=== PATIENT | female | born 1985 | race Caucasian/White ===

== ENCOUNTER 2024-03-09 08:19 | Outpatient (AMB) | payer OTHER, SELFPAY ==
--- NOTE | 2024-03-09 08:29 | A.OFFVIS_ITS ---
Vital Signs 03/09/24 08:42 Height 6 ft 3 in Weight 250 lb BMI 31.2 Handedness Right Intake Visit Reasons: [employer]ATOR-Left lower back pain Intake Note: Radha is a 38 year old female who presents today as a new patient with complaints of left lower back pain. Patient reports that she has had worsening left sided lower back pain for about 2 months now. She reports that they tweaked her back about 10 years ago and ever since then she has had on and off pain for years now. With episodes of pain she was able to ice and rest and have the pain resolve. Recently when moving boxed this pain has returned, increased pain, numbness and tingling radiating down the left leg. Has tried steroids (prednisone), muscle relaxers, and OTC NSIADS with no relief. Allergies Sulfa (Sulfonamide Antibiotics) Allergy (Verified 03/09/24 08:37) Anaphylaxis Medication List - Last Reconciled 03/09/24 by Aziza Goyal MD 5-hydroxytryptophan (5-HTP) 50 mg PO BID albuterol sulfate 2 mg PO Q8H atorvastatin 10 mg PO DAILY bupropion HCl XL 300 mg PO QAM buspirone 15 mg PO BID cetirizine (All Day Allergy (cetirizine)) 10 mg PO DAILY PRN docusate sodium 100 mg PO BID estradiol (Estrace) 2 mg PO DAILY finasteride 1 mg PO DAILY fluticasone propionate 44 mcg/actuation 1 puff inhalation BID lisinopril 20 mg PO DAILY medroxyprogesterone 2.5 mg PO DAILY omeprazole 20 mg PO DAILY HPI Comments Details: Per review of PCP notes, patient has history of long COVID, knee DJD, hypermobility of joints, bipolar, ADHD, chronic hormone treatment, asthma, postural hypotension. Here with partner. Was doing well 2 months ago. Started after mowing and moving boxes. She had tweaked back before on/off, but this time it did not get better with usual rest and NSAIDs. Continued with left sided pain, down to left thigh, with buzzing on left calf. Some tingling/pins/needles on left thigh but not on toes. Sense of weakness, left knee and hip. Left groin. Treatment done so far: Prescribed prednisone by PCP - helped partially done exercises and stretches at home No imaging or PT yet. PFSH Surgical History (Updated 03/09/24 @ 08:42 by Roselia Moran CMA) Hx laparoscopic cholecystectomy Status post left foot surgery Social History (Updated 03/09/24 @ 08:42 by Roselia Moran CMA) Patient Tobacco Use Status: Never used Tobacco Current occupational status: unemployed Review of Systems Const All systems reviewed & are unremarkable except as noted in HPI and below Physical Exam Vital Signs: BMI result Body Mass Index 31.2 Constitutional: Patient appears to be in no acute distress, well nourished and well developed. Patient was appropriately conversant and oriented. Good historian. MSK: No specific abnormalities found on inspection of the spine and all extremities. No pain with palpation over the lumbar area. No tenderness overuj spinous processes or facets are paraspinals. Tender on left SI joint and slightly on gluteus muscles. Nontender and GT. Lumbar ROM was full. Bilateral hip, knee and ankle ROM WNL. No ligamentous laxity or crepitance. No increased effusion. Straight-leg raising test negative. FABERE test positive left back pain. Strength is 5/5 in all muscle groups tested. No increased tone noted. Neurological: Neurologic examination of the upper and lower extremities was nonfocal with intact sensation, muscle stretch reflexes and without focal motor deficits . Francisco?s negative bilaterally. Babinski was down going bilaterally. Clonus was negative. Gait is antalgic without loss of balance. Results Reviewed Results Reviewed: I reviewed records from the following: Notes from [facility] Assessment & Plan Assessment & Plan (1) Sacroiliac joint dysfunction of left side: Code(s): M53.3 - Sacrococcygeal disorders, not elsewhere classified Category: Medical Plan Acute onset left-sided back pain, presenting as left SI joint dysfunction. No signs of lumbar radiculopathy or myelopathy on exam. Discussed what SI joint dysfunction is with patient. Recommend starting physical therapy. Referral placed. Getting lumbar x-rays just for our information today, but lower suspicion this is lumbar related. As patient has already tried medications such as anti-inflammatories and muscle relaxants, she has looking for a more definitive pain relief. We discussed possible left SI joint injection. She understands that I will have to refer to pain management for the injection to be done under fluoroscopy or ultrasound. Patient is eager to proceed. Assessment and plan discussed with patient, and patient was agreeable. All questions were answered thoroughly. Follow-up after injection. Aziza Goyal MD, ELENA Board Certified, [place] [employer] and Rehabilitation (ABPMR) Board Certified, [place] [employer] Electrodiagn[employer] (ABEM) Orders: Orders XR lumbar spine 2-3V Today M53.3 - Sacrococcygeal disorders, not elsewhere classified, M54.9 - Dorsalgia, unspecified PT Evaluation and Treatment Today M53.3 - Sacrococcygeal disorders, not e lsewhere classified Referrals Pain Management Referral M53.3 - Sacrococcygeal disorders, not elsewhere classified Coding Level of Care Code New Pt Level 4 (72846) Diagnoses Sacroiliac joint dysfunction of left side M53.3
[2024-03-09 08:42] VITALS: BMI 31.2
== END 2024-03-09 09:47 | disposition home or self-care (01) ==
PROVIDERS: PCP Family Medicine; Visit Provider Physical Medicine & Rehabilitation
DX: M53.3 Sacrococcygeal disorders, not elsewhere classified (principal)
CPT/HCPCS: 99204

== ENCOUNTER 2024-03-09 08:19 | Outpatient (REF) | payer OTHER, SELFPAY ==
--- NOTE | ~2024-03-09 | XR_ITS ---
EXAMINATION: XR LUMBOSACRAL SPINE CLINICAL INFORMATION: Back pain COMPARISON: None available. TECHNIQUE: Three views of the lumbosacral spine. FINDINGS: Surgical clips in the right upper quadrant. Mild levoscoliosis of the lumbar spine. Straightening of the normal lumbar lordosis. Facet arthritis in the lower lumbar spine. Mild degenerative changes at L5-S1. XR/XR lumbar spine 2-3V IMPRESSION: Mild degenerative changes at L5-S1.
== END 2024-03-09 08:20 | disposition home or self-care (01) ==
LOC: HO.HOSX 08:19
PROVIDERS: PCP Family Medicine; Visit Provider Physical Medicine & Rehabilitation
DX: M53.3 Sacrococcygeal disorders, not elsewhere classified (principal); M54.9 Dorsalgia, unspecified
CPT/HCPCS: 72100

== ENCOUNTER 2024-03-16 08:15 | Outpatient (AMB) | payer OTHER, SELFPAY ==
--- NOTE | 2024-03-16 08:18 | MHC.OFFVIS ---
Vital Signs 03/16/24 08:41 Height 6 ft 3 in Weight 252 lb BMI 31.5 BP 131/74 Blood Pressure Location Lt brachial Position Sitting Respiration 18 Pulse 78 Pulse Source Pulse Oximeter Pulse Oximetry (%) 97 Oxygen Delivery Method Room Air Intake Visit Reasons: Sacrococcygeal disorders, not elsewhere classified Intake Note: Patient comes in for initial visit was referred by Orthopedics. Reports pain 04/30. Allergies Sulfa (Sulfonamide Antibiotics) Allergy (Verified 03/09/24 08:37) Anaphylaxis HPI Comments Details: Radha is very pleasant 38 y.o. Female who is in my office with c/o pain in the left side of the lower back with radiation into posterior surface of the left hip and tingling sensation in the left upper calf. She reports that this pain started to bother her almost 3 months ago. She reports that heavy lifting and moving staff in her house was the cause of her pain. She can not sleep normally because of her pain can not do activities of daily living she can not take care of herself but she can not function normally. She is unemployed and applying for permanent disability for bipolar disorder autism and ADHD. She reports difficulty walking due to the pain. She reports that movements aggravate her pain application of heat and cold make her pain slightly better. In terms of tissue damage he reports her pain as tingling, stinging, dull, hurting, heavy, fearful, fried full, terrifying, spreading, radiating, piercing. She currently takes NSAIDs and muscle relaxants to help her pain. She reports that muscle relaxants help her to sleep at night but NSAIDs help her pain very minimally. She was seen by Dr. Ramos for this problem and was referred to me. She had x-ray of the lumbar spine on 03/09/2024 the x-rays not read yet. I personally evaluated the x-ray the maybe minimal L5 retrolisthesis on S1 otherwise unremarkable x-ray. She was sent for physical therapy however due to staffing shortage at physical therapy office she is scheduled to start physical therapy only in 03/28/2024. She did not have chiropractic manipulations or massage therapy. She never was given sacroiliac joint belt. She never received any injections. Her past medical history significant for headaches, hypertension she is on lisinopril, she is suffering from ADHD, bipolar, and autism. She has history of asthma GERD irritable bowel syndrome gastritis and hiatal hernia. She has bilateral knee arthritis. Past surgical history cholecystectomy 2019, some sort of a procedure for the foot when she was in 4th grade and she had unknown abdominal surgery 37 years ago. She denies smoking cigarettes drinking alcohol she drinks several cups of coffee per day she denies recreational drugs, but admits that she had drinking problems in college. Never was in rehab. [facility] Surgical History (Updated 03/09/24 @ 08:42 by Roselia Moran CMA) Hx laparoscopic cholecystectomy Status post left foot surgery Social History (Updated 03/09/24 @ 08:42 by Roselia Moran CMA) Patient Tobacco Use Status: Never used Tobacco Current occupational status: unemployed Review of Systems Const All systems reviewed & are unremarkable except as noted in HPI and below Reports no additional complaints Card Reports no additional complaints Resp Reports no additional complaints GI Reports no additional complaints Reports no additional complaints Musc Reports as per HPI Neuro Reports no additional complaints Psych Reports as per HPI Physical Exam Vital Signs: Last Vital Signs Pulse 78 03/16/24 08:41 Resp 18 03/16/24 08:41 BP 131/74 03/16/24 08:41 Pulse Ox 97 03/16/24 08:41 Oxygen Delivery Method Room Air 03/16/24 08:41 BMI result Body Mass Index 31.5 Constitutional: Patient appears to be in no acute distress, well nourished and well developed. Patient was appropriately conversant and oriented. Good historian. MSK: No specific abnormalities found on inspection of the spine and all extremities. No pain with palpation over the lumbar area. No tenderness overuj spinous processes or facets are paraspinals. Tender on left SI joint and slightly on gluteus muscles. Nontender and GT. Limited range of motion of lumbar spine unable to flex forward or backwards due to severe pain in the projection of left SI joint. Luis test is negative bilaterally however Gaenslen test is positive on the left and performance of Gaenslen test on the right and Stinchfield test on the right cause pain aggravation on the left. Pelvic compression aggravates the pain but not pelvic distraction. Fourteen finger test is positive for pain increase. Bilateral hip, knee and ankle ROM WNL. No ligamentous laxity or crepitance. No increased effusion. Straight-leg raising test negative. Able to stand on bilateral tiptoes and bilateral heels without difficulty able to lift 1st toe in separation of the rest of the toes without difficulty. That demonstrates normal L4-5 S1 muscular function. Neurological: Neurologic examination of the upper and lower extremities was nonfocal with intact sensation, muscle stretch reflexes and without focal motor deficits . Gait is antalgic without loss of balance. Assessment & Plan Assessment & Plan (1) Sacroiliitis: Code(s): M46.1 - Sacroiliitis, not elsewhere classified Category: Medical (2) Sacroiliac joint dysfunction of left side: Code(s): M53.3 - Sacrococcygeal disorders, not elsewhere classified Category: Medical Plan I offered this patient diagnostic sacroiliac joint injection to diagnose her joint pain. She will start physical therapy in week and a half. I will see the patient after sacroiliac joint injection. She has extensive psych history and this could be on our way with neuromodulation in this patient. Patient Instructions: I here by testify that I spent 45 minutes in conversation with this patient as well as evaluating images in her chart which were not read by radiologist, as well as planning her care and organizing this note. Coding Level of Care Code New Pt Level 4 (29037) Diagnoses Sacroiliitis M46.1 Sacroiliac joint dysfunction of left side M53.3
[2024-03-16 08:41] VITALS: BP 131/74; PULSE 78; RESP 18; O2SAT 97; BMI 31.5
== END 2024-03-16 08:57 | disposition home or self-care (01) ==
PROVIDERS: PCP Family Medicine; Visit Provider Anesthesiology
DX: M46.1 Sacroiliitis, not elsewhere classified (principal); M53.3 Sacrococcygeal disorders, not elsewhere classified
CPT/HCPCS: 99204

== ENCOUNTER → 2024-03-16 08:15 | Outpatient (BNVA) | payer OTHER, SELFPAY | PROVIDERS: PCP Family Medicine; Visit Provider Anesthesiology ==

== ENCOUNTER 2024-04-04 09:20 | Outpatient (AMB) | payer OTHER, SELFPAY ==
--- NOTE | 2024-04-04 09:24 | A.OFFVIS_ITS ---
Vital Signs 04/04/24 10:51 Height 6 ft 2 in Weight 252 lb 4 oz BMI 32.4 BP 132/68 Blood Pressure Location Lt brachial Position Sitting Respiration 18 Pulse 82 Pulse Source Pulse Oximeter Pulse Oximetry (%) 98 Oxygen Delivery Method Room Air Intake Visit Reasons: X-ray showed mild degeneration Intake Note: Patient comes in to discuss Xray results. Reports pain 03/30. Allergies Sulfa (Sulfonamide Antibiotics) Allergy (Verified 04/04/24 10:52) Anaphylaxis HPI Comments Details: Radha is very pleasant 38 y.o. Female who is in my office with c/o pain in the left side of the lower back with radiation into posterior surface of the left hip and tingling sensation in the left upper calf. She was diagnosed with sacroiliitis and we were scheduling her for sacroiliac joint injection. She has waiting for the procedure. She reports severe pain today. She is here to discuss the results of the x-ray of the lumbar spine. Lumbar spine results are dictated as below. There is evidence of arthritis on the lumbar spine x-ray. If SI joint injection will be not helpful for controlling her pain medial branch block L3 L4-5 on the left could be ordered diagnostic to figure out where her pain is coming from. He has PTSD and anxiety history her ability to receive neuromodulation is limited. Prior: She reports that this pain started to bother her almost 3 months ago. She reports that heavy lifting and moving staff in her house was the cause of her pain. She reports difficulty walking due to the pain. She reports that movements aggravate her pain application of heat and cold make her pain slightly better.. She reports that muscle relaxants help her to sleep at night but NSAIDs help her pain very minimally. She was seen by Dr. Ramos for this problem and was referred to me. She had x-ray of the lumbar spine on 03/09/2024 the x-rays not read yet. I personally evaluated the x-ray the maybe minimal L5 retrolisthesis on S1 otherwise unremarkable x-ray. She was sent for physical therapy however due to staffing shortage at physical therapy office she is scheduled to start physical therapy only in 03/28/2024. She did not have chiropractic manipulations or massage therapy. She never was given sacroiliac joint belt. She never received any injections. Her past medical history significant for headaches, hypertension she is on lisinopril, she is suffering from ADHD, bipolar, and autism. She has history of asthma GERD irritable bowel syndrome gastritis and hiatal hernia. She has bilateral knee arthritis. Past surgical history cholecystectomy 2020, some sort of a procedure for the foot when she was in 4th grade and she had unknown abdominal surgery 37 years ago. [facility] Surgical History (Updated 03/09/24 @ 08:42 by Roselia Moran CMA) Hx laparoscopic cholecystectomy Status post left foot surgery Social History (Updated 03/09/24 @ 08:42 by Roselia Moran CMA) Patient Tobacco Use Status: Never used Tobacco Current occupational status: unemployed Review of Systems Const All systems reviewed & are unremarkable except as noted in HPI and below Physical Exam Vital Signs: Last Vital Signs Pulse 82 04/04/24 10:51 Resp 18 04/04/24 10:51 BP 132/68 04/04/24 10:51 Pulse Ox 98 04/04/24 10:51 Oxygen Delivery Method Room Air 04/04/24 10:51 BMI result Body Mass Index 32.4 Constitutional: Patient appears to be in no acute distress, well nourished and well developed. Patient was appropriately conversant and oriented. Good historian. MSK: No specific abnormalities found on inspection of the spine and all extremities. No pain with palpation over the lumbar area. No tenderness overuj spinous processes or facets are paraspinals. Tender on left SI joint and slightly on gluteus muscles. Nontender and GT. Limited range of motion of lumbar spine unable to flex forward or backwards due to severe pain in the projection of left SI joint. Luis test is negative bilaterally however Gaenslen test is positive on the left and performance of Gaenslen test on the right and Stinchfield test on the right cause pain aggravation on the left. Pelvic compression aggravates the pain but not pelvic distraction. Fourteen finger test is positive for pain increase. Bilateral hip, knee and ankle ROM WNL. No ligamentous laxity or crepitance. No increased effusion. Straight-leg raising test negative. Able to stand on bilateral tiptoes and bilateral heels without difficulty able to lift 1st toe in separation of the rest of the toes without difficulty. That demonstrates normal L4-5 S1 muscular function. Neurological: Neurologic examination of the upper and lower extremities was nonfocal with intact sensation, muscle stretch reflexes and without focal motor deficits . Gait is antalgic without loss of balance. Results Reviewed Results Reviewed: X-ray lumbar spine: 03/09/24 Findings: Surgical clips in the right upper quadrant. Mild levoscoliosis in the lumbar spine. Straightening of the normal lumbar lordosis. Facet arthritis in the lower lumbar spine. Mild degenerative changes L5-S1. Assessment & Plan Assessment & Plan (1) Sacroiliitis: Code(s): M46.1 - Sacroiliitis, not elsewhere classified Category: Medical (2) Sacroiliac joint dysfunction of left side: Code(s): M53.3 - Sacrococcygeal disorders, not elsewhere classified Category: Medical Plan I offered this patient diagnostic sacroiliac joint injection to diagnose her joint pain. The procedure is scheduled on 04/12/2024. She started physical therapy. X-ray discussion as above. She has arthritis in the lower lumbar spine. If diagnostic SI joint injection will not be working medial branch block L3-L4 dorsal ramus L5 on the left can be tried to diagnose her pain. Coding Level of Care Code Est Pt Level 3 (28889) Diagnoses Sacroiliitis M46.1 Sacroiliac joint dysfunction of left side M53.3
[2024-04-04 10:51] VITALS: BP 132/68; PULSE 82; RESP 18; O2SAT 98; BMI 32.4
== END 2024-04-04 09:38 | disposition home or self-care (01) ==
PROVIDERS: PCP Family Medicine; Visit Provider Anesthesiology
DX: M46.1 Sacroiliitis, not elsewhere classified (principal); M53.3 Sacrococcygeal disorders, not elsewhere classified
CPT/HCPCS: 99214

== ENCOUNTER → 2024-04-04 09:20 | Outpatient (BNVA) | payer OTHER, SELFPAY | PROVIDERS: PCP Family Medicine; Visit Provider Anesthesiology ==

== ENCOUNTER 2024-04-05 07:20 | Outpatient (REF) | payer OTHER, SELFPAY ==
--- NOTE | ~2024-04-05 | FL_ITS ---
EXAMINATION: XR FLUOROSCOPY WITH IMAGES CLINICAL INFORMATION: Sacrococcygeal disorder. COMPARISON: None available. TECHNIQUE: Fluoroscopy Supervised By: Dr. Dl Moran. Fluoroscopy Time: 0.1 minutes. Cumulative Dose: 3.76 mGy. DAP: 0.0653 Gy-cm2. Images: 5. FINDINGS: Intraoperative fluoroscopy and spot films were performed during a procedure in the OR. The needle is seen overlying the left SI joint with contrast seen around the needle tip. Please correlate with Dr. Dl Moran's report for complete details. FL/FL guidance in treatment room IMPRESSION: Intraoperative fluoroscopy and spot films were obtained. Please see Dr. Dl Moran's report for complete details.
== END 2024-04-05 07:21 | disposition home or self-care (01) ==
LOC: CF 07:20
PROVIDERS: Visit Provider Anesthesiology
DX: M53.3 Sacrococcygeal disorders, not elsewhere classified (principal)
CPT/HCPCS: 27096; J2795; Q9967

== ENCOUNTER 2024-04-05 07:29 | Outpatient (AMB) | payer OTHER, SELFPAY ==
[2024-04-05 07:38] VITALS: BP 118/62; PULSE 89; RESP 14; O2SAT 98; BMI 31.2
--- NOTE | 2024-04-05 07:38 | MHC.OFFVIS ---
Vital Signs 04/05/24 07:38 04/05/24 08:11 Height 6 ft 3 in Weight 250 lb BMI 31.2 BMI Reason not done Palliative Care Patient BP 118/62 130/70 Blood Pressure Location Lt brachial Lt brachial Position Sitting Sitting Respiration 14 14 Pulse 89 84 Pulse Source Pulse Oximeter Pulse Oximeter Pulse Oximetry (%) 98 98 Oxygen Delivery Method Room Air Room Air Comment Pre-Op Post-Op Intake Visit Reasons: Left Diagnostic SIJ INJ Security Support Analyst Required: No Accompanied by: Family/Other Allergies Sulfa (Sulfonamide Antibiotics) Allergy (Verified 04/04/24 10:52) Anaphylaxis PFSH Surgical History (Updated 03/09/24 @ 08:42 by Roselia Moran CMA) Hx laparoscopic cholecystectomy Status post left foot surgery Social History (Updated 03/09/24 @ 08:42 by Roselia Moran CMA) Patient Tobacco Use Status: Never used Tobacco Current occupational status: unemployed Physical Exam Vital Signs: Last Vital Signs Pulse 84 04/05/24 08:11 Resp 14 04/05/24 08:11 BP 130/70 04/05/24 08:11 Pulse Ox 98 04/05/24 08:11 Oxygen Delivery Method Room Air 04/05/24 08:11 BMI result Body Mass Index 31.2 Assessment & Plan Assessment & Plan (1) Sacroiliitis: Code(s): M46.1 - Sacroiliitis, not elsewhere classified Category: Medical (2) Sacroiliac joint dysfunction of left side: Code(s): M53.3 - Sacrococcygeal disorders, not elsewhere classified Category: Medical Plan Left diagnostic sacroiliac joint injection Informed consent was explained thoroughly to the patient. All questions about benefits and risks for the procedure were answered. Patient came to the operating room and was positioned prone on the operating table with the pillow under the pelvis. Time out was performed delineating name and of the patient, allergies and the nature of the procedure. The lower back and buttocks of the patient were prepped with ChloraPrep prepped and draped with sterile utility towels. C-arm was brought over the operating field and sq picture of patient's pelvis was demonstrated on the screen. For the left joint tilting C-arm contralateral to the site of the joint the most posterior portion of the joints was superimposed with anterior silhouette of the joint. Skin was injected in the projection of the joint slightly medial to the location of the joint with 25 gauge 1/2 inch needle using local lidocaine 2% .After that 22 gauge 3 and 1/2 inch needle was driven to the right joint in tunnel vision fashion. When needle entered the joint capsule injection of the contrast was performed demonstrating intra-articular and minimally periarticular spread of the contrast. After that 4 cc. of ropivacaine 0.5% was injected into the joint. Upon completion of the injections the needle was removed Sterile dressing was applied. Upon completion of the injection patient was taken outside of the operating room to the recovery room where recovered uneventfully. Orders: Orders FL guidance in treatment room Today M53.3 - Sacrococcygeal disorders, not elsewhere classified Coding Level of Care Code Procedure Only Diagnoses Sacroiliitis M46.1 Sacroiliac joint dysfunction of left side M53.3
[2024-04-05 08:11] VITALS: BP 130/70; PULSE 84; RESP 14; O2SAT 98
== END 2024-04-05 08:12 | disposition home or self-care (01) ==
PROVIDERS: PCP Family Medicine; Visit Provider Anesthesiology
DX: M46.1 Sacroiliitis, not elsewhere classified (principal); M53.3 Sacrococcygeal disorders, not elsewhere classified
CPT/HCPCS: 27096

== ENCOUNTER 2024-04-08 11:19 | Outpatient (AMB) | payer OTHER, SELFPAY ==
--- NOTE | 2024-04-08 11:22 | MHC.OFFVIS ---
Intake Visit Reasons: left dx sij injection Intake Note: Pain today 3/10 Epitaxial Reactor Technician Required: No Accompanied by: Self / Same As Patient Allergies Sulfa (Sulfonamide Antibiotics) Allergy (Verified 04/08/24 11:29) Anaphylaxis HPI Comments Details: Radha is back in my office with the reports of the results of diagnostic left sacroiliac joint injection. She reported that she had pain 7/10 before the procedure. Immediately after the procedure she had pain 6/10. 1 hour after procedure she had pain 4/10. 2 hours after the procedure she had pain 6/10. 3 hours after the procedure she had pain 6/10. 4 hours after the procedure she had pain 4/10 as well as 6 and 5 hours after the procedure. However in her description of daily activities after the procedure it was very clear that her ability to perform activities of daily living and mobility greatly improved after the injection. I still am willing to consider at least some of her pain related to sacroiliitis. She reports that today 3 days after the procedure her pain is 3/10. She reports better mobility better activities of daily living better social interaction. I decided to perform therapeutic sacroiliac joint injection on the left for the patient. She continues to report pain in the projection of the sacral bone. For the investigation with bony CT of the pelvis might be required. Prior: c/o pain in the left side of the lower back with radiation into posterior surface of the left hip and tingling sensation in the left upper calf. She was diagnosed with sacroiliitis and we were scheduling her for sacroiliac joint injection. She has waiting for the procedure. She reports severe pain today. She is here to discuss the results of the x-ray of the lumbar spine. Lumbar spine results are dictated as below. There is evidence of arthritis on the lumbar spine x-ray. If SI joint injection will be not helpful for controlling her pain medial branch block L3 L4-5 on the left could be ordered diagnostic to figure out where her pain is coming from. He has PTSD and anxiety history her ability to receive neuromodulation is limited. Prior: She reports that this pain started to bother her almost 3 months ago. She reports that heavy lifting and moving staff in her house was the cause of her pain. She reports difficulty walking due to the pain. She reports that movements aggravate her pain application of heat and cold make her pain slightly better.. She reports that muscle relaxants help her to sleep at night but NSAIDs help her pain very minimally. She was seen by Dr. Ramos for this problem and was referred to me. She had x-ray of the lumbar spine on 03/09/2024 the x-rays not read yet. I personally evaluated the x-ray the maybe minimal L5 retrolisthesis on S1 otherwise unremarkable x-ray. She was sent for physical therapy however due to staffing shortage at physical therapy office she is scheduled to start physical therapy only in 03/28/2024. She did not have chiropractic manipulations or massage therapy. She never was given sacroiliac joint belt. She never received any injections. Her past medical history significant for headaches, hypertension she is on lisinopril, she is suffering from ADHD, bipolar, and autism. She has history of asthma GERD irritable bowel syndrome gastritis and hiatal hernia. She has bilateral knee arthritis. Past surgical history cholecystectomy 2019, some sort of a procedure for the foot when she was in 4th grade and she had unknown abdominal surgery 37 years ago. [facility] Surgical History (Updated 03/09/24 @ 08:42 by Roselia Moran CMA) Hx laparoscopic cholecystectomy Status post left foot surgery Social History (Updated 03/09/24 @ 08:42 by Roselia Moran CMA) Patient Tobacco Use Status: Never used Tobacco Current occupational status: unemployed Review of Systems Const All systems reviewed & are unremarkable except as noted in HPI and below Physical Exam Constitutional: Patient appears to be in no acute distress, well nourished and well developed. Patient was appropriately conversant and oriented. Good historian. MSK: No specific abnormalities found on inspection of the spine and all extremities. No pain with palpation over the lumbar area. No tenderness overuj spinous processes or facets are paraspinals. Tender on left SI joint and slightly on gluteus muscles. Nontender and GT. Limited range of motion of lumbar spine unable to flex forward or backwards due to severe pain in the projection of left SI joint. Luis test is negative bilaterally however Gaenslen test is positive on the left and performance of Gaenslen test on the right and Stinchfield test on the right cause pain aggravation on the left. Pelvic compression aggravates the pain but not pelvic distraction. Fourteen finger test is positive for pain increase. Bilateral hip, knee and ankle ROM WNL. No ligamentous laxity or crepitance. No increased effusion. Straight-leg raising test negative. Able to stand on bilateral tiptoes and bilateral heels without difficulty able to lift 1st toe in separation of the rest of the toes without difficulty. That demonstrates normal L4-5 S1 muscular function. Neurological: Neurologic examination of the upper and lower extremities was nonfocal with intact sensation, muscle stretch reflexes and without focal motor deficits . Gait is antalgic without loss of balance. Assessment & Plan Assessment & Plan (1) Sacroiliitis: Code(s): M46.1 - Sacroiliitis, not elsewhere classified Category: Medical (2) Sacroiliac joint dysfunction of left side: Code(s): M53.3 - Sacrococcygeal disorders, not elsewhere classified Category: Medical Plan Diagnostic sacroiliac joint injection seem to be covering at least 1 of the patient's pain generators. The pain got decreased for 3 days from 7/10 to 3/10. Better mobility and better social interactions better activities of daily living are demonstrated. I will schedule patient for left therapeutic sacroiliac joint injection. I also will consider investigation of other pain generators including medial branches and or spinal stenosis in the future if I will receive only partial pain relief after the therapeutic SI joint injection. Coding Level of Care Code Est Pt Level 3 (95124) Diagnoses Sacroiliitis M46.1 Sacroiliac joint dysfunction of left side M53.3
== END 2024-04-08 11:44 | disposition home or self-care (01) ==
PROVIDERS: PCP Family Medicine; Visit Provider Anesthesiology
DX: M46.1 Sacroiliitis, not elsewhere classified (principal); M53.3 Sacrococcygeal disorders, not elsewhere classified
CPT/HCPCS: 99213

== ENCOUNTER → 2024-04-08 11:19 | Outpatient (BNVA) | payer OTHER, SELFPAY | PROVIDERS: PCP Family Medicine; Visit Provider Anesthesiology ==

== ENCOUNTER 2024-05-17 15:00 | Outpatient (RCR) | payer OTHER, SELFPAY ==
--- NOTE | 2024-03-29 09:51 | MHC.PT.EP ---
[facility] [place] [facility] [place] [facility] [place] [facility] [address] Gerald Rodriguez [address] [phone] F: [phone] F: [phone] F: [phone] F: [phone] Physical Therapy Plan of Care Date of Evaluation: 03/28/24 Date of Surgery: N/A Diagnosis: left SI (RL) Assessment: pt is a 39 y/o female presenting to physical therapy w/ referring diagnosis of left SI. Impairments include pain, decreased range of motion, decreased strength, impaired functional mobility, impaired postural awareness, and altered ambulation mechanics. pt is a good candidate for skilled PT due to age, potential remediation of impairments, typical disease/condition progression and prognosis, comorbidities, and motivation. pt would benefit from skilled PT intervention to provide a tailored strengthening and stretching exercise program, functional training, gait training, postural re-training, neuromuscular re-education, modalities as needed for pain, equipment safety demonstration. Frequency and Duration: The patient will be seen 2x/wk for 4 wks Short Term Goals: pt will be I w/ HEP to promote self-management of condition. pt will improve lumbar flexion by at least 25% to promote ease in lower body dressing. pt will demo proper sitting posture w/ lumbar roll to promote neutral spine w/ seated ADLs. [facility] Goals: pt will report a statistically significant improvement in self-reported outcome measure, Ines, to promote return to PLOF. pt will demo proper lifting mechanics w/o verbal cueing to promote neutral spine w/ automotive artist. Treatment Plan: Modalities to reduce pain, spasms and effusion. Manual therapy to restore motion and function. Therapeutic exercise to improve strength and flexibility. Neuromuscular re-education for posture and balance. Therapeutic activities to return to functional activities of daily living. Electronically signed by: Cookie Jeffers PT, DPT Please sign and return to therapist. Thank you for your referral.
--- NOTE | 2024-05-17 16:16 | MHC.PT.DC ---
[facility] [place] Office [place] Office [place] Office [address] Gerald Rodriguez [address] [phone] F: [phone] F: [phone] F: [phone] F: [phone] Physical Therapy Discharge Report Diagnosis: left SI (RL) Date of Surgery: N/A Date of Evaluation: 03/28/24 Date of Discharge: 05/17/24 Treatments to Date: 9 Cancellations to Date: 2 No Shows to Date: 0 Discharge Status: Achieved Goals Improved Function Independent with HEP Discharge Summary: Pt reported no radicular sx throughout today's session. She has made significant improvement toward functional goals, remediation of some strength deficits, core stability, and self-management of symptoms. HEP reviewed. Pt is discharged from this physical therapy plan of care with recommendations to continue HEP. Electronically signed by: Cookie Jeffers PT, DPT Please sign and return to therapist. Thank you for your referral.
--- NOTE | 2024-05-17 16:16 | MHC.PT.DC ---
[facility] [address] [place] Office [place] Office [address] Gerald Rodriguez [address] [phone] F: [phone] F: [phone] F: [phone] F: [phone] Physical Therapy Discharge Report Diagnosis: left SI (RL) Date of Surgery: N/A Date of Evaluation: 03/28/24 Date of Discharge: 05/17/24 Treatments to Date: 9 Cancellations to Date: 2 No Shows to Date: 0 Discharge Status: Achieved Goals Improved Function Independent with HEP Discharge Summary: Pt reported no radicular sx throughout today's session. She has made significant improvement toward functional goals, remediation of some strength deficits, core stability, and self-management of symptoms. HEP reviewed. Pt is discharged from this physical therapy plan of care with recommendations to continue HEP. Electronically signed by: Cookie Jeffers PT, DPT Please sign and return to therapist. Thank you for your referral.
--- NOTE | 2024-05-17 16:18 | MHC.PT.DC ---
[facility] [place] Office [place] Office [place] Office [address] Gerald Rodriguez [address] [phone] F: [phone] F: [phone] F: [phone] F: [phone] Physical Therapy Discharge Report Diagnosis: left SI (RL) Date of Surgery: N/A Date of Evaluation: 03/28/24 Date of Discharge: 05/17/24 Treatments to Date: 9 Cancellations to Date: 2 No Shows to Date: 0 Discharge Status: Achieved Goals Improved Function Independent with HEP Discharge Summary: Pt reported no radicular sx throughout today's session. She has made significant improvement toward functional goals, remediation of some strength deficits, core stability, and self-management of symptoms. HEP reviewed. Pt is discharged from this physical therapy plan of care with recommendations to continue HEP. Electronically signed by: Cookie Jeffers PT, DPT Please sign and return to therapist. Thank you for your referral.
--- NOTE | 2024-05-17 16:19 | MHC.PT.DC ---
[facility] [place] Office [place] Office [place] Office [address] Gerald Rodriguez [address] [phone] F: [phone] F: [phone] F: [phone] F: [phone] Physical Therapy Discharge Report Diagnosis: left SI (RL) Date of Surgery: N/A Date of Evaluation: 03/28/24 Date of Discharge: 05/17/24 Treatments to Date: 9 Cancellations to Date: 2 No Shows to Date: 0 Discharge Status: Achieved Goals Improved Function Independent with HEP Discharge Summary: Pt reported no radicular sx throughout today's session. She has made significant improvement toward functional goals, remediation of some strength deficits, core stability, and self-management of symptoms. HEP reviewed. Pt is discharged from this physical therapy plan of care with recommendations to continue HEP. Electronically signed by: Cookie Jeffers PT, DPT Please sign and return to therapist. Thank you for your referral.
== END 2024-05-17 16:19 | disposition home or self-care (01) ==
LOC: HO.PT 15:00
PROVIDERS: PCP Family Medicine; Visit Provider Physical Medicine & Rehabilitation
DX: M53.3 Sacrococcygeal disorders, not elsewhere classified (principal)
CPT/HCPCS: 97110; 97112; 97140; 97162; 97164

== ENCOUNTER 2024-07-21 11:06 | Emergency (ER) | payer OTHER, SELFPAY | END 2024-07-21 15:35 | disposition left against medical advice (07) | PROVIDERS: Emergency Provider Emergency Medicine; PCP Family Medicine | DX: Z53.21 Procedure and treatment not carried out due to patient leaving prior to being seen by health care provider (principal) ==

== ENCOUNTER 2024-11-02 08:30 | Outpatient (AMB) | payer OTHER, SELFPAY ==
[2024-11-02 08:38] VITALS: BP 142/78; PULSE 90; O2SAT 99; BMI 31.2
--- NOTE | 2024-11-02 08:38 | MHC.OFFVIS ---
Vital Signs 11/02/24 08:38 Height 6 ft 3 in Weight 250 lb BMI 31.2 BP 142/78 H Blood Pressure Location Rt brachial Position Sitting Pulse 90 Pulse Source Pulse Oximeter Pulse Oximetry (%) 99 Oxygen Delivery Method Room Air Intake Visit Reasons: IBS-D. Initial per [facility]. Intake Note: NEW PATIENT for IBS Consult initial Prior hx of colo/egd? Within the last 3 years via [place] Chief Complaint; Pt recently moved to the area. Previously est scot [facility]; Reflux with mixed results to PPI treatment, hx of hiatal hernia + gastritis. S/P cholecystectomy. Director Of Guidance Required: No Accompanied by: Self / Same As Patient Allergies Sulfa (Sulfonamide Antibiotics) Allergy (Verified 04/08/24 11:29) Anaphylaxis HPI HPI IBS-D. Initial per [facility].: Details: 39-year-old female with past medical history of PTSD, GERD, hypertension, hiatal hernia, IBS, asthma, chronic post COVID syndrome, bipolar, osteoarthritis of knee, autism spectrum is here today for initial consultation. Patient reports that about 3 years ago or so [facility] patient had GI workup that included upper endoscopies. Patient was diagnosed with hiatal hernia. Patient reports that she has been on omeprazole for sometimes, however she feels like it is not working. Patient continues to have epigastric pain postprandially and acid reflux. Patient also reports severe abdominal bloating. Her bowels go anywhere between soft, hard or loose. Diagnosed with IBS in the past. Patient denies any nausea or vomiting. Patient denies any melena, hematochezia, unintentional weight loss or ribbon like stools. [facility] Medical History (Updated 11/02/24 @ 09:08 by POLO Dewey) GERD (gastroesophageal reflux disease) Gastritis Hiatal hernia IBS (irritable bowel syndrome) Surgical History (Updated 11/02/24 @ 09:08 by POLO Dewey) Hx of colonoscopy Hx laparoscopic cholecystectomy Status post left foot surgery Social History Patient Tobacco Use Status: Never used Tobacco Current occupational status: unemployed Review of Systems Const Denies weight gain and Denies weight loss ENT Reports no additional complaints, Denies dysphagia and Denies odynophagia Card Reports no additional complaints Resp Reports no additional complaints GI Denies abdominal pain, Denies belching, Denies melena, Denies bloating, Denies change in bowel habits, Denies dysphagia, Denies excessive flatus, Denies dyspepsia, Denies heartburn, Denies diarrhea, Denies loose stools, Denies nausea, Denies odynophagia and Denies vomiting Musc Reports no additional complaints Neuro Reports no additional complaints Psych Reports no additional complaints Endo Reports no additional complaints Physical Exam Vital Signs: Last Vital Signs Pulse 90 11/02/24 08:38 BP 142/78 H 11/02/24 08:38 Pulse Ox 99 11/02/24 08:38 Oxygen Delivery Method Room Air 11/02/24 08:38 BMI result Body Mass Index 31.2 Const General: healthy appearing and no acute distress Nutritional Appearance: obese Orientation/consciousness: patient oriented x3 Resp Effort & Inspection: normal respiratory effort, able to speak in complete sentences, no tracheal deviation and symmetric chest movement Auscultation: clear to auscultation bilaterally Cardio Rate: regular rate GI Inspection: Yes normal to inspection, No distended and Yes obesity Palpation (GI): Soft to palpation, not firm, nontender and No hepatosplenomegaly present Auscultation: normal bowel sounds General: Yes no CVA tenderness Back/Spine/Pelvis Back: no CVA tenderness Skin General skin exam: elasticity normal, turgor normal and dry skin Neuro General: patient oriented x3 Psych Appearance: grossly normal Mental Status: mental status grossly normal Assessment & Plan Assessment & Plan (1) Postprandial epigastric pain: Code(s): R10.13 - Epigastric pain (2) GERD (gastroesophageal reflux disease): Code(s): K21.9 - Gastro-esophageal reflux disease without esophagitis Qualifiers: Esophagitis presence: esophagitis presence not specified Qualified Code(s): K21.9 - Gastro-esophageal reflux disease without esophagitis (3) IBS (irritable bowel syndrome): Code(s): K58.9 - Irritable bowel syndrome, unspecified Qualifiers: Irritable bowel syndrome type: with both diarrhea and constipation Qualified Code(s): K58.2 - Mixed irritable bowel syndrome (4) Abdominal pain: Code(s): R10.9 - Unspecified abdominal pain Qualifiers: Abdominal location: upper abdomen, unspecified Qualified Code(s): R10.10 - Upper abdominal pain, unspecified (5) Postprandial abdominal bloating: Code(s): R14.0 - Abdominal distension (gaseous) Plan We will rule out H pylori, celiac disease, chronic pancreatitis. Will check liver panel, vitamin B12, folate and vitamin-D level. Patient will be sent for upper GI series to check for reflux. Will send her for abdominal ultrasound. Patient was encouraged to take simethicone 1 hr before going for ultrasound to decrease the bloating as often gas can obscure pancreas. Will start her on famotidine at bedtime and change PPI to Nexium. We have discussed low FODMAP diet with patient. List of food recommended as well as list of food to avoid given to her. Patient will follow-up in 2-3 months. Patient will call our office if she will have worsening GI symptoms. She is agreeable to this plan and verbalizes understanding of instructions. She was given the opportunity to ask questions and all questions answered. Thank you for allowing me to participate in her care Orders: Orders H Pylori Breath Test Today K21.9 - Gastro-esophageal reflux disease without esophagitis Vitamin D 25-OH (D2 and D3) Today E55.9 - Vitamin D deficiency, unspecified Transglutaminase IgA Today R10.9 - Unspecified abdominal pain TSH reflex Free T4 Today K59.00 - Constipation, unspecified Lipase Today R10.9 - Unspecified abdominal pain Liver Panel Today R74.01 - Elevation of levels of liver transaminase levels Vitamin B12 and Folate Today R19.7 - Diarrhea, unspecified [place] upper GI w Ba Swallow Today K21.9 - Gastro-esophageal reflux disease without esophagitis US abdomen complete Today R10.9 - Unspecified abdominal pain Medications: New famotidine (Pepcid) 20 mg PO BID 60 tabs 1RF K29.70 - Gastritis, unspecified, without bleeding simethicone 125 mg PO BID-QID PRN 30 caps 1RF abdominal distention esomeprazole magnesium (Nexium) 40 mg PO DAILY 30 caps 5RF K21.9 - Gastro-esophageal reflux disease without esophagitis Coding Level of Care Code New Pt Level 4 (56669) Diagnoses Postprandial epigastric pain R10.13 Gastroesophageal reflux disease, unspecified whether esophagitis present K21.9 Esophagitis presence: esophagitis presence not specified Irritable bowel syndrome with both constipation and diarrhea K58.2 Irritable bowel syndrome type: with both diarrhea and constipation Pain of upper abdomen R10.10 Abdominal location: upper abdomen, unspecified Postprandial abdominal bloating R14.0 Time Spent (min) 45 Comment 30 minutes spent with patient and additional 15 minutes spent reviewing her records
--- OUTSIDE RECORDS SUMMARY | 2024-11-02 09:10 | XMS_ITS | Clinical Summary ---
Author Organization [facility] Address [address] [place] [address] Care Team Providers Care Sack Cleaning Hand Name Role Phone Kenia Wiggins Primary Care Provider + [phone] Allergies Active Allergy Reactions Criticality Noted Date Comments Sulfa (Sulfonamide Antibiotics) Other (see comments) 02/19/2022 my family has a reaction to it Medications famotidine (PEPCID) 20 mg tablet Take 1 tablet (20 mg total) by mouth 2 times a day. 60 tablet 02/20/2022 Active omeprazole (PriLOSEC) 20 mg capsule Take 1 capsule (20 mg total) by mouth 2 (two) times a day. 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 Social History Tobacco Use Types Packs/Day Years Used Date Smoking Tobacco: Never Assessed Comments No Sex and Gender Information Value Date Recorded Sex Assigned at Male 02/20/2022 8:17 AM EDT Legal Sex Female 1:33 PM EST Gender Identity Transgender Female 02/20/2022 8: 17 AM EDT Sexual Orientation Bisexual 02/20/2022 8: 17 AM EDT Sexual Orientation Lesbian or [place] 02/20/2022 8: 17 AM EDT Last Filed Vital Signs Vital Sign Reading Time Taken Comments Blood Pressure 172/119 02/19/2022 9:22 PM EDT Pulse 113 02/19/2022 9:22 PM EDT Temperature 36.4 ??C (97.5 ??F) 02/19/2022 9:22 PM ED T Respiratory Rate 18 02/19/2022 9:22 PM EDT Oxygen Saturation 98% 02/19/2022 9:22 PM EDT Inhaled Oxygen Concentration - - Weight 115.7 kg (255 lb) 02/19/2022 9:24 PM EDT Height - - Body Mass Index - - Plan of Treatment Health Maintenance Due Date Last Done Comments Cervical Cancer Screening 1986 HIV Screening 1986 HPV and Pap Smear 1986 Hepatitis C Screening 1986 Pap Smear 1986 Pneumococcal Vaccine: Pediat chepe (0-5 Years) and At-Risk Patients (6-64 Years) (1 of 2 - PCV) 1992 Varicella Vaccines (1 of 2 - 13+ 2-dose series) 1998 Hepatitis B Vaccines (1 of 3 - 19+ 3-dose series) 01/2005 DTaP,Tdap,and Td Vaccines (1 - Tdap) 2008 COVID-19 Vaccine (1 - 2023- season) 2024 Influenza Vaccine (#1) 2024 Alcohol/Substance Use Screening 09/21/2024 Depression Screening and Follow-Up 09/21/2024 Social Drivers of Health Annual Screening 09/21/2024 RSV Vaccine (60+ years old a nd patients) (1 - 1-dose 75+ series) 2061 Insurance BCBS OUT OF STATE PPO Care Teams Sack Cleaning Hand Relationship Specialty Start Date End Date Kenia Wiggins [address] [place] [phone] (work) PCP - General Sports Medicine 10/18/19
--- OUTSIDE RECORDS SUMMARY | 2024-11-02 09:10 | XMS_ITS | Clinical Summary ---
Author Organization [facility] Address [address] [place] [address] Care Team Providers Care Nutritional Yeast Supervisor Name Role Phone Unavailable Primary Care Provider Unavailabl e Allergies Active Allergy Reactions Criticality Noted Date Comments Sulfa Antibiotics 02/11/2019 Family hx of allergy, has never taken Medications busPIRone HCl 10 MG Tab 1 TABLET 3 TIMES DAILY Active buPROPion HCl 75 MG Tab 1 TABLET 3 TIMES DAILY Active Spironolactone 25 MG Tab 1 TABLET EVERY MORNING Active Estradiol 1 MG Tab 1 TABLET DAILY FOR 23 DAYS. OFF 5 DAYS Active Active Problems No known active problems Social History Tobacco Use Types Packs/Day Years Used Date Smoking Tobacco: Never Assessed Comments Unknown Sex and Gender Information Value Date Recorded Sex Assigned at Not on file Legal Sex Female 12:54 PM EDT Gender Identity Not on file Sexual Orientation Not on file Last Filed Vital Signs Vital Sign Reading Time Taken Comments Blood Pressure 136/78 06/20/2019 7:23 PM EDT Pulse 97 06/20/2019 7:23 PM EDT Temperature 38.9 ??C (102.1 ??F) 06/20/2019 7:23 PM E DT Respiratory Rate 16 06/20/2019 7:23 PM EDT Oxygen Saturation 98% 06/20/2019 7:23 PM EDT Inhaled Oxygen Concentration - - Weight - - Height - - Body Mass Index - - Plan of Treatment Health Maintenance Due Date Last Done Comments Hepatitis C Screening 1986 Pap Smear 2002 DTaP/Tdap/Td (1 - Tdap) 2004 Hep B (1 of 3 - 19+ 3-dose series) 2005 COVID-19 Vaccine ( - 2023-2 5 season) 2024 Influenza (#1) 2024 Zoster (Shingrix) (1 of 2) 2036 HPV Vaccine Aged Out No longer eligi ble based on patient's age to complete this topic Hep A Aged Out No longer eligi ble based on patient's age to complete this topic Hib Aged Out No longer eligi ble based on patient's age to complete this topic Meningococcal ACWY Aged Out No longer eligible based on patient's age to complete this topic Pneumococcal Aged Out No longer eligi ble based on patient's age to complete this topic Insurance [employer] FEE FOR SERVICE PPO
--- OUTSIDE RECORDS SUMMARY | 2024-11-02 09:10 | XMS_ITS | Referral Summary ---
Author Organization [facility] Address [address] [place] [address] Care Team Providers Care Continuous Process Tanner Rotary Drum Name Role Phone Kenia Wiggins Primary Care Provider + [phone] Allergies Active Allergy Reactions Criticality Noted Date [...] Mass Index - - Plan of Treatment Not on file Insurance BCBS OUT OF STATE PPO Care Teams Continuous Process Tanner Rotary Drum Relationship Specialty Start Date End Date Kenia Wiggins [address] [place] [phone] PCP - General Sports Medicine 10/18/19
--- OUTSIDE RECORDS SUMMARY | 2024-11-02 09:10 | XMS_ITS | Data Portability ---
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 She was seen as a new patient to me. Thank you so much for having me involved in her cardiology care. Radha is a 39-year-old woman. She was seen for evaluation of autonomic dysfunction. She has had COVID twice, first in 11/2019 and then again in 11/2023. She has had no chest pain. She told me that with COVID she developed respiratory symptoms but since then has noticed an increase pulse while walking up stairs. She has a pulse oximetry and she has not desaturated. She has had no chest pain suggestive of angina. She has had no syncope or presyncope. She does occasionally get lightheaded. She does dose lisinopril in the morning. She has had no sensory, motor or other neurologic symptoms. Her energy level overall has been quite good. A complete review of systems is otherwise unremarkable. Her past medical history is remarkable for asthma and COVID twice as outlined above. CURRENT MEDICAL REGIMEN: Includes: 1. Atorvastatin. 2. Bupropion. 3. Buspirone. 4. Cetirizine. 5. Docusate. 6. Estradiol. 7. Flovent. 8. Hydroxyzine. 9. Lisinopril. 10. Medroxyprogesterone . 11. Omeprazole. 12. Ventolin. SOCIAL HISTORY: Remarkable for the fact that she is single and has no kids. She is unemployed. 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 She drinks occasional alcohol and occasional caffeine. PHYSICAL EXAMINATION: Her physical exam shows her to be 6 feet 3 inches tall and weighs 252 pounds. Her BMI is 31.5. Her blood pressure is 136/80 in the left arm and 134/78 in the right arm. Her pulse is 72 and regular. Her respiratory rate is 12 and nonlabored. Her lung chong were clear to auscultation throughout. Her cardiovascular examination reveals a regular rate and rhythm. There is a normal S1 and a split S2. There are no third or fourth heart sounds identified. There is a grade 2/6 ejection quality murmur at the left parasternal border. There are no diastolic murmurs. Her neck veins are flat with unimpressive venous pulsations and there is no peripheral edema. Her abdominal examination shows no organomegaly, masses or tenderness to palpation. Her skin exam shows no rashes. Her musculoskeletal examination shows no gross changes consistent with arthritis. HEENT exam shows moist mucous membranes. Eye exam shows no xanthelasma and they are nonicteric. Her resting electrocardiogram is within normal limits. IMPRESSION: Radha is a 39-year-old woman with a history of long-standing hypertension on lisinopril. She doses it in the morning and notices that she is somewhat lightheaded and tachycardic when she walks up stairs particularly later in the day. I suspect it may be related to the lisinopril and I have asked her to dose this at night. I did tell her we could switch her at some point to diltiazem and she wanted to hold off until after the evaluation was done. I have asked her to have an echocardiogram, three-day monitor, and stress test to further complete the workup. I have also asked her to have screening blood work including lipid profile, TSH, and CBC. As always, it is a pleasure seeing patients along with you. [email or web address] Not available 05/04/2024 12:25:41 07/07/2024 07/07/2024 Radha is presenti for a follow up appointment Radha continues to have symptomatology compatible with POTS despite her medication changes. She has been experiencing significant fatigue, palpitation with positional changes and exertion, and dyspnea on exertion particuarly when walking uphill. She describes her palpitations as a feeling of her heart racing and pounding. She also notes light headedness with positional changes such as bending at the waist or moving from sitting to standing. She denies syncope, chest pain, or edema. There is no evidence of decompensated heart failure, chest pain suggestive of recurrent angina, or arrhythmia. I have asked her to trial increasing her diltiazem to 120mg twice daily. We also discussed life style changes to aid in the improvement of POTS related symptoms including increasing her salt and fluid intake, valsalva, and carotid massage. She agreed to closely monitor her blood pressure and symptoms at home and to contact the office with any new or worsening symptoms. We reviewed her echocardiogram which was overall stable. Her LVEF was 60%, there was mild mitral regurgitation, mild tricuspid regurgitation, no pericardial effusion and her visualized aortic dimensions were within normal limits. We discussed her exercise stress test which was overall considered low risk. There were no ischemic EKG changes at peak exercise, she had an appropriate heart rate and blood pressure response to exercise, there was no anginal symptoms, and she did have rare PVCs. We reviewed her 3-day monitor which was predominantly sinus rhythm with an average heart rate of 77 bpm, less than 1% ectopy overall. No atrial fibrillation, significant pauses, or malignant arrhythmias recorded. We will see her back in office in 2 months As always, it is a pleasure seeing patients along with you. Not available 07/07/2024 11:17:42 10/04/2024 10/04/2024 Radha is presenti for a follow up appointment Radha is doing well from a cardiology perspective. There is no evidence of decompensated heart failure, chest pain suggestive of recurrent angina, or arrhythmia. Her symptoms have been significantly improved with the diltiazem and she is feeling encouraged by this. She continues to have some degree of light headedness, dizziness, and palpitations however states these are much less intense and less frequent than they were in the past. She does still sometimes experience shortness of breath and chest pain when over exerting but this is not common. She denies syncope or near syncope. I have asked her to continue her current medical regiment and have an updated set of labs prior to her next appointment. She was encouraged to contact the office with any new or worsening symptoms or concerns and she agreed. We will see her back in office in 6 months with labs. As always, it is a pleasure seeing patients along with you. This was a telemed audio-only visit between myself at [facility] and the patient whom was at home. The patient requested and consented to the visit as he/she was unable to come to the office due to the viral illness. 50% of the visit was spent counseling and education the patient on his/her condition. Total time spent with the patient was 5 mins START 1002 [email or web address] Not available 10/04/2024 10:14:17 Plan of Treatment Reminders Order Date Submit Date Provider Last Modified By Organization Details Last Modified Time Details Appointments None recorded. Lab lipid panel, serum [address] [place] [address], [id number], 4 14:04:14 CK (creatine kinase), total, serum [address] [place] [address], [address], 4 14:04:14 ALT (alanine aminotrans ferase), serum or plasma [address], [address], 4 14:04:14 AST/SGOT (aspartate aminotrans ferase), serum or plasma [address], [address], 4 14:04:14 BMP, serum or plasma [address], [address], 4 14:04:14 magnesium, serum or plasma 2023 024 [facility], [address] [place] [address], [address], 4 14:04:14 TSH, serum or plasma 2023 024 [facility], [address] [place] [address], [address], 4 14:04:14 lipid panel, serum 2024 025 [facility], [address] [place] [address], [address], 5 15:32:27 AST/SGOT (aspartate aminotrans ferase), serum or plasma 2024 025 [facility], [address] [place] [address], [address], 5 10:06:21 ALT (alanine aminotrans ferase), serum or plasma 2024 025 [facility], [address] [place] [address], [address], 5 10:06:21 CK (creatine kinase), total, serum 2024 025 [facility], [address] [place] [address], [address], 5 10:06:21 BMP, serum or plasma 2024 025 [facility], [address] [place] [address], [address], 5 10:06:21 Referral None recorded. Procedures None recorded. Surgeries None recorded. Imaging electrocar diogram 2023 024 [facility] In-Office Order, Internal Use Only DO Not Attach Compendium DO Not Attach Compendium, Do Not Delete/merge, [id number] 14:04:14 compliance monitor 2023 [facility] [employer], [address] [place] [address], [place] [address], [place], [address], 4 10:45:12 US, echocardio gram, transthora cic, complete, w/ color flow - 2D Color-flow and Doppler with contrast if clinically indicated according to protocol. 2023 [facility] Not available 15:02:48 exercise stress test 2023 [facility] (Central Scheduling For [facility]), [address] [place] [address], [id number], 12:11:15 electrocar diogram 2023 [facility] In-Office Order, Internal Use Only DO Not Attach Compendium DO Not Attach Compendium, Do Not Delete/merge, [id number] 11:21:19 Medication Orders diltiazem ER 120 mg capsule,24 hr,extende d release 2023 [id number], [address] [place], [address], 11:13:15 Patient TargetsNo targets recorded. Patient Instructions Encounter Date Encounter Id Patient Instructions Last Modified By Organization Details Last Modified Time 05/04/2024 [id number] palpitations: care instructions [email or web address] Not available 05/04/2024 14:04:14 high blood pressure: care instructions [email or web address] Not available 05/04/2024 14:04:14 learning about high blood pressure [email or web address] Not available 05/04/2024 14:04:14 shortness of breath: care instructions [email or web address] Not available 05/04/2024 14:04:14 06/02/2024 [id number] palpitations: care instructions [email or web address] Not available 06/02/2024 17:14:23 PLACED A 3 DAY ZIO XT MONITOR FOR PALPITATIONS. ALL QUESTIONS ANSWERED. [email or web address] Not available 06/02/2024 14:04:40 10/04/2024 [id number] high blood pressure: care instructions Not available 10/04/2024 10:05:59 learning about high blood pressure Not available 10/04/2024 10:05:59 Reason for Referral None Reported. Results Created Date Observation Date Name Description Value Unit Range Abnormal Flag Note LastModifiedBy Organization Detail LastModifiedTime 05/04/20 elect rocar diogr am No observ ation record ed. In-Office Order Internal Use Only DO Not Attach Compendium DO Not Attach Compendium, Do Not Delete/merge, [id number] 05/04/2024 09:02:55 05/04/2005/04/2024 elect rocar diogr am No observ ation record ed. BARCODE Not Available 2023 12:33:22 06/09/20 24 06/09/2024 cardi ac monit or No observ ation record ed. [facility] [employer] [address] [place] [address], [id number], 07/01/2024 15:45:51 06/20/20 24 06/13/2024 exerc polly molina s test No observ ation record ed. [facility] (Central Scheduling For Imaging [facility]) [address] [place] [address], [id number], 06/20/2024 14:49:24 06/29/2006/22/2024 US, echoc ardio gram, trans thora cic, compl ete, w/ color flow No observ ation record ed. [email or web address] Not Available 2023 15:02:58 07/07/20 elect rocar diogr am No observ ation record ed. [email or web address] In-Office Order Internal Use Only DO Not Attach Compendium DO Not Attach Compendium, Do Not Delete/merge, [id number] 07/07/2024 09:53:38 07/07/20 24 07/07/2024 elect rocar diogr am No observ ation record ed. [facility] Not Available 2023 16:51:27 07/11/2006/22/2024 US, echoc ardio gram, trans thora cic, compl ete, w/ color flow No observ ation record ed. [email or web address] Not Available 2023 12:02:41 08/14/20 24 06/13/2024 exerc ise stres s test No observ ation record ed. [facility] (Central Scheduling For Imaging And Labs) [address] [place] [address], [id number], 08/14/2024 09:24:21 Result Notes None recorded. Problems Name Problem SNOMED Code Status Onset Date Resolution Date Notes Provider Name and Address Organization Details Recorded Time Mixed hyperlipidem ia 411310309 Active 2023 Jacque gregory [facility] 11:43:56 Benign essential hypertension 2194094 Active 2023 Jacque gregory [facility] 4 11:43:57 Irritable bowel syndrome 17692518 Active 2023 Yelitza gregory [facility] 15:01:12 Chronic keyb-VVXII-7 9 syndrome 3449883933 Active 2023 Yelitza gregory [facility] 4 15:01:12 Bipolar disorder 14639771 Active 2023 Yelitza gregory [facility] 15:01:12 Asthma 941244237 Active 2023 Yelitza gregory [facility] 4 15:01:12 Generalized anxiety disorder 66108679 Active 2023 Yelitza Estr[facility] 15:01:12 Osteoarthrit is of knee 638413585 Active 2023 Yelitza gregory [facility] 4 15:01:12 Low back pain 835889779 [facility] 4 15:01:13 Attention deficit hyperactivit y disorder, predominantl y inattentive type 07544098 [facility] 4 15:01:13 Autism spectrum disorder 41362041 [facility] 4 15:01:13 Postural orthostatic tachycardia syndrome 591837547 [facility] 4 15:01:13 Migraine 46795973 [facility] 4 15:01:13 Posttraumati c stress disorder 80082286 [facility] 4 15:01:13 Essential hypertension 10386293 [facility] 4 15:01:13 Dyslexia 37164721 [facility] 4 15:01:13 Hypermobilit y of joint 543146286 Active [address] [facility] 4 15:01:13 Hiatal hernia 40911679 [facility] 4 15:01:13 Gender dysphoria 09345511 Active [address] [facility] 15:01:13 Problem Notes None recorded. Procedures Surgical History Date Name Laterality Status Provider Name and Address Organization Details Recorded Time Gallbladder Surgery completed [facility] 05/04/2024 09:02:35 Other Surgeries completed [facility] 05/04/2024 09:02:35 Pyloric Stenosis Repair completed Irena Wilkerson [facility] 05/04/2024 09:18:48 Imaging Results Imaging Date Name Status LastModified by Organization Details LastModified Time 05/04/2024 electrocardiogram completed In-Offi ce Order Internal Use Only DO Not Attach Compendium DO Not Attach Compendium, Do Not Delete/merge, [id number] 05/04/2024 09:02:55 05/04/2024 electrocardiogram completed [facility] Informa tion not available 05/04/2024 12:33:22 06/09/2024 compliance monitor completed [email or web address] [employer] [address] [place] [address], [address], 07/01/2024 15:45:51 06/13/2024 exercise stress test completed [facility] (Central Scheduling For [facility]) [address] [place] [address], [id number], 06/20/2024 14:49:24 06/22/2024 US, echocardiogram, transthoracic, complete, w/ color flow completed Information not available 06/29/2024 15:02:58 07/07/2024 electrocardiogram completed [email or web address] In-Offi ce Order Internal Use Only DO Not Attach Compendium DO Not Attach Compendium, Do Not Delete/merge, [id number] 07/07/2024 09:53:38 07/07/2024 electrocardiogram completed [facility] Informa tion not available 07/07/2024 16:51:27 06/22/2024 US, echocardiogram, transthoracic, complete, w/ color flow completed [email or web address] Information not available 07/11/2024 12:02:41 06/13/2024 exercise stress test completed gharding [facility] (Central Scheduling For Imaging [facility] Labs) [address] [place] [address], [id number], 08/14/2024 09:24:21 Procedure Notes None recorded. Medical Equipment None Reported. Allergies Allergen ID Allergen Name Allergen Category Reaction Reaction Severity Criticality Documentation Date Start Date Code Code System Note Provider Name and Address Organization Details Recorded Time 573640 Substance with sulfonami de structure and antibacte rial mechanism of action (substanc e) medicatio n other Not available Not available 05/04/2024 74289 8003 SNOMED Irena gregory STELLA [facility] 4 09:01:10 539389 house dust allergeni c extract environme nt,medica tion respirato ry distress Not available Not available 05/04/2024 89280 9 RxNorm Irena gregory STELLA [facility] 4 09:01:10 Medications Name Sig Start Date Stop Date Status Note LastModified by Organization Details LastModified Time d3 super strength 50 mcg (1999 ut) caps active Not Available Not Available Not Available methocarb tonya 500 mg tablet TAKE 2 TABLETS BY MOUTH AT BEDTIME NEEDED FOR MUSCLE SPASM FOR UP TO 10 DAYS 05/04 completed Not Available Not Available Not Available cetirizin e 10 mg tablet TAKE 1 TABLET BY MOUTH EVERY DAY active Not Available Not Available No t Available atorvasta tin 10 mg tablet TAKE 1 TABLET BY MOUTH EVERYDAY AT BEDTIME active Not Available Not Available No t Available medroxypr ogesteron e 2.5 mg tablet TAKE 1 TABLET BY MOUTH EVERY DAY active Not Available Not Available No t Available lisinopri l 20 mg tablet TAKE 1 TABLET BY MOUTH EVERY DAY @ NIGHT 05/30 completed Not Available Not Available Not Available prednison e 20 mg tablet TAKE 2 TABLETS EVERY DAY BY ORAL ROUTE IN THE MORNING FOR 5 DAYS, FOR LOW BACK PAIN/MUS KASSANDRA SPASM. 05/04 completed Not Available Not Available Not Available hydroxyzi ne HCl 50 mg tablet TAKE 1 TABLET BY MOUTH EVERY DAY PRN active Not Available Not Available No t Available diltiazem ER 120 mg capsule,2 4 hr,extend ed release Take 1 capsule twice a day by oral route. 2023 active 08/17/24 : only started increase dose bid Not Available Not Available Not Available Flovent 110 mcg/actua tion aerosol inhaler Inhale 1 puff twice a day by inhalati on route. 07/07 completed Not Available Not Available Not Available docusate sodium 100 mg capsule TAKE 1 CAPSULE BY MOUTH EVERY DAY IN THE MORNING AND IN THE EVENING active Not Available Not Available No t Available omeprazol e 20 mg capsule,d elayed release TAKE 1 CAPSULE BY MOUTH EVERY DAY active Not Available Not Available No t Available estradiol 2 mg tablet TAKE 3 TABLETS BY MOUTH EVERY DAY active Not Available Not Available No t Available spironola ctone 50 mg tablet Take 1 tablet every day by oral route. active Not Available Not Available No t Available diazepam 5 mg tablet TAKE 1 TABLET EVERY 6 (SIX) HOURS NEEDED (MUSCLE SPASM/RE LAXATION ) 05/04 completed Not Available Not Available Not Available finasteri de 1 mg tablet TAKE 1 TABLET BY MOUTH EVERY DAY 05/04 completed Not Available Not Available Not Available Ventolin HFA 90 mcg/actua tion aerosol inhaler INHALE 2 PUFFS EVERY 4 HOURS BY INHALATI ON ROUTE. 09/09 completed Not Available Not Available Not Available buspirone 15 mg tablet TAKE 1 TABLET BY MOUTH TWICE A DAY active Not Available Not Available No t Available bupropion HCl XL 300 mg 24 hr tablet, extended release TAKE 1 TABLET BY MOUTH EVERY DAY active Not Available Not Available No t Available escitalop efrain 5 mg tablet TAKE 1 TABLET BY MOUTH EVERY DAY 05/04 completed Not Available Not Available Not Available Symbicort unsure active Not Available Not Laura ilable Not Available Vitamin D3 50 mcg (2,000 unit) capsule TAKE 1 CAPSULE BY MOUTH EVERY DAY 05/04 completed Not Available Not Available Not Available bupropion HCl XL 450 mg 24 hr tablet, extended release TAKE 1 TABLET BY MOUTH EVERY DAY 05/04 completed Not Available Not Available Not Available Fish Oil 1,000 mg (120 mg-180 mg) capsule Take by oral route. active Not Available Not Available No t Available Lagevrio 200 mg capsule (EUA) TAKE 4 CAPSULES EVERY 12 HRS HRS X 5 DAYS, WITH OR WITHOUT FOOD 05/04 completed Not Available Not Available Not Available Vitals Date Recorded Body weight Body mass index (BMI) Body height Oxygen saturation Oxygen saturation in Arterial blood by Pulse oximetry Heart rate Systolic blood pressure Diastolic blood pressure Systolic blood pressure Diastolic blood pressure Provider Name and Address Organization Details Last Updated DateTime 4 859784. 28 g 31.5 kg/m2 190.5 cm 98 % 98 % 72 /min 136 mm[Hg] 80 mm[Hg] 134 mm[Hg] 78 mm[Hg] Irena Wilkerson [facility]. 09:23:37 Date Recorded Body height Body mass index (BMI) Body weight Heart rate Systolic blood pressure Diastolic blood pressure Provider Name and Address Organization Details Last Updated DateTime 4 190.5 cm 32.7 kg/m2 442041. 2 g 68 /min 110 mm[Hg] 60 mm[Hg] Dora Amanda [facility]. 4 10:03:50 Date Recorded Body height Provider Name an d Address Organization Details Last Updated DateTime 10/04/2024 190.5 cm Shira Kumar [facility] 10/04/2024 09:26:23 Social History Question Answer Notes LastModified by Organizat ion Details LastModified Time Tobacco Smoking Status Never Smoker Irena gregory [facility]. 05/04/2024 09:02:32 Do You Have An Advance Directive? No Information not available 05/04/2024 What Is Your Level Of Alcohol Consumption? Occasional Information not available 05/04/2024 Are You Blind Or Do You Have Difficulty Seeing? No Information not available 05/04/2024 Is Blood Transfusion Acceptable In An Emergency? Yes Information not available 05/04/2024 What Is Your Level Of Caffeine Consumption? Heavy Information not available 05/04/2024 Are You Currently Employed? No Not Currently Information not available 05/04/2024 Are You Deaf Or Do You Have Serious Difficulty Hearing? No Information not available 05/04/2024 What Type Of Diet Are You Following? REGULAR Information not available 05/04/2024 Which Of Your Hands Is Dominant? Right Information not available 05/04/2024 What Was The Date Of Your Most Recent Tobacco Screening? 10/04/2024 [email or web address] Information not available 10/04/2024 Have You Ever Been Counseled For Unhealthy Alcohol Use? No Information not available 05/04/2024 Do You Have Any Pets? Yes Information not available 05/04/2024 What Is Your Relationship Status? Single Information not available 09/15/2024 Do You Feel Stressed (tense, Restless, Nervous, Or Anxious, Or Unable To Sleep At Night)? [id number] Information not available 05/04/2024 Do You Use Any Illicit Or Recreational Drugs? No Information not available 05/04/2024 Has Tobacco Cessation Counseling Been Provided? No Information not available 05/04/2024 Do You Or Have You Ever Used Any Other Forms Of Tobacco Or Nicotine? No Information not available 05/04/2024 How Many Days In The Past Year Have You Consumed 4 Or More Drinks? 2 Information not available 05/04/2024 Sex: Unknown Functional Status Question Answer Note LastModified by Organizat ion Details LastModified Time Are you able to care for yourself? No Information not available 05/04/2024 What is your exercise level? Occasional Information not available 05/04/2024 Mental Status None recorded. Family History Relationship Description Onset Age of this Age Resolved Age Notes LastModified by Organization Details LastModified Time Mother Depressive disorder Not available 05/04 09:01:14 Mother Hypertensive disorder Not available 05/04 09:01:14 Mother Hyperlipidem ia Not available 05/04 09:01:14 Mother Kidney disease Not available 05/04 09:01:15 Maternal Grandmother Depressive disorder Not available 05/04 09:01:15 Brother Depressive disorder Not available 05/04 09:01:15 Brother Hypertensive disorder Not available 05/04 09:01:15 Brother Kidney disease Not available 05/04 09:01:15 Maternal Grandfather Family history of malignant neoplasm Not available 05/04 09:01:15 Medical History Condition Response Seizure Disorder N Eye Problems (Glaucoma, Retinopathy, Mac ular Degeneration) N High Blood Pressure (Hypertension) Y AFib (Atrial Fibrillation) N Depression Y Kidney Disease/Stones N High Cholesterol (Hyperlipidemia) Y Sickle Cell Anemia N CHF (Congestive Heart Failure) N Memory Loss (Dementia) N Mental Illness (Bi-Polar Disorder, Schiz ophrenia) Y Hearing Loss N Heart Attack (Myocardial Infarction) N Cancer N Liver Disease/Hepatitis N Carotid Disease N Implantable Pacemaker/Defibrillator/AICD N Stroke/TIA N Aortic Aneurysm N Arthritis Rheumatoid Y Bleeding Problems N Syncope or Passing Out Y HIV N Diabetes (Insulin Dependent) N Gallbladder Disease/Stones Y Anxiety Y Edema (Swelling) N Anesthetic Complication N Substance Abuse (Alcohol, Drug) N Gastrointestinal Disease (IBS, Gastritis , Ulcer, Acid Reflux) Y Anemia N Blood Clot (Deep Vein Thrombosis) N Neuropathy (Numbness, Pain, Tingling) Y Chronic Venous Insufficiency N Pulmonary Embolism (Blood Clot in the La[place] ng) N Diabetes (Non-Insulin Dependent) N Rheumatic Fever N Claustrophobic N Tuberculosis N AIDS N Asthma Y Developmental Disorder N COPD (Chronic Obstructive Pulmonary Dise ase) N Sleep Apnea N Other Disease(s): Y MRSA (Antimicrobial Resistance) N CAD (Coronary Artery Disease) N Thyroid Disease/Disorder N Gynecological HistoryNo gynecological history recorded. Obstetrics History GPAL:G 0 P 0 0 0 0 Past Encounters Encounter ID Performer Location Encounter Start Date Encounter Closed Date Diagnosis/Indication Diagnosis SNOMED-CT Code Diagnosis ICD10 Code Diagnosis Note [id number] Davi Bangura MD [facility] [address] [address] 05/04/2024 08:58:40 05/04/2024 10:24:40 Palpitations 46437967 R00.2 Dyspnea 838940129 R06.02 Benign ess ential hypertension 8393519 I10 Mixed hyperlipidemia 267 293188 E78.2 [id number] Davi Bangura MD [facility] [address], [address] [place] [address] 06/02/2024 13:41:22 06/02/2024 14:39:14 Palpitations 65393708 R00.2 [id number] Lauren Diaz PA-C [facility] [address] [address] 07/07/2024 09:49:53 07/07/2024 10:59:34 Benign essential hypertension 2378039 I10 INCREASE diltiazem to 120mg twice daily Chronic po st-COVID-19 syndrome 3789018663 U09.9 Mixed hyperlipidemia 267 606961 E78.2 Postural o rthostatic tachycardia syndrome 423090455 G90.A Recommend daily fluid intake to 3L of fluids dailyRecom mend daily salt intake to 3.2-4.8g dailyRecom mend wearing compressio n tights daily as tolerated Palpitations 44003174 R0 0.2 INCREASE diltiazem to 120mg twice daily Postural dizziness 60776 7008 R42 Fatigue 56750974 R53.83 [id number] Lauren Diaz PA-C [facility] [address] [facility] [address] [place] [address] 10/04/2024 09:16:58 10/04/2024 11:52:02 Postural orthostatic tachycardia syndrome 267471302 G90.A Mixed hyperlipidemia 267 724304 E78.2 Benign ess ential hypertension 1111392 I[address]-COVID-19 syndrome 3585860765 U09.9 Palpitations 21267735 R0 0.2 Lightheadedness 41316687 8 R42 Dyspnea on exertion 6084 5006 R06.09 Chest pain 99739183 R07. 9 Health Concerns Section Related Observation LastModified by Organization Detai ls LastModified Time None Recorded Concern Status LastModified by Organization Details LastModified Time None Recorded Advance Directives Directive N: Payers Encounter Date Sequence Insurance Name Policy Number Policy Park Covered Member ID Park Member ID Guarantor Name 05/04/2024 1 [facility] Radhamaria teresa Kirby [id number] Radhamaria teresa Kirby 06/02/2024 1 [facility] Radha Kirby [id number] Radhamaria teresa Kirby 07/07/2024 1 [facility] Radhamaria teresa Kirby [id number] Radhamaria teresa Kirby 10/04/2024 1 [facility] Radhamaria teresa Kirby [id number] Radhamaria teresa Kirby Notes Date Note Type Note Provider Name and Address Organization Details Recorded Time 07/07/2024 text/html Radha Kirby is presenting to the office for a follow up appointment. She has a past medical history of POTS, Hypertension, asthma. Her last appointment in our office was on 05/04/[address] Bangura as a new patient. At this visit they discussed that she was somewhat light headed and tachycardic particularly when walking up the stairs later in the day. She was asked to have an exercise stress test a monitor and some lab work. It was discussed that her light headedness may be related to lisinopril and she was asked to instead dose it at night and that at some point they could switch her to diltiazem however my preferred to hold off on medication changes until her evaluation was done. On 05/30/2024 mild was switched to diltiazem [address] of her lisinopril. On 06/17/2024 the patient reached out to the office stating that after switching her medications she continued to have racing heart with positional changes and light headedness. She felt that this may be contributing to her overall severe fatigue and long COVID specialist suggested that better heart rate control may help with her symptoms. She was scheduled to follow-up with us in office today Today, Radha feels overall well. She continues to have significant fatigue. Her palpitations have not improved with the switch to diltiazem and she still has light headedness. She notes this with postional changes as well. She also has intermittentdyspnea on exertion particuarly on hills. Denies chest pain, headache, dizziness, light headedness, syncope, near syncope, changes in vision, jaw pain, arm pain on exertion, numbness, weakness, orthopnea or sleeping with more pillows at night, lower extremity edema. ----US, echocardiogram, transthoracic, complete, w/ color flow [id number] stress test [id number] xt/zio monitor group home continuous ambulatory compliance monitor [id number] 03/01/24 LIBERTAD Santana-Tamara [address] [place] [address], [phone], [facility] - [facility] Services [facility]. 07/07/2024 11:18:19 10/04/2024 text/html Radha Kirby is presenting to the office for a telemedicine follow up appointment. She has a past medical history of HTN, HLD, chronic covid syndrome, POTS. Her last appointment in our office was on 07/07/24 with il. At this visit we discussed that Radha continued to have symptomatology compatible with POTS despite her medication changes. She had been experiencing significant fatigue, palpitation with positional changes and exertion, and dyspnea on exertion particuarly when walking uphill. She described her palpitations as a feeling of her heart racing and pounding. She also noted light headedness with positional changes such as bending at the waist or moving from sitting to standing. I asked her to trial increasing her diltiazem to 120mg twice daily. We also discussed life style changes to aid in the improvement of POTS related symptoms including increasing her salt and fluid intake, valsalva, and carotid massage. Today, Radha feels new meds have been helping her. She is less dizzy, her heart is not racing as often, and it is easer for her to go up and down stairs and bending over. She does still have these symptoms to some degree but this is significantly reduced. Occasional CP and SOL if over exerting but not often. Denies headache, syncope, near syncope, changes in vision, jaw pain, arm pain on exertion, numbness, weakness, orthopnea or sleeping with more pillows at night, lower extremity edema. ----Lipid (03/01/24)Stress (06/13/24)Echo (06/22/24)Monitor (06/09/24) LIBERTAD Santana-Tamara [address] [place] [address], [phone], [facility] - [facility]. 10/04/2024 10:16:52 OBGyn Episode No OBEpisode recorded.
--- OUTSIDE RECORDS SUMMARY | 2024-11-02 09:10 | XMS_ITS | Continuity of Care Document ---
Author Organization [facility], [facility] Address [address] [facility] [address] [place] [address] Care Team Providers Care Mill Controller Name Role Phone NEELIMA VÁZQUEZ Primary Care Provider CHERRI ISBELL Vmware Administrator Assessment Encounter Date Assessment Date Assessment LastModified by Organization Details LastModified Time 10/04/2024 10/04/2024 Radha is presenting for a follow up appointment Radha is [...] the patient was 5 mins START 1002 [id number] Not available 10/04/2024 10:14:17 Plan of Treatment Reminders Order Date Submit Date Provider Last Modified By Organization Details Last Modified Time Details Appointments None recorded . Lab lipid panel, serum 025 [facility], [address] [place] [address], [address], 5 15:32:27 AST/SGOT (asparta te aminotra nsferase ), serum or plasma 025 [facility], [address] [place] [address], [address], 5 10:06:21 ALT (alanine aminotra nsferase ), serum or plasma 025 025 [facility], [address] [place] [address], [address], 5 10:06:21 CK (creatin e kinase), total, serum 025 [facility], [address] [place] [address], [address], 5 10:06:21 BMP, serum or plasma 025 [facility], [address] [place] [address], [address], 5 10:06:21 Referral None recorded . Procedures None recorded . Surgeries None recorded . Imaging None recorded . Medication Orders None recorded . Patient TargetsNo targets recorded. Patient Instructions Encounter Date Encounter Id Patient Instructions Last Modified By Organization Details Last Modified Time 10/04/2024 [id number] high blood pressure: care instructions Not available 10/04/2024 10:05:59 learning about high blood pressure Not available 10/04/2024 10:05:59 Reason for Referral None Reported. Problems Name Problem SNOMED Code Status Onset Date Resolution Date Notes Provider Name and Address Organization Details Recorded Time Mixed hyperlipidem ia 268656854 Active 2023 Jacque David bri [facility] 4 11:43:56 Benign essential hypertension 1889660 Active 2023 Jacque David bri [facility] 4 11:43:57 Irritable bowel syndrome 90213902 Active 2023 Yelitza Natalie gregory [facility] 4 15:01:12 Chronic ciud-ACKDY-0 9 syndrome 2084855227 Active 2023 Yelitza Estrada bri [facility] 4 15:01:12 Bipolar disorder 88533305 Active 2023 Yelitza Estrada bri [facility] 4 15:01:12 Asthma 422109812 Active 2023 Yelitza Estrada bri [facility] 4 15:01:12 Generalized anxiety disorder 66033389 [facility] 15:01:12 Osteoarthrit is of knee 471759338 Active 2023 Yelitzatiffanie gregory [facility] 4 15:01:12 Low back pain 535156816 Active 2023 Yelitza Natalie gregory [facility] 4 15:01:13 Attention deficit hyperactivit y disorder, predominantl y inattentive type 00683306 Active 2023 Yelitza Natalie gregory [facility] 4 15:01:13 Autism spectrum disorder 69508844 Active 2023 Yelitza Natalie gregory [facility] 4 15:01:13 Postural orthostatic tachycardia syndrome 887070720 Active 2023 Yelitza Estrada bri [facility] 15:01:13 Migraine 16900431 Active 2023 Yelitza gregory [facility] 15:01:13 Posttraumati c stress disorder 88719467 Active 2023 Yelitza gregory [facility] 15:01:13 Essential hypertension 46694634 Active 2023 Yelitza gregory [facility] [email or web address]] 15:01:13 Dyslexia 34351792 [facility]23 [facility] Hypermobilit y of joint 723679203 [facility] Hiatal hernia 73474540 Active 2023 Yelitza Estrada [facility] 15:01:13 Gender dysphoria 66585323 Active 2023 Yelitza Estrada [facility] 15:01:13 Problem Notes None recorded. Procedures Surgical History Date Name Laterality Status Provider Name and Address Organization Details Recorded Time Gallbladder Surgery completed [facility] 05/04/2024 09:02:35 Other Surgeries completed [facility] 05/04/2024 09:02:35 Pyloric Stenosis Repair completed [facility] 05/04/2024 09:18:48 Imaging Results None recorded. Procedure Notes None recorded. Medical Equipment None Reported. Allergies Allergen ID Allergen Name Allergen Category Reaction Reaction Severity Criticality Documentation Date Start Date Code Code System Note Provider Name and Address Organization Details Recorded Time 432140 Substance with sulfonami de structure and antibacte rial mechanism of action (substanc e) medicatio n other Not available Not available 05/04/2024 93778 8003 SNOMED [facility] 09:01:10 480472 house dust allergeni c extract environme nt,medica tion respirato ry distress Not available Not available 05/04/2024 45069 9 RxNorm Irena [facility] [place] [facility] Physician [facility]. 4 09:01:10 Medications Name Sig Start Date [...] Available Not Available Vitals Date Recorded Body height Provider Name an d Address Organization Details Last Updated DateTime 10/04/2024 190.5 cm Shira Kumar [facility] 10/04/2024 09:26:23 Social History Question Answer Notes LastModified by Organizat ion Details LastModified Time Tobacco Smoking Status Never Smoker Irena gregory [facility] [[email or web address] 05/04/2024 09:02:32 Do You Have An Advance [...] 05/04/2024 What Is Your Relationship Status? Single gharding Information not available 09/15/2024 Do You Feel Stressed (tense, Restless, Nervous, Or Anxious, Or Unable To Sleep At Night)? [id number] Information not available 05/04/2024 Do You Use [...] Not available 05/04 09:01:14 Mother Kidney disease [email or web address] Not available 05/04 09:01:15 Maternal Grandmother Depressive disorder Not available 05/04 09:01:15 Brother Depressive disorder ood Not available 05/04 09:01:15 Brother Hypertensive disorder [email or web address] Not available 05/04 09:01:15 Brother Kidney disease ood Not available 05/04 09:01:15 Maternal Grandfather Family history of malignant neoplasm ood Not available 05/04 09:01:15 Medical History Condition [...] SNOMED-CT Code Diagnosis ICD10 Code Diagnosis Note [id number] Lauren Diaz PA-C [facility] [address] [facility] [address] [place] [address] 10/04/2024 09:16:58 10/04/2024 11:52:02 Postural orthostatic tachycardia syndrome 617109967 G90.A Mixed hyperlipidemia 267 104353 E78.2 Benign ess ential hypertension 7371991 I10 [address]-COVID-19 syndrome 2035392003 U09.9 Palpitations 58372105 R0 0.2 Lightheadedness 93294111 8 R42 Dyspnea on exertion 6084 5006 R06.09 Chest pain 42914587 R07. 9 Health Concerns Section Related Observation LastModified by Organization Detai ls LastModified Time None Recorded Concern Status LastModified by Organization Details LastModified Time None Recorded Payers Encounter Date Sequence Insurance Name Policy Number Policy Park Covered Member ID Park Member ID Guarantor Name 10/04/2024 1 [facility] Radha Kirby [id number] Radha Kirby Notes Date Note Type Note Provider Name and Address Organization Details Recorded Time 10/04/2024 text/html Radha Kirby is presenting to the office for a telemedicine follow up appointment. She has a past medical history of HTN, HLD, chronic covid syndrome, POTS. Her last appointment in our office was on 07/07/24 with me. At this visit we discussed that Radha [...] extremity edema. ----Lipid (03/01/24)Stress (06/13/24)Echo (06/22/24)Monitor (06/09/24) Lauren Diaz PA-C [address] [place] [address], [phone], [facility] - [facility]. 10/04/2024 10:16:52 OBGyn Episode No OBEpisode recorded.
== END 2024-11-02 09:28 | disposition home or self-care (01) ==
PROVIDERS: PCP Family Medicine; Visit Provider Nurse Practitioner Family
DX: R10.13 Epigastric pain (principal); K21.9 Gastro-esophageal reflux disease without esophagitis; K58.2 Mixed irritable bowel syndrome; R10.10 Upper abdominal pain, unspecified; R14.0 Abdominal distension (gaseous)
CPT/HCPCS: 99204

== ENCOUNTER 2024-11-02 08:30 | Outpatient (REF) | payer OTHER, SELFPAY ==
--- OUTSIDE RECORDS SUMMARY | 2024-11-02 10:55 | XMS_ITS | Clinical Summary ---
Author Organization [facility] Address [address] [place] [address] Care Team Providers Care Short Story Writer Name Role Phone Kenia Wiggins Primary Care Provider + [phone] Allergies Active Allergy Reactions Criticality Noted Date [...] [employer]BS OUT OF STATE PPO Care Teams Short Story Writer Relationship Specialty Start Date End Date Kenia Wiggins [address] [place] [phone] (work) PCP - General Sports Medicine 10/18/19
--- OUTSIDE RECORDS SUMMARY | 2024-11-02 10:55 | XMS_ITS | Referral Summary ---
Author Organization [facility] Address [address] [place] [address] Care Team Providers Care Clerical And Administrative Workers Name Role Phone Kenia Wiggins Primary Care Provider + [phone] Allergies Active Allergy Reactions Criticality Noted Date [...] [employer] OUT OF STATE PPO Care Teams Clerical And Administrative Workers Relationship Specialty Start Date End Date Kenia Wiggins [address] [place] [phone] PCP - General Sports Medicine 10/18/19
--- OUTSIDE RECORDS SUMMARY | 2024-11-02 10:55 | XMS_ITS | Clinical Summary ---
Author Organization [facility] Address [address] [place] [address] Care Team Providers Care Engineer Specialist Name Role Phone Unavailable Primary Care Provider [...]
[2024-11-02 11:15] LABS: Alanine Aminotransferase 22 U/L (0-31); Albumin Level 4.3 g/dL (3.5-5.0); Alkaline Phosphatase 82 U/L (39-117); Aspartate Amino Transferase 16 U/L (5-31); Bilirubin Direct 0.1 mg/dL (0.0-0.5); Bilirubin Total 0.3 mg/dL (0.0-1.0); Lipase 22 U/L (8-78); Total Protein 7.3 g/dL (6.5-8.0)
[2024-11-02 11:39] LABS: TSH reflex Free T4 2.51 uIU/mL (0.32-4.0)
[2024-11-02 11:42] LABS: Vitamin B12 193 pg/mL (200-900)
[2024-11-03 21:28] LABS: Transglutaminase IgA <1.0 U/mL
[2024-11-05 18:58] LABS: Vitamin D 25-OH, D2 <4 ng/mL; Vitamin D 25-OH, D3 42 ng/mL; Vitamin D 25-OH, Total 42 ng/mL (30-100)
== END 2024-11-02 08:31 | disposition home or self-care (01) ==
LOC: HO.LAB 08:30
PROVIDERS: PCP Family Medicine; Visit Provider Nurse Practitioner Family
DX: E55.9 Vitamin D deficiency, unspecified (principal); R10.9 Unspecified abdominal pain; K59.00 Constipation, unspecified; R74.01 Elevation of levels of liver transaminase levels; R19.7 Diarrhea, unspecified
CPT/HCPCS: 36415; 80076; 82306; 82607; 82746; 83690; 84443; 86364

== ENCOUNTER 2024-11-25 08:32 | Outpatient (REF) | payer OTHER, SELFPAY ==
--- NOTE | ~2024-11-25 | US_ITS ---
EXAMINATION: US ABDOMEN COMPLETE CLINICAL INFORMATION: Abdominal pain. COMPARISON: None available. TECHNIQUE: Real-time imaging of the abdominal viscera. FINDINGS: PANCREAS: Visualized portions are unremarkable. ABDOMINAL AORTA: The proximal, mid, and distal segments are normal in caliber. INFERIOR VENA CAVA: Visualized portions are normal. LIVER: The liver is normal in size. The liver contour is normal. Parenchymal echogenicity is normal there is anechoic cyst left hepatic lobe measuring 0.7 x 0.8 x 0.7 cm. . There is no intrahepatic biliary duct dilatation seen. GALLBLADDER: The gallbladder has been surgically removed. COMMON BILE DUCT: Normal in caliber measuring 0.49 cm in diameter. RIGHT KIDNEY: No hydronephrosis. No renal calculi or focal parenchymal lesions. The kidney measures 11.1 cm in maximum dimension. LEFT KIDNEY: No hydronephrosis. No renal calculi or focal parenchymal lesions. The kidney measures 10.6 cm in maximum dimension. SPLEEN: The spleen measures 11.6 cm in maximum dimension. FREE FLUID: None. US/US abdomen complete IMPRESSION: Left hepatic lobe simple cyst. Rest of the abdominal ultrasound is unremarkable. Electronically signed by: Natanael Peña MD 11/25/2024 09:31 AM [facility]
--- OUTSIDE RECORDS SUMMARY | 2024-11-25 09:01 | XMS_ITS | Clinical Summary ---
Author Organization [facility] Address [address] [place] [address] Care Team Providers Care Photographic Artist Name Role Phone Kenia Wiggins Primary Care Provider + [phone] Allergies Active Allergy Reactions Criticality Noted Date [...] Hepatitis C Screening 1986 Pap Smear 1986 Varicella Vaccines (1 of 2 - 13+ 2-dose series) 1998 Hepatitis B Vaccines (1 of 3 - 19+ 3-dose series) 01/2005 Pneumococcal Vaccine: Pediat chepe (0-5 Years) and At-Risk Patients (6-50 Years) (1 of 2 - PCV) 2005 DTaP,Tdap,and Td Vaccines (1 - Tdap) 2008 COVID-19 Vaccine (1 - 2023- season) 2024 Influenza Vaccine (#1) 2024 Alcohol/Substance Use Screening 09/21/2024 Depression Screening and Follow-Up 09/21/2024 Social Drivers of Health Annual Screening 09/21/2024 RSV Vaccine (60+ years old a nd patients) (1 - 1-dose 75+ series) 2061 Insurance BCBS OUT OF STATE PPO Care Teams Photographic Artist Relationship Specialty Start Date End Date Kenia Wiggins [address] [place] [phone] (work) PCP - General Sports Medicine 10/18/19
--- OUTSIDE RECORDS SUMMARY | 2024-11-25 09:01 | XMS_ITS | Data Portability ---
Author Organization [facility] [employer] svmg_admin Address [address] [place] [id number] Care Team Providers Care Fire Alarm Mechanic Name Role Phone NEELIMA VÁZQUEZ Primary Care Provider DAVI BANGURA Rag Inspector Assessment Encounter Date Assessment Date Assessment LastModified [...] the patient was 5 mins START 1002 [id number] Not available 10/04/2024 10:14:17 Plan of Treatment Reminders Order Date Submit Date Provider Last Modified By Organization Details Last Modified Time Details Appointments None recorded. Lab lipid panel, serum 2024 025 [facility], [address] [place] [address], [address], 5 15:32:27 AST/SGOT (aspartate aminotrans ferase), serum or plasma 2024 025 [facility], [address] [place] [address], [address], 5 10:06:21 ALT (alanine aminotrans ferase), serum or plasma 2024 025 [facility], [address] [place] [address], [address], 5 10:06:21 CK (creatine kinase), total, serum 2024 025 [facility], [address] [place] [address], [address], 5 10:06:21 BMP, serum or plasma 2024 025 [facility], [address] [place] [address], [address], 5 10:06:21 lipid panel, serum [address], [address], 4 14:04:14 CK (creatine kinase), total, serum [address], [address], 4 14:04:14 ALT (alanine aminotrans ferase), serum or plasma [address], [address], 4 14:04:14 AST/SGOT (aspartate aminotrans ferase), serum or plasma [address], [address], 4 14:04:14 BMP, serum or plasma [address], [address], 4 14:04:14 magnesium, serum or plasma [address], [address], 4 14:04:14 TSH, serum or plasma [address], [address], 4 14:04:14 Referral None recorded. Procedures None recorded. Surgeries None recorded. Imaging electrocar diogram 2023 024 LORETTA In-Office Order, Internal Use Only DO Not Attach Compendium DO Not Attach Compendium, Do Not Delete/merge, [id number] 11:21:19 electrocar diogram 2023 [email or web address] In-Office Order, Internal Use Only DO Not Attach Compendium DO Not Attach Compendium, Do Not Delete/merge, [id number] 14:04:14 engine monitor 2023 DREWSEY [employer], [address] [facility], [place], [address], 10:45:12 US, echocardio gram, transthora cic, complete, w/ color flow - 2D Color-flow and Doppler with contrast if clinically indicated according to protocol. 2023 LORETTA Not available 15:02:48 exercise stress test 2023 [facility] ([facility]), [address] [place] [address], [address], 12:11:15 Medication Orders diltiazem ER 120 mg capsule,24 hr,extende d release 2023 [facility]RE[id number], [address] [place], [address], 11:13:15 Patient TargetsNo targets recorded. Patient Instructions Encounter Date Encounter Id Patient Instructions Last Modified By Organization Details Last Modified Time 05/04/2024 [id number] palpitations: care instructions [email or web address] Not available 05/04/2024 14:04:14 high blood pressure: care instructions rwholey Not available 05/04/2024 14:04:14 learning about high blood pressure rwholey Not available 05/04/2024 14:04:14 shortness of breath: care instructions rwholey Not available 05/04/2024 14:04:14 06/02/2024 [id number] palpitations: care instructions rwholey Not available 06/02/2024 17:14:23 PLACED A 3 DAY ZIO XT MONITOR FOR PALPITATIONS. ALL QUESTIONS ANSWERED. [email or web address] Not available 06/02/2024 14:04:40 10/04/2024 [id number] high blood pressure: care instructions Not available [...] DO Not Attach Compendium, Do Not Delete/merge, [id number] 05/04/2024 09:02:55 05/04/2005/04/2024 elect rocar diogr am No observ ation record ed. BARCODE Not Available 2023 12:33:22 06/09/20 24 06/09/2024 cardi ac monit or No observ ation record ed. gharding [employer] [address] [place] [address], [address], 07/01/2024 15:45:51 06/20/20 24 06/13/2024 exerc polly molina s test No observ ation record ed. [facility] ([facility]) [address] [place] [address], [address], 06/20/2024 14:49:24 06/29/2006/22/2024 US, echoc ardio gram, trans thora cic, compl ete, w/ color flow No observ ation record ed. gharding Not Available 2023 15:02:58 07/07/20 elect rocar diogr am No observ ation record ed. [email or web address] In-Office Order Internal Use Only DO Not Attach Compendium DO Not Attach Compendium, Do Not Delete/merge, [id number] 07/07/2024 09:53:38 07/07/20 24 07/07/2024 elect rocar diogr am No observ ation record ed. BARCODE Not Available 2023 16:51:27 07/11/2006/22/2024 US, echoc ardio gram, trans thora cic, compl ete, w/ color flow No observ ation record ed. [email or web address] Not Available 2023 12:02:41 08/14/20 24 06/13/2024 exerc ise stres s test No observ ation record ed. [facility] ([facility]) [address] [place] [address], [address], 08/14/2024 09:24:21 Result Notes None recorded. Problems Name Problem SNOMED Code Status Onset Date Resolution Date Notes Provider Name and Address Organization Details Recorded Time Mixed hyperlipidem ia 320887041 Active 2023 Jacque gregory [facility] 11:43:56 Benign essential hypertension 4789774 Active 2023 Jacque gregory [facility] 4 11:43:57 Irritable bowel syndrome 24205897 Active 2023 Yelitza gregory [facility] 15:01:12 Chronic niup-MYOEN-1 9 syndrome 9890279186 Active 2023 Yelitza gregory [facility] 4 15:01:12 Bipolar disorder 54663991 Active 2023 Yelitza gregory [facility] 15:01:12 Asthma 402840559 Active 2023 Yelitza gregory [facility] 4 15:01:12 Generalized anxiety disorder 71576850 Active 2023 Yelitza Estrada [facility] 15:01:12 Osteoarthrit is of knee 598370058 Active 2023 Yelitza gregory [facility] 4 15:01:12 Low back pain 001456258 [facility] 15:01:13 Attention deficit hyperactivit y disorder, predominantl y inattentive type 76376207 [facility] 15:01:13 Autism spectrum disorder 74529330 Active 2023 [facility] 15:01:13 Postural orthostatic tachycardia syndrome 990328875 [facility] 20[facility] 15:01:13 Migraine 35422672 Active 20[facility] 15:01:13 Posttraumati c stress disorder 55397110 Active 2023 [facility] 15:01:13 Essential hypertension 40693006 Active 2023 [facility] 15:01:13 Dyslexia 29946092 Active 2023 [facility] 4 15:01:13 Hypermobilit y of joint 090815900 Active 2023 Yelitza Estrada [facility] 4 15:01:13 Hiatal hernia 74067148 [facility] 2023 [facility] 15:01:13 Gender dysphoria 02150808 Active 2023 Yelitza Estrada [facility] 15:01:13 Problem Notes None recorded. Procedures Surgical History Date Name Laterality Status Provider Name and Address Organization Details Recorded Time Gallbladder Surgery completed [facility] 05/04/2024 09:02:35 Other Surgeries completed [facility] 05/04/2024 09:02:35 Pyloric Stenosis Repair completed Irena Wilkerson [facility] 05/04/2024 09:18:48 Imaging Results Imaging Date Name Status LastModified by Organization Details LastModified Time 05/04/2024 electrocardiogram completed In-Offi ce Order Internal Use Only DO Not Attach Compendium DO Not Attach Compendium, Do Not Delete/merge, [id number] 05/04/2024 09:02:55 05/04/2024 electrocardiogram completed [facility] Informa tion not available 05/04/2024 12:33:22 06/09/2024 engine monitor completed gharding [employer] [address] [place] [address], [address], 07/01/2024 15:45:51 06/13/2024 exercise stress test completed [facility] ([facility]) [address] [place] [address], [address], 06/20/2024 14:49:24 06/22/2024 US, echocardiogram, transthoracic, complete, w/ color flow completed Information not available 06/29/2024 15:02:58 07/07/2024 electrocardiogram completed [email or web address] In-Offi ce Order Internal Use Only DO Not Attach Compendium DO Not Attach Compendium, Do Not Delete/merge, [id number] 07/07/2024 09:53:38 07/07/2024 electrocardiogram completed [facility] Informa tion not available 07/07/2024 16:51:27 06/22/2024 US, echocardiogram, transthoracic, complete, w/ color flow completed [email or web address] Information not available 07/11/2024 12:02:41 06/13/2024 exercise stress test completed gharding [facility] ([facility]) [address] [place] [address], [address], 08/14/2024 09:24:21 Procedure Notes None recorded. Medical Equipment None Reported. Allergies Allergen ID Allergen Name Allergen Category Reaction Reaction Severity Criticality Documentation Date Start Date Code Code System Note Provider Name and Address Organization Details Recorded Time 262465 Substance with sulfonami de structure and antibacte rial mechanism of action (substanc e) medicatio n other Not available Not available 05/04/2024 47515 8003 SNOMED Irena gregory STELL[facility] 4 09:01:10 787071 house dust allergeni c extract environme nt,medica tion respirato ry distress Not available Not available 05/04/2024 65804 9 RxNorm Irena gregory [facility]LL[facility] 4 09:01:10 Medications Name Sig Start [...] Address Organization Details Last Updated DateTime 4 549620. 28 g 31.5 kg/m2 190.5 cm 98 % 98 % 72 /min 136 mm[Hg] 80 mm[Hg] 134 mm[Hg] 78 mm[Hg] Irena Wilkerson [facility]. 09:23:37 Date Recorded Body height Body mass index (BMI) Body weight Heart rate Systolic blood pressure Diastolic blood pressure Provider Name and Address Organization Details Last Updated DateTime 4 190.5 cm 32.7 kg/m2 326753. 2 g 68 /min 110 mm[Hg] 60 mm[Hg] Dora Amanda [facility]. 4 10:03:50 Date Recorded Body height Provider Name an d Address Organization Details Last Updated DateTime 10/04/2024 190.5 cm Shira Kumar [facility] 10/04/2024 09:26:23 Social History Question Answer Notes LastModified by Organizat ion Details LastModified Time Tobacco Smoking Status Never Smoker Irnea gregory [facility]. 05/04/2024 09:02:32 Do You Have An [...] Anxious, Or Unable To Sleep At Night)? [id number] Information not available 05/04/2024 Do You Use [...] SNOMED-CT Code Diagnosis ICD10 Code Diagnosis Note [id number] Davi Bangura MD [facility] [address] [address] 05/04/2024 08:58:40 05/04/2024 10:24:40 Palpitations 38331659 R00.2 Dyspnea 412592402 R06.02 Benign ess ential hypertension 0951702 I10 Mixed hyperlipidemia 267 326566 E78.2 [id number] Davi Bangura MD [facility] [address], [address] [place] [address] 06/02/2024 13:41:22 06/02/2024 14:39:14 Palpitations 73888772 R00.2 [id number] Lauren Diaz PA-C [facility] [address] [address] 07/07/2024 09:49:53 07/07/2024 10:59:34 Benign essential hypertension 1155503 I10 INCREASE diltiazem to 120mg twice daily Chronic po st-COVID-19 syndrome 6953880802 U09.9 Mixed hyperlipidemia 267 276104 E78.2 Postural o rthostatic tachycardia syndrome 792550007 G90.A Recommend daily fluid intake to 3L of fluids dailyRecom mend daily salt intake to 3.2-4.8g dailyRecom mend wearing compressio n tights daily as tolerated Palpitations 40372576 R0 0.2 INCREASE diltiazem to 120mg twice daily Postural dizziness 46446 7008 R42 Fatigue 16476048 R53.83 [id number] Lauren Diaz PA-C [facility] [address] [facility] [address] [place] [address] 10/04/2024 09:16:58 10/04/2024 11:52:02 Postural orthostatic tachycardia syndrome 664801008 G90.A Mixed hyperlipidemia 267 774754 E78.2 Benign ess ential hypertension 2806531 I10 [address] po [address]-COVID-19 syndrome 7612032112 U09.9 Palpitations 82816385 R0 0.2 Lightheadedness 69598866 8 R42 Dyspnea on exertion 6084 5006 R06.09 Chest pain 97089238 R07. 9 Health Concerns Section Related Observation LastModified by Organization Detai ls LastModified Time None Recorded Concern Status LastModified by Organization Details LastModified Time None Recorded Advance Directives Directive N: Payers Encounter Date Sequence Insurance Name Policy Number Policy Park Covered Member ID Park Member ID Guarantor Name 05/04/2024 1 FORMERLY [facility] Radhamaria teresa Kirby [id number] Radhamaria teresa Kirby 06/02/2024 1 FORMERLY [facility] [place] Radha Kirby [id number] Radhamaria teresa Kirby 07/07/2024 1 FORMERLY [facility] [place] Rdahamaria teresa Kirby [id number] Radhamaria teresa Kirby 10/04/2024 1 [facility]LY [facility] [place] Radhamaria teresa Kirby [id number] Radhamaria teresa Kirby Notes Date Note Type [...] ----US, echocardiogram, transthoracic, complete, w/ color flow [id number] stress test [id number] xt/zio monitor terminal manager continuous ambulatory engine monitor [id number] 03/01/24 LIBERTAD Santana-Tamara [address] [place] [address], [phone], [facility]. 07/07/2024 11:18:19 10/04/2024 text/html Radha Kirby is presenting to the office for a telemedicine follow up appointment. She has a past medical history of HTN, HLD, chronic covid syndrome, POTS. Her last appointment in our office was on 07/07/24 with tx. At this visit we discussed that Radha [...] ----Lipid (03/01/24)Stress (06/13/24)Echo (06/22/24)Monitor (06/09/24) LIBERTAD Santana-Tamara [address] [place] [address], [phone], [facility]. 10/04/2024 10:16:52 OBGyn Episode No OBEpisode recorded.
--- OUTSIDE RECORDS SUMMARY | 2024-11-25 09:01 | XMS_ITS | Data Portability ---
Author Organization [place] [facility], Main Office Address [address] [place] [address] Assessment No assessment recorded. Plan of Treatment Reminders Order Date Submit Date Provider Last Modified By Organization Details Last Modified Time Details Appointments None recorded. Lab VIKY (antinuclea r antibodies) screen, ifa, serum 2022 023 [facility], [address] [place] [address], [phone], 3 04:48:46 erythrocyte sedimentati on rate by westergren method 2022 023 [facility], [address] [place], [address], 3 04:48:45 C-reactive protein, quantitativ e, serum or plasma 2022 023 [facility], [address] [place] [address], [address], 3 04:48:47 rf (rheumatoid factor), serum 2022 023 [facility], [address] [place], [address], 3 04:48:46 urinalysis, dipstick 2022 023 [facility] Main Office, [address] [place], [address], 3 16:08:08 CBC w/ auto diff 2022 023 [facility], [address] [place], [address], 3 04:48:45 CMP, serum or plasma 2022 023 [facility], [address] [place], [address], 3 04:48:44 lipid panel, serum 2022 023 [facility], [address] [place], [address], 3 04:48:43 TSH, serum or plasma 2022 023 [facility], [address] [place], [address], 3 04:48:48 Referral None recorded. Procedures None recorded. Surgeries None recorded. Imaging None recorded. Medication Orders bupropion HCl XL 300 mg 24 hr tablet, extended release 2023 024 [id number], [address] [facility], [place], [address], 4 13:27:53 Patient TargetsNo targets recorded. Patient InstructionsNo instructions recorded. Reason for Referral None Reported. Results Created Date Observation Date Name Description Value Unit Range Abnormal Flag Note LastModifiedBy Organization Detail LastModifiedTime 03/30/2003/30/2023 urina lysis , dipst ick Leukocytes negati ve Not Available Main Office [address] [place], [address], 03/30/2023 14:39:52 03/30/2003/30/2023 urina lysis , dipst ick Nitrite negati ve Not Available Main Office [address] [place], [address], 03/30/2023 14:39:52 03/30/20 23 03/30/2023 urina lysis , dipst ick Protein negati ve Not Available Main Office [address] [place], [address], 03/30/2023 14:39:52 03/30/20 23 03/30/2023 urina lysis , dipst ick Blood negati ve Not Available Main Office [address] [place], [address], 03/30/2023 14:39:52 03/30/20 23 03/30/2023 urina lysis , dipst ick Ketone negati ve Not Available Main Office [address] [place], [address], 03/30/2023 14:39:52 03/30/2003/30/2023 urina lysis , dipst ick Glucose negati ve Not Available Main Office [address] [place], [address], 03/30/2023 14:39:52 04/01/20 23 04/02/2023 LIPID PANEL , STAND LAZARO cholesterol, total 263 mg/dL <200 high Not Available [facility] [address], [address], 04/02/2023 06:54:19 04/01/20 23 04/02/2023 LIPID PANEL , STAND LAZARO HDL cholesterol 78 mg/dL > or = 50 normal Not Available [facility] [address], [place], [address], 04/02/2023 06:54:19 04/01/20 23 04/02/2023 LIPID PANEL , STAND LAZARO triglyceride s 110 mg/dL <150 normal Not Available [facility] [address], [address], 04/02/2023 06:54:19 04/01/20 23 04/02/2023 LIPID PANEL , STAND LAZARO LDL-choleste rol 162 mg/dL _(lamine c) high Refer ence range : <100 Roxana able range <100 mg/dL for prima ry preve ntion ; <70 mg/dL for patie nts with CHD or diabe tic patie nts with > or = 2 CHD risk facto rs. LDL-C is now calcu lated using the Isi n-Hop kins calcu bridget hawkins, which is a valid ated novel metho d provi ding angela r accur acy than the Fried james equat ion in the estim ation of LDL-C . Isi hawkins SS et al. KELSEY. 2013; 310(1 9): 2061- 206 (http ://ed ucati on.Hermes IQ. [employer]/f aq/FA Q164) Not Available [facility] [place] [facility] [address], [place], [address], 04/02/2023 06:54:19 04/01/20 23 04/02/2023 LIPID PANEL , STAND LAZARO chol/HDLC ratio 3.4 (calc ) <5.0 normal Not Available [facility] [place] [facility] [address], [place], [address], 04/02/2023 06:54:19 04/01/20 23 04/02/2023 LIPID PANEL , STAND LAZARO non HDL cholesterol 185 mg/dL _(lamine c) <130 high For patie nts with diabe sandip plus 1 major ASCVD risk facto r, treat ing to a non-H DL-C goal of <100 mg/dL (LDL- C of <70 mg/dL ) is consi dered a thera pemercy c optio n. Not Available [facility] [place] [facility] [address], [place], [address], 04/02/2023 06:54:19 04/01/2004/02/2023 COMPR EHENS IVONNE METAB OLIC PANEL glucose 85 mg/dL 65-99 normal Fasti ng refer ence inter jeanne Not Available [facility] [place] [facility] [address], [place], [address], 04/02/2023 06:54:21 04/01/20 23 04/02/2023 COMPR EHENS IVONNE METAB OLIC PANEL urea nitrogen (BUN) 13 mg/dL 7-25 normal Not Available [facility] [address] [place], [place], [address], 04/02/2023 06:54:21 04/01/20 23 04/02/2023 COMPR EHENS IVONNE METAB OLIC PANEL creatinine 0.82 mg/dL 0.50-0 .97 normal Not Available [facility] [address] [place], [place], [address], 04/02/2023 06:54:21 04/01/20 23 04/02/2023 COMPR EHENS IVONNE METAB OLIC PANEL eGFR 94 mL/mi n/1.7 3m2 > or = 60 normal The eGFR is based on the CKD-E PI 2020 equat ion. To calcu late the new eGFR from a previ ous Creat inine or Cysta tin C resul t, go to https ://mars clark.matti hopson/elisha barros s/ kdoqi /gfr% 5Fcal culat or Not Available [facility] [address], [place], [address], 04/02/2023 06:54:21 04/01/20 23 04/02/2023 COMPR EHENS IVONNE METAB OLIC PANEL BUN/creatini ne ratio NOT APPLIC ABLE (calc ) 6-22 Not Available [facility] [address] [place], [place], [address], 04/02/2023 06:54:21 04/01/20 23 04/02/2023 COMPR EHENS IVONNE METAB OLIC PANEL sodium 139 mmol/ L 135-14 6 normal Not Available [facility] [address] [place], [place], [address], 04/02/2023 06:54:21 04/01/20 23 04/02/2023 COMPR EHENS IVONNE METAB OLIC PANEL potassium 4.5 mmol/ L 3.5-5. 3 normal Not Available [facility] [address], [place], [address], 04/02/2023 06:54:21 04/01/2004/02/2023 COMPR EHENS IVONNE METAB OLIC PANEL chloride 104 mmol/ L 98-110 normal Not Available [facility] [address], [place], [address], 04/02/2023 06:54:21 04/01/2004/02/2023 COMPR EHENS IVONNE METAB OLIC PANEL carbon dioxide 29 mmol/ L 20-32 normal Not Available [facility] [address], [place], [address], 04/02/2023 06:54:21 04/01/2004/02/2023 COMPR EHENS IVONNE METAB OLIC PANEL calcium 9.6 mg/dL 8.6-10 .2 normal Not Available [facility] [address], [place], [address], 04/02/2023 06:54:21 04/01/2004/02/2023 COMPR EHENS IVONNE METAB OLIC PANEL protein, total 6.6 g/dL 6.1-8. 1 normal Not Available [facility] [address], [place], [address], 04/02/2023 06:54:21 04/01/2004/02/2023 COMPR EHENS IVONNE METAB OLIC PANEL albumin 4.3 g/dL 3.6-5. 1 normal Not Available [facility] [address], [place], [address], 04/02/2023 06:54:21 04/01/20 23 04/02/2023 COMPR EHENS IVONNE METAB OLIC PANEL globulin 2.3 g/dL_ (calc ) 1.9-3. 7 normal Not Available [facility] [address], [place], [address], 04/02/2023 06:54:21 04/01/20 23 04/02/2023 COMPR EHENS IVONNE METAB OLIC PANEL albumin/glob ulin ratio 1.9 (calc ) 1.0-2. 5 normal Not Available [facility] [address], [place], [address], 04/02/2023 06:54:21 04/01/20 23 04/02/2023 COMPR EHENS IVONNE METAB OLIC PANEL bilirubin, total 0.3 mg/dL 0.2-1. 2 normal Not Available [facility] [address], [place], [address], 04/02/2023 06:54:21 04/01/20 23 04/02/2023 COMPR EHENS IVONNE METAB OLIC PANEL alkaline phosphatase 56 U/L 31-125 normal Not Available [facility] [address], [place], [address], 04/02/2023 06:54:21 04/01/20 23 04/02/2023 COMPR EHENS IVONNE METAB OLIC PANEL AST 13 U/L 10-30 normal Not Available [facility] [address], [place], [address], 04/02/2023 06:54:21 04/01/20 23 04/02/2023 COMPR EHENS IVONNE METAB OLIC PANEL ALT 26 U/L 6-29 normal Not Available [facility] [address], [place], [address], 04/02/2023 06:54:21 04/01/2004/02/2023 SED RATE BY MODIF IED WESTE RGREN sed rate by modified westergren 2 mm/h < or = 20 normal Not Available [facility] [place] [facility] [address], [place], [address], 04/02/2023 04:48:45 04/01/20 23 04/02/2023 CBC (INCL UDES DIFF/ PLT) white blood cell count 5.9 thous and/u L 3.8-10 .8 normal Not Available [facility] [place] [facility] [address], [place], [address], 04/02/2023 04:48:45 04/01/20 23 04/02/2023 CBC (INCL UDES DIFF/ PLT) red blood cell count 4.88 zia on/uL 3.80-5 .10 normal Not Available [facility] [address], [place], [address], 04/02/2023 04:48:45 04/01/20 23 04/02/2023 CBC (INCL UDES DIFF/ PLT) hemoglobin 14.2 g/dL 11.7-1 5.5 normal Not Available [facility] [place] [facility] [address], [place], [address], 04/02/2023 04:48:45 04/01/2004/02/2023 CBC (INCL UDES DIFF/ PLT) hematocrit 42.3 % 35.0-4 5.0 normal Not Available [facility] [address], [place], [address], 04/02/2023 04:48:45 04/01/20 23 04/02/2023 CBC (INCL UDES DIFF/ PLT) MCV 86.7 fL 80.0-1 00.0 normal Not Available [facility] [place] [facility] [address], [place], [address], 04/02/2023 04:48:45 04/01/20 23 04/02/2023 CBC (INCL UDES DIFF/ PLT) MCH 29.1 pg 27.0-3 3.0 normal Not Available [facility] [place] [facility] [address], [place], [address], 04/02/2023 04:48:45 04/01/2004/02/2023 CBC (INCL UDES DIFF/ PLT) MCHC 33.6 g/dL 32.0-3 6.0 normal Not Available [facility] [place] [facility] [address], [place], [address], 04/02/2023 04:48:45 04/01/20 23 04/02/2023 CBC (INCL UDES DIFF/ PLT) RDW 12.8 % 11.0-1 5.0 normal Not Available [facility] [place] [facility] [address], [place], [address], 04/02/2023 04:48:45 04/01/20 23 04/02/2023 CBC (INCL UDES DIFF/ PLT) platelet count 268 thous and/u L 140-40 0 normal Not Available [facility] [place] [facility] [address], [place], [address], 04/02/2023 04:48:45 04/01/2004/02/2023 CBC (INCL UDES DIFF/ PLT) MPV 9.7 fL 7.5-12 .5 normal Not Available [facility] [place] [facility] [address], [place], [address], 04/02/2023 04:48:45 04/01/20 23 04/02/2023 CBC (INCL UDES DIFF/ PLT) absolute neutrophils 3688 cells /uL 1500-7 800 normal Not Available [facility] [place] [facility] [address], [place], [address], 04/02/2023 04:48:45 04/01/20 23 04/02/2023 CBC (INCL UDES DIFF/ PLT) absolute lymphocytes 1587 cells /uL 850-39 00 normal Not Available [facility] [place] [facility] [address], [place], [address], 04/02/2023 04:48:45 04/01/20 23 04/02/2023 CBC (INCL UDES DIFF/ PLT) absolute monocytes 413 cells /uL 200-95 0 normal Not Available [facility] [place] [facility] [address], [place], [address], 04/02/2023 04:48:45 04/01/20 23 04/02/2023 CBC (INCL UDES DIFF/ PLT) absolute eosinophils 171 cells /uL 15-500 normal Not Available [facility] [place] [facility] [address], [place], [address], 04/02/2023 04:48:45 04/01/20 23 04/02/2023 CBC (INCL UDES DIFF/ PLT) absolute basophils 41 cells /uL 0-200 normal Not Available [facility] [place] [facility] [address], [place], [address], 04/02/2023 04:48:45 04/01/20 23 04/02/2023 CBC (INCL UDES DIFF/ PLT) neutrophils 62.5 % normal Not Available [facility] [place] [facility] [address], [place], [address], 04/02/2023 04:48:45 04/01/20 23 04/02/2023 CBC (INCL UDES DIFF/ PLT) lymphocytes 26.9 % normal Not Available [facility] [place] [facility] [address], [place], [address], 04/02/2023 04:48:45 04/01/20 23 04/02/2023 CBC (INCL UDES DIFF/ PLT) monocytes 7.0 % normal Not Available [facility] [place] [facility] [address] [place], [place], [address], 04/02/2023 04:48:45 04/01/20 23 04/02/2023 CBC (INCL UDES DIFF/ PLT) eosinophils 2.9 % normal Not Available [facility] [place] [facility] [address] [place], [place], [address], 04/02/2023 04:48:45 04/01/20 23 04/02/2023 CBC (INCL UDES DIFF/ PLT) basophils 0.7 % normal Not Available [facility] [place] [facility] [address] [place], [place], [address], 04/02/2023 04:48:45 04/01/20 23 04/05/2023 VIKY SCREE N, IFA, W/REF L TITER AND PATTE RN VIKY screen, ifa NEGATI VE negati ve normal VIKY IFA is a first line scree n for detec ting the prese nce of up to appro ximat hamlet 150 autoa ntibo dies in vario us autoi mmune disea ses. A negat ivonne VIKY IFA resul t sugge sts an VIKY-a ssoci ated autoi mmune disea se is not prese nt at this time, but is not defin itive . If there is high clini lamine suspi cion for Sjogr en's syndr ome, testi ng for anti- SS-A/ Ro antib clifton shoul d be consi dered . Anti- Breana-1 antib clifton shoul d be consi dered for clini [place] suspe cted infla mmato ry myopa gene . AC-0: Negat ivonne Inter natio nal Conse nsus on VIKY Patte rns (http s://d oi.or g/10. 1515/ cclm- 2017- 0052) For addit ional infor maria e newell refer to http: //elliott Perezia gnost ics.c om/fa q/FAQ 177 (This link is being provi ded for infor edgar arnett/ kamron bull purpo ses only. ) Not Available [facility] [place] [facility] [address], [address], 04/05/2023 14:35:53 04/01/20 23 04/02/2023 RHEUM ATOID FACTO R rheumatoid factor <14 IU/mL <14 normal Not Available [facility] [place] [facility] [address], [place], [address], 04/02/2023 13:30:15 04/01/20 23 04/02/2023 C-NIRU CTIVE PROTE IN C-reactive protein 1.6 mg/L <8.0 normal Not Available [facility] [place] [facility] [address], [place], [address], 04/02/2023 13:30:16 04/01/20 23 04/02/2023 TSH TSH 2.85 mIU/L normal Refer ence Range > or = 20 Years 0.40- 4.50 Pregn kelly Range s First trime ster 0.26- 2.66 Secon d trime ster 0.55- 2.73 Third trime ster 0.43- 2.91 Not Available [facility] [address], [place], [address], 04/02/2023 06:54:28 Result Notes None recorded. Problems Name Problem SNOMED Code Status Onset Date Resolution Date Notes Provider Name and Address Organization Details Recorded Time Gender dysphoria 18368775 Active 2022 Not Available [facility] 3 12:28:14 Bipolar I disorder 316703496 Active 2022 Not Available [facility] 3 12:28:14 Major depressive disorder 236008264 Active 2022 Not Available [facility] 3 12:28:14 Generalize d anxiety disorder 88978243 Active 2022 Not Available [facility] 3 12:28:14 Chronic post-traum atic stress disorder 012088157 Active 2022 Not Available [facility] 3 12:28:14 Attention deficit hyperactiv ity disorder 911188541 Active 2022 Not Available [facility] 3 12:28:14 Autism spectrum disorder 04037857 Active 2022 Not Available [facility] 3 12:28:14 Dyslexia 82036356 Active 2022 Not Available [facility] 3 12:28:14 Insomnia 824763591 Active 2022 Not Available [facility] 3 12:28:14 Eating disorder in remission 397802305 Active 2022 Not Available [facility] 3 12:28:14 Vitamin D deficiency 61749675 Active 2022 Not Available [facility] 3 12:28:14 Irritable bowel syndrome 13930257 Active 2022 Not Available [facility] 3 12:28:14 Delayed gastric emptying 589963085 Active 2022 Not Available [facility] 3 12:28:14 Gastroesop hageal reflux disease 210234244 Active 2022 Not Available [facility] 3 12:28:14 Hiatal hernia 84585844 Active 2022 Not Available [facility] 3 12:28:14 Essential hypertensi on 47107552 Active 2022 Not Available [facility] 3 12:28:14 Post-acute COVID-19 0952879384 Active 2022 Not Available [facility] 3 12:28:14 Asthma 152032460 Active 2022 Not Available [facility] 3 12:28:14 Osteoarthr itis of knee 481714883 Active 2022 Not Available [facility] 3 12:28:14 Achilles tendinitis 43951274 Active 2022 Not Available [facility] 3 12:28:14 Hypermobil ity syndrome 94279281 Active 2022 Not Available [facility] 3 12:28:14 Congenital pes planus 30474081 Active 2022 Not Available [facility] 3 12:28:14 Chronic migraine without aura 7786250821334 05 Active 2022 Not Available [facility] 3 12:28:14 Problem Notes None recorded. Procedures Surgical History Date Name Laterality Status Provider Name and Address Organization Details Recorded Time 09/21/19 20 cholecystectomy completed MANUELA ROBERTS PA-C [address] [place] [address], [address], [facility] 03/30/2023 15:07:46 Imaging Results None recorded. Procedure Notes None recorded. Medical Equipment None Reported. Allergies Allergen ID Allergen Name Allergen Category Reaction Reaction Severity Criticality Documentation Date Start Date Code Code System Note Provider Name and Address Organization Details Recorded Time 6249 Substance with sulfonami de structure and antibacte rial mechanism of action (substanc e) medicatio n anaphylax is Not available Not available 03/30/2023 08628 8003 SNOMED Not Available Not Available Not Available Medications Name Sig Start Date Stop Date Status Note LastModified by Organization Details LastModified Time eq stool softener 100mg cap TAKE 1 CAPSULE BY MOUTH IN THE MORNING AND IN THE EVENING 03/30 completed Not Available Not Available Not Available d3 super strength 50 mcg (1999 ut) caps active Not Available Not Available Not Available cetirizine 10 mg tablet TAKE 1 TABLET BY MOUTH EVERY DAY active Not Available Not Available No t Available atorvastati n 10 mg tablet TAKE 1 TABLET BY MOUTH EVERYDAY AT BEDTIME 2023 active Not Available Not Available Not Avai lable medroxyprog esterone 2.5 mg tablet TAKE 1 TABLET BY MOUTH EVERY DAY active Not Available Not Available No t Available lisinopril 20 mg tablet TAKE 1 TABLET BY MOUTH EVERY DAY active Not Available Not Available No t Available spironolact one 100 mg tablet 03/30 completed Not Available Not Available Not Available olanzapine 5 mg tablet TAKE 1 TABLET BY MOUTH ONCE DAILY 03/30 completed Not Available Not Available Not Available hydroxyzine HCl 50 mg tablet TAKE 1 TABLET BY MOUTH EVERY DAY active Not Available Not Available No t Available lisinopril 10 mg tablet 03/30 completed Not Available Not Available Not Available docusate sodium 100 mg capsule TAKE 1 CAPSULE BY MOUTH EVERY DAY IN THE MORNING AND IN THE EVENING active Not Available Not Available No t Available omeprazole 20 mg capsule,del ayed release TAKE 1 CAPSULE BY MOUTH EVERY DAY active Not Available Not Available No t Available estradiol 2 mg tablet TAKE 3 TABLETS BY MOUTH EVERY DAY active Not Available Not Available No t Available fluticasone propionate 110 mcg/actuati on HFA aerosol inhaler INHALE 1 PUFF TWICE A DAY BY INHALATIO N ROUTE. active Not Available Not Available No t Available finasteride 1 mg tablet TAKE 1 TABLET BY MOUTH EVERY DAY 2023 active Not Available Not Available Not Avai lable Ventolin HFA 90 mcg/actuati on aerosol inhaler INHALE 2 PUFFS EVERY 4 HOURS BY INHALATIO N ROUTE. active Not Available Not Available No t Available buspirone 15 mg tablet TAKE 1 TABLET BY MOUTH TWICE A DAY active Not Available Not Available No t Available bupropion HCl XL 300 mg 24 hr tablet, extended release TAKE 1 TABLET BY MOUTH EVERY DAY active Not Available Not Available No t Available escitalopra m 5 mg tablet TAKE 1 TABLET BY MOUTH EVERY DAY active Not Available Not Available No t Available multivitami n daily active Not Available Not Available Not Available quetiapine 50 mg tablet TAKE 1 TABLET BY MOUTH ONCE DAILY 03/30 completed Not Available Not Available Not Available Gavilyte-C 240 gram-22.72 gram-6.72 gram-5.84 gram oral solution TAKE 4,000 ML BY MOUTH ONCE FOR 1 DOSE 03/30 completed Not Available Not Available Not Available GaviLyte-G 236 gram-22.74 gram-6.74 gram-5.86 gram oral solution 03/30 completed Not Available Not Available Not Available Vitamin D3 50 mcg (2,000 unit) capsule TAKE 1 CAPSULE BY MOUTH EVERY DAY active Not Available Not Available No t Available bupropion HCl XL 450 mg 24 hr tablet, extended release TAKE 1 TABLET BY MOUTH EVERY DAY active Not Available Not Available No t Available Trulance 3 mg tablet TAKE 1 TABLET BY MOUTH ONCE DAILY FOR CONSTIPAT ION 03/30 completed Not Available Not Available Not Available Fish Oil 1,200 mg (144 mg-216 mg) capsule Take 1 capsule twice a day by oral route. 2022 active Not Available Not Available Not Avai lable Vitals Date Recorded Body height Heart rate Oxygen saturation Oxygen saturation in Arterial blood by Pulse oximetry Body mass index (BMI) Body weight Systolic blood pressure Diastolic blood pressure Provider Name and Address Organization Details Last Updated DateTime 189.23 cm 78 /min 98 % 98 % 31.9 kg/m2 231613. 28 g 110 mm[Hg] 72 mm[Hg] Judi Worrell [facility] 14:51:25 Date Recorded Body height Provider Name an d Address Organization Details Last Updated DateTime 01/11/2024 189.23 cm LIBERTAD Lai [address] [place] [address], [phone], [facility] 01/11/2024 13:13:15 Social History Question Answer Notes LastModified by Organizat ion Details LastModified Time Tobacco Smoking Status Never Smoker Judi gregory, [facility] 03/30/2023 14:48:52 What Is Your Level Of Alcohol Consumption? Occasional Information not available 03/30/2023 Are You Blind Or Do You Have Difficulty Seeing? No Information not available 03/30/2023 What Is Your Level Of Caffeine Consumption? Moderate Information not available 03/30/2023 What Type Of Corrections Nurse Do You Use? None Information not available 03/30/2023 In The 14 Days Before Symptom Onset, Have You Had Close Contact With A Laboratory-confir med COVID-19 While That Case Was Ill? No Information not available 03/30/2023 In The 14 Days Before Symptom Onset, Have You Had Close Contact With A Person Who Is Under Investigation For COVID-19 While That Person Was Ill? No Information not available 03/30/2023 Have You Been To An Area Known To Be High Risk For COVID-19? No Information not available 03/30/2023 Are You Deaf Or Do You Have Serious Difficulty Hearing? No Information not available 03/30/2023 What Type Of Diet Are You Following? SPECIFIC High Fiber Information not available 03/30/2023 Have You Processed Blood Or Body Fluids From An Ebola Virus Disease Patient Without Appropriate PPE? No Information not available 03/30/2023 Do You Reside In Or Have You Traveled To An Area Where Ebola Virus Transmission Is Active? No Information not available 03/30/2023 Have There Been Any Changes To Your Family Or Social Situation? No Information no t available 03/30/2023 What Is The Fluoride Status Of Your Home? Unknown Information not available 03/30/2023 Have You Recently Or Are You Planning To Travel To An Area With Zika Virus? No Information not available 03/30/2023 Do You Use Insect Repellent Routinely? No Information not available 03/30/2023 Housing What Is Your Housing Situation Today? I Have Housing Information not available 03/30/2023 Food/ Within The Past 12 Months The Food (you/we) Brought Just Didn't Last And (you/we) Didn't Have Money To Get More Never Information not available 03/30/2023 Utilities: In The Last 12 Month [facility] Threatened To Shut Off Services In Your Home? No Information not available 03/30/2023 Transportation: Inthe Last 12 Months Have You Missed A Medical Appointment Because You Didn't Have A Way To Get There? No Information not available 03/30/2023 Employment: Are You Currently Unemployed Or Looking For Work? No Information no t available 03/30/2023 Safety: Do You Feel Physically Or Emotionally Safe Where You Currently Live? Yes Information not available 03/30/2023 Social Support: Do You Ever Feel Alone Or Isolated From Friends Family Or Anyone Else In Your Life? No: I Do Not Feel Alone Or Isolated Information not available 03/30/2023 Would You Like Help With Anything Above? No Information not available 03/30/2023 What Was The Date Of Your Most Recent Tobacco Screening? 03/30/2023 Information not available 03/30/2023 How Many Children Do You Have? 0 Information not available 03/30/2023 Do You Use Your Seat Belt Or Car Seat Routinely? Yes Information not available 03/30/2023 Do You Have Smoke And Carbon Monoxide Detectors In Your Home? Yes Information not available 03/30/2023 Are You Passively Exposed To Smoke? No Information no t available 03/30/2023 Do You Feel Stressed (tense, Restless, Nervous, Or Anxious, Or Unable To Sleep At Night)? [id number] Information not available 03/30/2023 Do You Use Any Illicit Or Recreational Drugs? No Information not available 03/30/2023 Do You Use Sunscreen Routinely? Yes Information not available 03/30/2023 Do You Or Have You Ever Used Any Other Forms Of Tobacco Or Nicotine? No Information not available 03/30/2023 Sex: Unknown Functional Status Question Answer Note LastModified by Organizat ion Details LastModified Time Do you have difficulty walking or climbing stairs? No Information not available 03/30/2023 Do you have transportation difficulties? No Information not available 03/30/2023 Are you able to walk? YESWOREST Information not available 03/30/2023 Do you have difficulty doing errands alone? No Information not available 03/30/2023 Are you able to care for yourself? Yes Information n ot available 03/30/2023 Do you have difficulty dressing or bathing? No Information not available 03/30/2023 What is your exercise level? Occasional Information not available 03/30/2023 Mental Status Question Answer Note LastModified by Organization D etails LastModified Time Do you have difficulty concentrating, remembering or making decisions? No Information no t available 03/30/2023 Family History Nothing Reported. Medical History No medical history recorded. Gynecological HistoryNo gynecological history recorded. Obstetrics History GPAL:G 0 P 0 0 0 0 Immunizations Vaccine Type Date Status Note Provider Nam e and Address Organization Details Recorded Time COVID-19, mRNA, LNP-S, PF, pamela-sucrose, 30 mcg/0.3 mL 08/05/2023 completed Miladys Flori gregory [facility] INTER[facility] MEDICINE ASSOCIATE 08/08/2023 18:35:35 Tdap 07/21/2024 completed Miladys gregory STELLA [facility] INTERNAL MEDICINE [facility]OC[facility] 10/24/2024 09:54:26 COVID-19, mRNA, LNP-S, PF, 50 mcg/0.5 mL 10/22/2024 completed Miladys gregory STELLA [facility] INTER[facility] MEDICINE [facility]OC[facility] 10/24/2024 09:54:40 Past Encounters Encounter ID Performer Location Encounter Start Date Encounter Closed Date Diagnosis/Indication Diagnosis SNOMED-CT Code Diagnosis ICD10 Code Diagnosis Note [id number] Michoacano Alarcon MD Main Office [address] [place] [address] 03/30/2023 14:31:58 03/30/2023 15:57:42 Adult health examination 296874902 Z00.00 38 yo trans female with a complex medical history presenting today as a new patient for annual exam. She has many chronic conditions as listed below. However, most of them are currently stable. She is not fasting today, will put in orders to an outside quest for FBW. Asthma 739740148 J45.90 9 See above. Uses flovent and albuterol PRN. She is not seeing a pulmonolog ist. Vitamin D deficiency 347 07175 E55.9 Taking daily vitamin d. Stable under current management plan based on subjective and objective findings. Essential hypertension 12374447 I10 Taking lisinopril 20 mg daily. BP today is 110/72. Stable under current management plan based on subjective and objective findings. Gastroesop hageal reflux disease 071564769 K21.9 See above. Followed by GI. Taking omeprazole daily. Irritable bowel syndrome 34984092 K58.9 Patient has IBS primarily constipati on. She is in the process of getting worked up for other GI conditions with her GI specialist out of [facility]. She has a colonoscop y scheduled for later this week. 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 She reports persistent wheezing and shortness of breath. She is working on getting set up with a long covid specialist in [place]. Osteoarthr itis of knee 453862879 M17.9 Patient has chronic pain due to arthritis. Of note, her mother has RA. Will check an VIKY as well as inflammato ry markers to rule out an autoimmune inflammato ry cause of her symptoms. Hiatal hernia 96398796 K 44.9 See above. Delayed ga stric emptying 173602658 K30 See above. Hypermobil ity syndrome 34040322 M35.7 She would like to have genetic testing done in the future for evaluation of connective tissue disorders. Congenital pes planus 23 019880 Q66.50 She is getting custom orthotics later this week. Achilles tendinitis 1165 4001 M76.60 See above. Chronic mi graine without aura 0311620159 12945 G43.709 Currently is having 2-3 migraines per month. Stable under current management plan based on subjective and objective findings. Bipolar I disorder 11782 6008 F31.9 Seeing a therapist regularly but is not currently seeing a psychiatri st. She is taking bupropion 300 mg daily and buspar 15 mg BID with good effect. She also uses hydroxyzin e PRN for anxiety. She is looking to get set up with another psychiatri st in the future. Informatio n given today. Major depr essive disorder 523970405 F32.9 See above. Attention deficit hyperactivity disorder 261571671 F90.9 Not currently on medication . Stable under current management plan based on subjective and objective findings. Chronic post-traumatic stress disorder 819159084 F43.12 See above. Autism spe ctrum disorder 21426532 F84.0 Stable under current management plan based on subjective and objective findings. Generalize d anxiety disorder 94146475 F41.1 See above. Dyslexia 04082298 F81.0 Stable under current management plan based on subjective and objective findings. Gender dysphoria 8757819 9 F64.9 She is stable on hormone therapy. She is not currently seeing a specialist for management of hormones. Will manage hormones moving forward unless she requires dose adjustment s. Eating dis order in remission 812239828 F50.9 Stable under current management plan based on subjective and objective findings. Insomnia 056609664 G47.0 0 Stable under current management plan based on subjective and objective findings. [id number] Michoacano Alarcon MD Main Office [address] [place] [address] 01/11/2024 13:02:56 01/11/2024 16:42:34 Bipolar I disorder 671259462 F31.9 Seeing a therapist regularly but is not currently seeing a psychiatri st. She is taking bupropion 300 mg daily and buspar 15 mg BID with good effect. She also uses hydroxyzin e PRN for anxiety. She is looking to get set up with another psychiatri st but has recently moved to [place], [place] and is wait listed.She has switched her insurance to try to obtain a psychiatri st. 3-months of bupropion 300mg XL was prescribed today. Patient was informed that she needs to find a PCP and psychiatri st to take over care. Hypermobil ity of joint 332159175 R29.898 Patient reports she has hypermobil ity in her joints. She would like to be evaluated for possible EDS. Advised patient to call her insurance to find a molded grid and parts inspector . From there, she can seek a specialist specifical ly for hypermobil ity disorder, if found. Health Concerns Section Related Observation LastModified by Organization Detai ls LastModified Time None Recorded Concern Status LastModified by Organization Details LastModified Time None Recorded Advance Directives Directive None Recorded Payers Encounter Date Sequence Insurance Name Policy Number Policy Park Covered Member ID Park Member ID Guarantor Name 03/30/2023 1 [facility] DIRECT CONNECTORCARE TYPE I (HMO) [id number] Radha Kirby [id number] Januarymaria teresa Kirby 01/11/2024 1 [facility] - DIRECT CONNECTORCARE TYPE I (HMO) [id number] Radha Mirta [id number] Mirta Notes Date Note Type Note Provider Name and Address Organization Details Recorded Time 03/30/2023 text/html 38 yo trans female with a complex medical history presenting today as a new patient for annual exam. Michoacano Alarcon MD [address] [place], [phone], [facility] INTER[facility] MEDICINE ASSOCIATE 04/01/2023 08:40:43 01/11/2024 text/html 38 yo trans female with a complex medical history presenting today for a medication follow up. Michoacano Alarcon MD [address] [place], [phone], [facility] INTER[facility] MEDICINE [facility]OCIATE 01/11/2024 13:48:52 OBGyn Episode No OBEpisode recorded.
--- OUTSIDE RECORDS SUMMARY | 2024-11-25 09:01 | XMS_ITS | Referral Summary ---
Author Organization [facility] Address [address] [place] [address] Care Team Providers Care Can Sterilizer Name Role Phone Kenia Wiggins Primary Care Provider + [phone] Allergies Active Allergy Reactions Criticality Noted Date [...] BCBS OUT OF STATE PPO Care Teams Can Sterilizer Relationship Specialty Start Date End Date Kenia Wiggins [address] [place] [phone] PCP - General Sports Medicine 10/18/19
== END 2024-11-25 08:33 | disposition home or self-care (01) ==
LOC: HO.US 08:32
PROVIDERS: PCP Family Medicine; Visit Provider Nurse Practitioner Family
DX: R10.9 Unspecified abdominal pain (principal)
CPT/HCPCS: 76700

== ENCOUNTER → 2024-11-25 08:34 | Outpatient (BNV) | payer OTHER, SELFPAY | PROVIDERS: PCP Family Medicine; Visit Provider Radiology Diagnostic Radiology | DX: R10.9 Unspecified abdominal pain (principal) | CPT/HCPCS: 76700 ==

== ENCOUNTER 2024-12-01 14:01 | Outpatient (AMB) | payer OTHER, SELFPAY ==
--- NOTE | 2024-12-01 14:25 | AM.OFFVISNUR ---
Intake Visit Reasons: h pylori Intake Note: Patient presents for collection of H Pylori breath test. Patient has been fasting for 1 hour (nothing to eat, drink, no chewing gum or smoking) has not taken any antacid medication for at least 2 weeks and has no allergies to artificial sweeteners.?? Allergies Sulfa (Sulfonamide Antibiotics) Allergy (Verified 04/08/24 11:29) Anaphylaxis Assessment & Plan Assessment & Plan (1) GERD (gastroesophageal reflux disease): Code(s): K21.9 - Gastro-esophageal reflux disease without esophagitis (2) Abdominal pain: Code(s): R10.9 - Unspecified abdominal pain Plan Patient presents for collection of H Pylori breath test. Patient has been fasting for 1 hour (nothing to eat, drink, no chewing gum or smoking) has not taken any antacid medication for at least 2 weeks and has no allergies to artificial sweeteners.???This test checks for an overgrowth of bacteria in your stomach. We all have bacteria but some may have more than others. It is treatable. if the test comes back negative there is nothing else to do. If the test result is positive we will treat you with 2 antibiotics and a medication to decrease the acid in your stomach (PPI) for 2 weeks. Two weeks after you have completed the treatment we will retest you to make sure the overgrowth has resolved. Patient Instructions: Process for specimen collection and reason for testing was explained to the patient. Specimen collection. Patient instructed to take a deep breath and then exhale into the blue bag, filling it up as much as possible. Patient instructed to drink a mixture of water and the artificial sweetener with a straw. A 15 minute wait period was observed. Patient instructed to take a deep breath and then exhale into the pink bag, filling it up as much as possible.?? Coding Level of Care Code Est Pt Level 1 (76212) Diagnoses GERD (gastroesophageal reflux disease) K21.9 Abdominal pain R10.9
--- OUTSIDE RECORDS SUMMARY | 2024-12-01 17:50 | XMS_ITS | Referral Summary ---
Author Organization [facility] Address [address] [place] [address] Care Team Providers Care Footwear Sales Representative Name Role Phone Kenia Wiggins Primary Care Provider + [phone] Allergies Active Allergy Reactions Criticality Noted Date [...] BCBS OUT OF STATE PPO Care Teams Footwear Sales Representative Relationship Specialty Start Date End Date Kenia Wiggins [address] [place] [phone] PCP - General Sports Medicine 10/18/19
--- OUTSIDE RECORDS SUMMARY | 2024-12-01 17:50 | XMS_ITS | Clinical Summary ---
Author Organization [facility] Address [address] [place] [address] Care Team Providers Care Casket Trimmer Name Role Phone Kenia Wiggins Primary Care Provider + [phone] Allergies Active Allergy Reactions Criticality Noted Date [...] BCBS OUT OF STATE PPO Care Teams Casket Trimmer Relationship Specialty Start Date End Date Kenia Wiggins [address] [place] [phone] (work) PCP - General Sports Medicine 10/18/19
--- OUTSIDE RECORDS SUMMARY | 2024-12-01 17:50 | XMS_ITS | Clinical Summary ---
Author Organization [facility] Address [address] [place] [address] Care Team Providers Care Avionics Repair Technician Name Role Phone Unavailable Primary Care Provider [...]
--- OUTSIDE RECORDS SUMMARY | 2024-12-01 17:50 | XMS_ITS | Data Portability ---
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 Lab lipid panel, serum 2024 025 [facility], [address] [place] [address], [address], 5 15:32:27 AST/SGOT (aspartate aminotrans ferase), serum or plasma 2024 025 [facility], [address] [place] [address], [address], 5 10:06:21 ALT (alanine aminotrans ferase), serum or plasma 2024 025 [facility], [address] [place] [address], [address], 5 10:06:21 CK (creatine kinase), total, serum 2024 025 [facility], [address] [place] [address], [address], 5 10:06:21 BMP, serum or plasma 2024 025 [facility], [address] [place] [address], [address], 5 10:06:21 lipid panel, serum [address], [address], 4 14:04:14 CK (creatine kinase), total, serum [address], [address], 4 14:04:14 ALT (alanine aminotrans ferase), serum or plasma [address], [address], 4 14:04:14 AST/SGOT (aspartate aminotrans ferase), serum or plasma [address], [address], 4 14:04:14 BMP, serum or plasma [address], [address], 4 14:04:14 magnesium, serum or plasma [address], [address], 4 14:04:14 TSH, serum or plasma [address], [address], 4 14:04:14 Referral None recorded. Procedures None recorded. Surgeries None recorded. Imaging electrocar diogram 2023 024 LORETTA In-Office Order, Internal Use Only DO Not Attach Compendium DO Not Attach Compendium, Do Not Delete/merge, [id number] 11:21:19 electrocar diogram 2023 rwholey In-Office Order, Internal Use Only DO Not Attach Compendium DO Not Attach Compendium, Do Not Delete/merge, [id number] 14:04:14 monitoring analyst 2023 DILLEY [employer], [address] [facility], [address], [place], [address], 10:45:12 US, echocardio gram, transthora cic, complete, w/ color flow - 2D Color-flow and Doppler with contrast if clinically indicated according to protocol. 2023 LORETTA Not available 15:02:48 exercise stress test 2023 [facility] ([facility]), [address] [place] [address], [address], 12:11:15 Medication Orders diltiazem ER 120 mg capsule,24 hr,extende d release 2023 DILLEY [id number], [address] [place], [address], 11:13:15 Patient TargetsNo targets recorded. Patient Instructions Encounter Date Encounter Id Patient Instructions Last Modified By Organization Details Last Modified Time 05/04/2024 [id number] palpitations: care instructions [email or web address] Not available 05/04/2024 14:04:14 high blood pressure: care instructions rwholey Not available 05/04/2024 14:04:14 learning about high blood pressure rwholey Not available 05/04/2024 14:04:14 shortness of breath: care instructions rwholey Not available 05/04/2024 14:04:14 06/02/2024 [id number] palpitations: care instructions [email or web address] Not available 06/02/2024 17:14:23 PLACED A 3 DAY ZIO XT MONITOR FOR PALPITATIONS. ALL QUESTIONS ANSWERED. [email or web address] Not available 06/02/2024 14:04:40 10/04/2024 [id number] high blood pressure: care instructions Not available [...] DO Not Attach Compendium, Do Not Delete/merge, [id number] 05/04/2024 09:02:55 05/04/2005/04/2024 elect rocar diogr am No observ ation record ed. BARCODE Not Available 2023 12:33:22 06/09/20 24 06/09/2024 cardi ac monit or No observ ation record ed. gharding [employer] [address] [place] [address], [address], 07/01/2024 15:45:51 06/20/20 24 06/13/2024 exerc polly molina s test No observ ation record ed. [facility] (Central Scheduling For [facility]) [address] [place] [address], [address], 06/20/2024 14:49:24 06/29/2006/22/2024 US, echoc ardio gram, trans thora cic, compl ete, w/ color flow No observ ation record ed. gharding Not Available 2023 15:02:58 07/07/20 elect rocar diogr am No observ ation record ed. [email or web address] In-Office Order Internal Use Only DO Not Attach Compendium DO Not Attach Compendium, Do Not Delete/merge, [id number] 07/07/2024 09:53:38 07/07/20 24 07/07/2024 elect rocar diogr am No observ ation record ed. BARCODE Not Available 2023 16:51:27 07/11/2006/22/2024 US, echoc ardio gram, trans thora cic, compl ete, w/ color flow No observ ation record ed. [email or web address] Not Available 2023 12:02:41 08/14/20 24 06/13/2024 exerc ise stres s test No observ ation record ed. [facility] ([facility] Scheduling For [facility]) [address] [place] [address], [address], 08/14/2024 09:24:21 Result Notes None recorded. Problems Name Problem SNOMED Code Status Onset Date Resolution Date Notes Provider Name and Address Organization Details Recorded Time Mixed hyperlipidem ia 604007033 Active 2023 Jacque gregory [facility] 11:43:56 Benign essential hypertension 7808101 Active 2023 Jacque gregory [facility] 4 11:43:57 Irritable bowel syndrome 93615829 Active 2023 Yelitza greogry [facility] 15:01:12 Chronic hwrc-TZCSR-2 9 syndrome 8872943654 Active 2023 Yelitza gregory [facility] 4 15:01:12 Bipolar disorder 48305714 Active 2023 Yelitza gregory [facility] 15:01:12 Asthma 871303125 Active 2023 Yelitza gregory [facility] 4 15:01:12 Generalized anxiety disorder 09560483 Active 2023 Yelitza Estrada [facility] 15:01:12 Osteoarthrit is of knee 655913421 Active 2023 Yelitza gregory [facility] 4 15:01:12 Low back pain 458040614 [facility] 15:01:13 Attention deficit hyperactivit y disorder, predominantl y inattentive type 44327809 [facility] 15:01:13 Autism spectrum disorder 55203262 [facility] 15:01:13 Postural orthostatic tachycardia syndrome 760236966 [facility] 4 15:01:13 Migraine 40536445 [facility] 4 15:01:13 Posttraumati c stress disorder 86440924 [facility] 4 15:01:13 Essential hypertension 12724500 [facility] 4 15:01:13 Dyslexia 88827933 [facility] 4 15:01:13 Hypermobilit y of joint 810600739 Active 2023 Yelitza Estrada [facility] 4 15:01:13 Hiatal hernia 17027809 [facility] 15:01:13 Gender dysphoria 99751511 Active 2023 Yelitza Estrada [facility] 15:01:13 Problem Notes None recorded. Procedures Surgical History Date Name Laterality Status Provider Name and Address Organization Details Recorded Time Gallbladder Surgery completed [facility] 05/04/2024 09:02:35 Other Surgeries completed [facility] 05/04/2024 09:02:35 Pyloric Stenosis Repair completed Irena Wilkerson [facility] 05/04/2024 09:18:48 Imaging Results Imaging Date Name Status LastModified by Organization Details LastModified Time 05/04/2024 electrocardiogram completed In-Offi ce Order Internal Use Only DO Not Attach Compendium DO Not Attach Compendium, Do Not Delete/merge, [id number] 05/04/2024 09:02:55 05/04/2024 electrocardiogram completed [facility] Informa tion not available 05/04/2024 12:33:22 06/09/2024 monitoring analyst completed gharding [employer] [address] [place] [address], [address], 07/01/2024 15:45:51 06/13/2024 exercise stress test completed [facility] ([facility]) [address] [place] [address], [address], 06/20/2024 14:49:24 06/22/2024 US, echocardiogram, transthoracic, complete, w/ color flow completed Information not available 06/29/2024 15:02:58 07/07/2024 electrocardiogram completed [email or web address] In-Offi ce Order Internal Use Only DO Not Attach Compendium DO Not Attach Compendium, Do Not Delete/merge, [id number] 07/07/2024 09:53:38 07/07/2024 electrocardiogram completed [facility] Informa tion not available 07/07/2024 16:51:27 06/22/2024 US, echocardiogram, transthoracic, complete, w/ color flow completed [email or web address] Information not available 07/11/2024 12:02:41 06/13/2024 exercise stress test completed gharding [facility] ([facility] Scheduling For [facility]) [address] [place] [address], [address], 08/14/2024 09:24:21 Procedure Notes None recorded. Medical Equipment None Reported. Allergies Allergen ID Allergen Name Allergen Category Reaction Reaction Severity Criticality Documentation Date Start Date Code Code System Note Provider Name and Address Organization Details Recorded Time 046478 Substance with sulfonami de structure and antibacte rial mechanism of action (substanc e) medicatio n other Not available Not available 05/04/2024 09742 8003 SNOMED Irena gregory STELL[facility] 4 09:01:10 773071 house dust allergeni c extract environme nt,medica tion respirato ry distress Not available Not available 05/04/2024 06038 9 RxNorm Irena gregory [facility]LL[facility] 4 09:01:10 Medications Name Sig Start Date [...] Address Organization Details Last Updated DateTime 4 135350. 28 g 31.5 kg/m2 190.5 cm 98 % 98 % 72 /min 136 mm[Hg] 80 mm[Hg] 134 mm[Hg] 78 mm[Hg] Irena Wilkerson [facility]. 09:23:37 Date Recorded Body height Body mass index (BMI) Body weight Heart rate Systolic blood pressure Diastolic blood pressure Provider Name and Address Organization Details Last Updated DateTime 4 190.5 cm 32.7 kg/m2 864744. 2 g 68 /min 110 mm[Hg] 60 mm[Hg] Dora Amanda [facility]. 4 10:03:50 Date Recorded Body height Provider Name an d Address Organization Details Last Updated DateTime 10/04/2024 190.5 cm Shira Kumar [facility] 10/04/2024 09:26:23 Social History Question Answer Notes LastModified by Organizat ion Details LastModified Time Tobacco Smoking Status Never Smoker Irena gregory [facility]. 05/04/2024 09:02:32 Do You Have An Advance [...] Anxious, Or Unable To Sleep At Night)? [id number] Information not available 05/04/2024 Do You Use [...] Medical History Condition Response Seizure Disorder N High Blood Pressure (Hypertension) Y Eye Problems (Glaucoma, Retinopathy, Mac ular Degeneration) N AFib (Atrial Fibrillation) N Depression Y Kidney Disease/Stones N High Cholesterol (Hyperlipidemia) Y Sickle Cell Anemia N CHF (Congestive Heart Failure) N Memory Loss (Dementia) N Mental Illness (Bi-Polar Disorder, Schiz ophrenia) Y Hearing Loss N Heart Attack (Myocardial Infarction) N Cancer N Liver Disease/Hepatitis N Carotid Disease N Implantable Pacemaker/Defibrillator/AICD N Stroke/TIA N Aortic Aneurysm N Bleeding Problems N Arthritis Rheumatoid Y Syncope or Passing Out Y HIV N Diabetes (Insulin Dependent) N Gallbladder Disease/Stones Y Anxiety Y Edema (Swelling) N Anesthetic Complication N Substance Abuse (Alcohol, Drug) N Gastrointestinal Disease (IBS, Gastritis , Ulcer, Acid Reflux) Y Blood Clot (Deep Vein Thrombosis) N Anemia N Neuropathy (Numbness, Pain, Tingling) Y Chronic [...] SNOMED-CT Code Diagnosis ICD10 Code Diagnosis Note [id number] Davi Bangura MD [facility] [address] [phone] 05/04/2024 08:58:40 05/04/2024 10:24:40 Palpitations 08097921 R00.2 Dyspnea 840134575 R06.02 Benign ess ential hypertension 7895437 I10 Mixed hyperlipidemia 267 271066 E78.2 [id number] Davi Bangura MD [facility] [address], [address] [place] [address] 06/02/2024 13:41:22 06/02/2024 14:39:14 Palpitations 69077144 R00.2 [id number] Lauren Diaz PA-C [facility] [address] [address] 07/07/2024 09:49:53 07/07/2024 10:59:34 Benign essential hypertension 0521848 I10 INCREASE diltiazem to 120mg twice daily Chronic po st-COVID-19 syndrome 0525046498 U09.9 Mixed hyperlipidemia 267 014914 E78.2 Postural o rthostatic tachycardia syndrome 547097010 G90.A Recommend daily fluid intake to 3L of fluids dailyRecom mend daily salt intake to 3.2-4.8g dailyRecom mend wearing compressio n tights daily as tolerated Palpitations 76906377 R0 0.2 INCREASE diltiazem to 120mg twice daily Postural dizziness 21705 7008 R42 Fatigue 30223699 R53.83 [id number] Lauren Diaz PA-C [facility] [address] [facility] [address] [place] [address] 10/04/2024 09:16:58 10/04/2024 11:52:02 Postural orthostatic tachycardia syndrome 838276526 G90.A Mixed hyperlipidemia 267 043208 E78.2 Benign ess ential hypertension 9529553 I10 [address]-COVID-19 syndrome 2820425185 U09.9 Palpitations 82299972 R0 0.2 Lightheadedness 60107737 8 R42 Dyspnea on exertion 6084 5006 R06.09 Chest pain 64353540 R07. 9 Health Concerns Section Related Observation LastModified by Organization Detai ls LastModified Time None Recorded Concern Status LastModified by Organization Details LastModified Time None Recorded Advance Directives Directive N: Payers Encounter Date Sequence Insurance Name Policy Number Policy Park Covered Member ID Park Member ID Guarantor Name 05/04/2024 1 [facility] Radhamaria teresa Kirby [id number] [employer] teresa Kirby 06/02/2024 1 [facility] Radha Kirby [id number] Radham[employer] teresa Kirby 07/07/2024 1 [facility] Radhamaria teresa Kirby [id number] Radhamaria teresa Kirby 10/04/2024 1 [facility] Radhamaria teresa Kirby [id number] Radhamaria teresa Kirby Notes Date Note Type [...] ----US, echocardiogram, transthoracic, complete, w/ color flow [id number] stress test 65-46-4511sui xt/zio monitor meterman continuous ambulatory monitoring analyst [id number] 03/01/24 LIBERTAD Santana-Tamara [address] [place] [address], [phone], [facility]. 07/07/2024 11:18:19 10/04/2024 text/html Radha Kirby is presenting to the office for a telemedicine follow up appointment. She has a past medical history of HTN, HLD, chronic covid syndrome, POTS. Her last appointment in our office was on 07/07/24 with [facility]. At this visit we discussed that Radha [...] ----Lipid (03/01/24)Stress (06/13/24)Echo (06/22/24)Monitor (06/09/24) LIBERTAD Santana-Tamara [address] [place] [address], [phone], [facility]. 10/04/2024 10:16:52 OBGyn Episode No OBEpisode recorded.
--- OUTSIDE RECORDS SUMMARY | 2024-12-01 17:50 | XMS_ITS | Data Portability ---
Author Organization [place] [facility], Main Office Address [address] [place] [address] Assessment No assessment recorded. Plan of Treatment Reminders Order Date Submit Date Provider Last Modified By Organization Details Last Modified Time Details Appointments None recorded. Lab VIKY (antinuclea r antibodies) screen, ifa, serum 2022 023 [facility], [address] [place] [address], [id number], 3 04:48:46 erythrocyte sedimentati on rate by westergren method 2022 023 [facility], [address] [place], [address], 3 04:48:45 C-reactive protein, quantitativ e, serum or plasma 2022 023 [facility], [address] [place] [address], [id number], 3 04:48:47 rf (rheumatoid factor), serum 2022 023 [facility], [address] [place], [address], 3 04:48:46 urinalysis, dipstick 2022 023 [facility] Main Office, [address] [place], [address], 3 16:08:08 CBC w/ auto diff 2022 023 [facility], [address] [place], [address], 3 04:48:45 CMP, serum or plasma 2022 023 [facility], [address] [place], [address], 3 04:48:44 lipid panel, serum 2022 023 [facility], [address] [place], [address], 3 04:48:43 TSH, serum or plasma 2022 023 [facility], [address] [place], [address], 3 04:48:48 Referral None recorded. Procedures None recorded. Surgeries None recorded. Imaging None recorded. Medication Orders bupropion HCl XL 300 mg 24 hr tablet, extended release 2023 024 [id number], [address] [facility], [place], [address], 4 13:27:53 Patient TargetsNo targets recorded. Patient InstructionsNo instructions recorded. Reason for Referral None Reported. Results Created Date Observation Date Name Description Value Unit Range Abnormal Flag Note LastModifiedBy Organization Detail LastModifiedTime 03/30/2003/30/2023 urina lysis , dipst ick Leukocytes negati ve Not Available Main Office [address] [place], [address], 03/30/2023 14:39:52 03/30/2003/30/2023 urina lysis , dipst ick Nitrite negati ve Not Available Main Office [address] [place], [address], 03/30/2023 14:39:52 03/30/20 23 03/30/2023 urina lysis , dipst ick Protein negati ve Not Available Main Office [address] [place], [address], 03/30/2023 14:39:52 03/30/20 23 03/30/2023 urina lysis , dipst ick Blood negati ve Not Available Main Office [address] [place], [address], 03/30/2023 14:39:52 03/30/20 23 03/30/2023 urina lysis , dipst ick Ketone negati ve Not Available Main Office [address] [place], [address], 03/30/2023 14:39:52 03/30/2003/30/2023 urina lysis , dipst ick Glucose negati ve Not Available Main Office [address] [place], [address], 03/30/2023 14:39:52 04/01/20 23 04/02/2023 LIPID PANEL , STAND LAZARO cholesterol, total 263 mg/dL <200 high Not Available [facility] [address], [address], 04/02/2023 06:54:19 04/01/20 23 04/02/2023 LIPID PANEL , STAND LAZARO HDL cholesterol 78 mg/dL > or = 50 normal Not Available [facility] [address], [place], [address], 04/02/2023 06:54:19 04/01/20 23 04/02/2023 LIPID PANEL , STAND LAZARO triglyceride s 110 mg/dL <150 normal Not Available [facility] [address], [address], 04/02/2023 06:54:19 04/01/20 23 04/02/2023 LIPID PANEL [...] 310(1 9): 2061- 206 (http ://ed ucati on.[employer]/f aq/FA Q164) Not Available [facility] [place] [facility] [address], [place], [address], 04/02/2023 06:54:19 04/01/20 23 04/02/2023 LIPID PANEL , STAND LAZARO chol/HDLC ratio 3.4 (calc ) <5.0 normal Not Available [facility] [place] [facility] [address], [place], [address], 04/02/2023 06:54:19 04/01/20 23 04/02/2023 LIPID PANEL , STAND LAZARO non HDL cholesterol 185 mg/dL _(lamine c) <130 high For patie nts with diabe sandip plus 1 major ASCVD risk facto r, treat ing to a non-H DL-C goal of <100 mg/dL (LDL- C of <70 mg/dL ) is consi dered a thera pemercy c optio n. Not Available [facility] [place] [facility] [address], [place], [address], 04/02/2023 06:54:19 04/01/2004/02/2023 COMPR EHENS IVONNE METAB OLIC PANEL glucose 85 mg/dL 65-99 normal Fasti ng refer ence inter jeanne Not Available [facility] [place] [facility] [address], [place], [address], 04/02/2023 06:54:21 04/01/20 23 04/02/2023 COMPR EHENS IVONNE METAB OLIC PANEL urea nitrogen (BUN) 13 mg/dL 7-25 normal Not Available [facility] [address] [place], [place], [address], 04/02/2023 06:54:21 04/01/20 23 04/02/2023 COMPR EHENS IVONNE METAB OLIC PANEL creatinine 0.82 mg/dL 0.50-0 .97 normal Not Available [facility] [address] [place], [place], [address], 04/02/2023 06:54:21 04/01/20 23 04/02/2023 COMPR EHENS [...] kdoqi /gfr% 5Fcal culat or Not Available [facility] [address], [place], [address], 04/02/2023 06:54:21 04/01/20 23 04/02/2023 COMPR EHENS IVONNE METAB OLIC PANEL BUN/creatini ne ratio NOT APPLIC ABLE (calc ) 6-22 Not Available [facility] [address] [place], [place], [address], 04/02/2023 06:54:21 04/01/20 23 04/02/2023 COMPR EHENS IVONNE METAB OLIC PANEL sodium 139 mmol/ L 135-14 6 normal Not Available [facility] [address] [place], [place], [address], 04/02/2023 06:54:21 04/01/20 23 04/02/2023 COMPR EHENS IVONNE METAB OLIC PANEL potassium 4.5 mmol/ L 3.5-5. 3 normal Not Available [facility] [address], [place], [address], 04/02/2023 06:54:21 04/01/2004/02/2023 COMPR EHENS IVONNE METAB OLIC PANEL chloride 104 mmol/ L 98-110 normal Not Available [facility] [address], [place], [address], 04/02/2023 06:54:21 04/01/2004/02/2023 COMPR EHENS IVONNE METAB OLIC PANEL carbon dioxide 29 mmol/ L 20-32 normal Not Available [facility] [address], [place], [address], 04/02/2023 06:54:21 04/01/2004/02/2023 COMPR EHENS IVONNE METAB OLIC PANEL calcium 9.6 mg/dL 8.6-10 .2 normal Not Available [facility] [address], [place], [address], 04/02/2023 06:54:21 04/01/2004/02/2023 COMPR EHENS IVONNE METAB OLIC PANEL protein, total 6.6 g/dL 6.1-8. 1 normal Not Available [facility] [address], [place], [address], 04/02/2023 06:54:21 04/01/2004/02/2023 COMPR EHENS IVONNE METAB OLIC PANEL albumin 4.3 g/dL 3.6-5. 1 normal Not Available [facility] [address], [place], [address], 04/02/2023 06:54:21 04/01/20 23 04/02/2023 COMPR EHENS IVONNE METAB OLIC PANEL globulin 2.3 g/dL_ (calc ) 1.9-3. 7 normal Not Available [facility] [address], [place], [address], 04/02/2023 06:54:21 04/01/20 23 04/02/2023 COMPR EHENS IVONNE METAB OLIC PANEL albumin/glob ulin ratio 1.9 (calc ) 1.0-2. 5 normal Not Available [facility] [address], [place], [address], 04/02/2023 06:54:21 04/01/20 23 04/02/2023 COMPR EHENS IVONNE METAB OLIC PANEL bilirubin, total 0.3 mg/dL 0.2-1. 2 normal Not Available [facility] [address], [place], [address], 04/02/2023 06:54:21 04/01/20 23 04/02/2023 COMPR EHENS IVONNE METAB OLIC PANEL alkaline phosphatase 56 U/L 31-125 normal Not Available [facility] [address], [place], [address], 04/02/2023 06:54:21 04/01/20 23 04/02/2023 COMPR EHENS IVONNE METAB OLIC PANEL AST 13 U/L 10-30 normal Not Available [facility] [address], [place], [address], 04/02/2023 06:54:21 04/01/20 23 04/02/2023 COMPR EHENS IVONNE METAB OLIC PANEL ALT 26 U/L 6-29 normal Not Available [facility] [address], [place], [address], 04/02/2023 06:54:21 04/01/2004/02/2023 SED RATE BY MODIF IED WESTE RGREN sed rate by modified westergren 2 mm/h < or = 20 normal Not Available [facility] [place] [facility] [address], [place], [address], 04/02/2023 04:48:45 04/01/20 23 04/02/2023 CBC (INCL UDES DIFF/ PLT) white blood cell count 5.9 thous and/u L 3.8-10 .8 normal Not Available [facility] [place] [facility] [address], [place], [address], 04/02/2023 04:48:45 04/01/20 23 04/02/2023 CBC (INCL UDES DIFF/ PLT) red blood cell count 4.88 zia on/uL 3.80-5 .10 normal Not Available [facility] [address], [place], [address], 04/02/2023 04:48:45 04/01/20 23 04/02/2023 CBC (INCL UDES DIFF/ PLT) hemoglobin 14.2 g/dL 11.7-1 5.5 normal Not Available [facility] [place] [facility] [address], [place], [address], 04/02/2023 04:48:45 04/01/2004/02/2023 CBC (INCL UDES DIFF/ PLT) hematocrit 42.3 % 35.0-4 5.0 normal Not Available [facility] [address], [place], [address], 04/02/2023 04:48:45 04/01/20 23 04/02/2023 CBC (INCL UDES DIFF/ PLT) MCV 86.7 fL 80.0-1 00.0 normal Not Available [facility] [place] [facility] [address], [place], [address], 04/02/2023 04:48:45 04/01/20 23 04/02/2023 CBC (INCL UDES DIFF/ PLT) MCH 29.1 pg 27.0-3 3.0 normal Not Available [facility] [place] [facility] [address], [place], [address], 04/02/2023 04:48:45 04/01/2004/02/2023 CBC (INCL UDES DIFF/ PLT) MCHC 33.6 g/dL 32.0-3 6.0 normal Not Available [facility] [place] [facility] [address], [place], [address], 04/02/2023 04:48:45 04/01/20 23 04/02/2023 CBC (INCL UDES DIFF/ PLT) RDW 12.8 % 11.0-1 5.0 normal Not Available [facility] [place] [facility] [address], [place], [address], 04/02/2023 04:48:45 04/01/20 23 04/02/2023 CBC (INCL UDES DIFF/ PLT) platelet count 268 thous and/u L 140-40 0 normal Not Available [facility] [place] [facility] [address], [place], [address], 04/02/2023 04:48:45 04/01/2004/02/2023 CBC (INCL UDES DIFF/ PLT) MPV 9.7 fL 7.5-12 .5 normal Not Available [facility] [place] [facility] [address], [place], [address], 04/02/2023 04:48:45 04/01/20 23 04/02/2023 CBC (INCL UDES DIFF/ PLT) absolute neutrophils 3688 cells /uL 1500-7 800 normal Not Available [facility] [place] [facility] [address], [place], [address], 04/02/2023 04:48:45 04/01/20 23 04/02/2023 CBC (INCL UDES DIFF/ PLT) absolute lymphocytes 1587 cells /uL 850-39 00 normal Not Available [facility] [place] [facility] [address], [place], [address], 04/02/2023 04:48:45 04/01/20 23 04/02/2023 CBC (INCL UDES DIFF/ PLT) absolute monocytes 413 cells /uL 200-95 0 normal Not Available [facility] [place] [facility] [address], [place], [address], 04/02/2023 04:48:45 04/01/20 23 04/02/2023 CBC (INCL UDES DIFF/ PLT) absolute eosinophils 171 cells /uL 15-500 normal Not Available [facility] [place] [facility] [address], [place], [address], 04/02/2023 04:48:45 04/01/20 23 04/02/2023 CBC (INCL UDES DIFF/ PLT) absolute basophils 41 cells /uL 0-200 normal Not Available [facility] [place] [facility] [address], [place], [address], 04/02/2023 04:48:45 04/01/20 23 04/02/2023 CBC (INCL UDES DIFF/ PLT) neutrophils 62.5 % normal Not Available [facility] [place] [facility] [address], [place], [address], 04/02/2023 04:48:45 04/01/20 23 04/02/2023 CBC (INCL UDES DIFF/ PLT) lymphocytes 26.9 % normal Not Available [facility] [place] [facility] [address], [place], [address], 04/02/2023 04:48:45 04/01/20 23 04/02/2023 CBC (INCL UDES DIFF/ PLT) monocytes 7.0 % normal Not Available [facility] [place] [facility] [address] [place], [place], [address], 04/02/2023 04:48:45 04/01/20 23 04/02/2023 CBC (INCL UDES DIFF/ PLT) eosinophils 2.9 % normal Not Available [facility] [place] [facility] [address] [place], [place], [address], 04/02/2023 04:48:45 04/01/20 23 04/02/2023 CBC (INCL UDES DIFF/ PLT) basophils 0.7 % normal Not Available [facility] [place] [facility] [address] [place], [place], [address], 04/02/2023 04:48:45 04/01/20 23 04/05/2023 VIKY SCREE [...] bull purpo ses only. ) Not Available [facility] [place] [facility] [address], [address], 04/05/2023 14:35:53 04/01/20 23 04/02/2023 RHEUM ATOID FACTO R rheumatoid factor <14 IU/mL <14 normal Not Available [facility] [place] [facility] [address], [place], [address], 04/02/2023 13:30:15 04/01/20 23 04/02/2023 C-NIRU CTIVE PROTE IN C-reactive protein 1.6 mg/L <8.0 normal Not Available [facility] [place] [facility] [address], [place], [address], 04/02/2023 13:30:16 04/01/20 23 04/02/2023 TSH TSH 2.85 mIU/L normal Refer ence Range > or = 20 Years 0.40- 4.50 Pregn kelly Range s First trime ster 0.26- 2.66 Secon d trime ster 0.55- 2.73 Third trime ster 0.43- 2.91 Not Available [facility] [address], [place], [address], 04/02/2023 06:54:28 Result Notes None recorded. Problems Name Problem SNOMED Code Status Onset Date Resolution Date Notes Provider Name and Address Organization Details Recorded Time Gender dysphoria 04767775 Active 2022 Not Available [facility] 3 12:28:14 Bipolar I disorder 254104714 Active 2022 Not Available [facility] 3 12:28:14 Major depressive disorder 345220645 Active 2022 Not Available [facility] 3 12:28:14 Generalize d anxiety disorder 31706071 Active 2022 Not Available [facility] 3 12:28:14 Chronic post-traum atic stress disorder 285365168 Active 2022 Not Available [facility] 3 12:28:14 Attention deficit hyperactiv ity disorder 665539030 Active 2022 Not Available [facility] 3 12:28:14 Autism spectrum disorder 49637761 Active 2022 Not Available [facility] 3 12:28:14 Dyslexia 65699805 Active 2022 Not Available [facility] 3 12:28:14 Insomnia 974558787 Active 2022 Not Available [facility] 3 12:28:14 Eating disorder in remission 596464090 Active 2022 Not Available [facility] 3 12:28:14 Vitamin D deficiency 31545388 Active 2022 Not Available [facility] 3 12:28:14 Irritable bowel syndrome 08176360 Active 2022 Not Available [facility] 3 12:28:14 Delayed gastric emptying 498862544 Active 2022 Not Available [facility] 3 12:28:14 Gastroesop hageal reflux disease 258564791 Active 2022 Not Available [facility] 3 12:28:14 Hiatal hernia 54159927 Active 2022 Not Available [facility] 3 12:28:14 Essential hypertensi on 16308530 Active 2022 Not Available [facility] 3 12:28:14 Post-acute COVID-19 7272286364 Active 2022 Not Available [facility] 3 12:28:14 Asthma 337849033 Active 2022 Not Available [facility] 3 12:28:14 Osteoarthr itis of knee 853288763 Active 2022 Not Available [facility] 3 12:28:14 Achilles tendinitis 76076318 Active 2022 Not Available [facility] 3 12:28:14 Hypermobil ity syndrome 54477169 Active 2022 Not Available [facility] 3 12:28:14 Congenital pes planus 30708593 Active 2022 Not Available [facility] 3 12:28:14 Chronic migraine without aura 3122276710958 05 Active 2022 Not Available [facility] 3 12:28:14 Problem Notes None recorded. Procedures Surgical History Date Name Laterality Status Provider Name and Address Organization Details Recorded Time 09/21/19 20 cholecystectomy completed MANUELA ROBERTS PA-C [address] [place] [address], [address], [facility] 03/30/2023 15:07:46 Imaging Results [...] anaphylax is Not available Not available 03/30/2023 07151 [id number] SNOMED Not Available Not Available Not [...] /min 98 % 98 % 31.9 kg/m2 448945. 28 g 110 mm[Hg] 72 mm[Hg] Judi Worrell [facility] 14:51:25 Date Recorded Body height Provider Name an d Address Organization Details Last Updated DateTime 01/11/2024 189.23 cm LIBERTAD Lai [address] [place] [address], [address], [facility] 01/11/2024 13:13:15 Social History Question Answer Notes LastModified by Organizat ion Details LastModified Time Tobacco Smoking Status Never Smoker Judi gregory, [facility] 03/30/2023 14:48:52 What Is Your Level Of Alcohol Consumption? Occasional Information not available 03/30/2023 Are You Blind Or Do You Have Difficulty Seeing? No Information not available 03/30/2023 What Is Your Level Of Caffeine Consumption? Moderate Information not available 03/30/2023 What Type Of Buffer Operator Do You Use? None Information not available [...] In The Last 12 Month [employer] Threatened To Shut Off Services In Your [...] Anxious, Or Unable To Sleep At Night)? [id number] Information not available 03/30/2023 Do You Use [...] mL 08/05/2023 completed Miladys Flori gregory [place] [facility] 08/08/2023 18:35:35 Tdap 07/21/2024 completed Miladys gregory [place] [facility] 10/24/2024 09:54:26 COVID-19, mRNA, LNP-S, PF, 50 mcg/0.5 mL 10/22/2024 completed Miladys gregory [place] [facility] 10/24/2024 09:54:40 Past Encounters Encounter ID Performer Location Encounter Start Date Encounter Closed Date Diagnosis/Indication Diagnosis SNOMED-CT Code Diagnosis ICD10 Code Diagnosis Note [id number] Michoacano Alarcon MD Main Office [address] [place] [address] 03/30/2023 14:31:58 03/30/2023 15:57:42 Adult health examination 576502370 Z00.00 38 yo trans female with a complex medical history presenting today as a new patient for annual exam. She has many chronic conditions as listed below. However, most of them are currently stable. She is not fasting today, will put in orders to an outside quest for FBW. Asthma 957135544 J45.90 9 See above. Uses flovent and albuterol PRN. She is not seeing a pulmonolog ist. Vitamin D deficiency 347 40161 E55.9 Taking daily vitamin d. Stable under current management plan based on subjective and objective findings. Essential hypertension 13905192 I10 Taking lisinopril 20 mg daily. BP today is 110/72. Stable under current management plan based on subjective and objective findings. Gastroesop hageal reflux disease 439371974 K21.9 See above. Followed by GI. Taking omeprazole daily. Irritable bowel syndrome 39376940 K58.9 Patient has IBS primarily constipati on. She is in the process of getting worked up for other GI conditions with her GI specialist out of [facility]. She has a colonoscop y scheduled for later this week. Post-acute COVID-19 1119 182303 U09.9 Patient had covid 2+ years ago and is still experienci ng chronic respirator y symptoms. She reports persistent wheezing and shortness of breath. She is working on getting set up with a long covid specialist in [place]. Osteoarthr itis of knee 146326903 M17.9 Patient has chronic pain due to arthritis. Of note, her mother has RA. Will check an VIKY as well as inflammato ry markers to rule out an autoimmune inflammato ry cause of her symptoms. Hiatal hernia 68962607 K 44.9 See above. Delayed ga stric emptying 398071767 K30 See above. Hypermobil ity syndrome 42589734 M35.7 She would like to have genetic testing done in the future for evaluation of connective tissue disorders. Congenital pes planus 23 595940 Q66.50 She is getting custom orthotics later this week. Achilles tendinitis 1165 4001 M76.60 See above. Chronic mi graine without aura 7759921498 32958 G43.709 Currently is having 2-3 migraines per month. Stable under current management plan based on subjective and objective findings. Bipolar I disorder 18643 6008 F31.9 Seeing a therapist regularly but is not currently seeing a psychiatri st. She is taking bupropion 300 mg daily and buspar 15 mg BID with good effect. She also uses hydroxyzin e PRN for anxiety. She is looking to get set up with another psychiatri st in the future. Informatio n given today. Major depr essive disorder 524533899 F32.9 See above. Attention deficit hyperactivity disorder 206862283 F90.9 Not currently on medication . Stable under current management plan based on subjective and objective findings. Chronic post-traumatic stress disorder 620517019 F43.12 See above. Autism spe ctrum disorder 64584824 F84.0 Stable under current management plan based on subjective and objective findings. Generalize d anxiety disorder 74638965 F41.1 See above. Dyslexia 51104079 F81.0 Stable under current management plan based on subjective and objective findings. Gender dysphoria 3570630 9 F64.9 She is stable on hormone therapy. She is not currently seeing a specialist for management of hormones. Will manage hormones moving forward unless she requires dose adjustment s. Eating dis order in remission 134146911 F50.9 Stable under current management plan based on subjective and objective findings. Insomnia 938309912 G47.0 0 Stable under current management plan based on subjective and objective findings. [id number] Michoacano Alarcon MD Main Office [address] [place] [address] 01/11/2024 13:02:56 01/11/2024 16:42:34 Bipolar I disorder 697400168 F31.9 Seeing a therapist regularly but is not currently seeing a psychiatri st. She is taking bupropion 300 mg daily and buspar 15 mg BID with good effect. She also uses hydroxyzin e PRN for anxiety. She is looking to get set up with another psychiatri st but has recently moved to [place], [place] and is wait listed.She has switched her insurance to try to obtain a psychiatri st. 3-months of bupropion 300mg XL was prescribed today. Patient was informed that she needs to find a PCP and psychiatri st to take over care. Hypermobil ity of joint 527918003 R29.898 Patient reports she has hypermobil ity in her joints. She would like to be evaluated for possible EDS. Advised patient to call her insurance to find a seasoner . From there, she can seek a [...] Park Member ID Guarantor Name 03/30/2023 1 [facility] [employer] TYPE I (HMO) [id number] Radha Kirby [id number] Januarymaria teresa Kirby 01/11/2024 1 [facility] [employer] TYPE I (HMO) [id number] Radha Mirta [id number] Mirta Notes Date Note Type Note Provider Name and Address Organization Details Recorded Time 03/30/2023 text/html 38 yo trans female with a complex medical history presenting today as a new patient for annual exam. Michoacano Alarcon MD [address] [place], [address], [facility] 04/01/2023 08:40:43 01/11/2024 text/html 38 yo trans female with a complex medical history presenting today for a medication follow up. Michoacano Alarcon MD [address] [place], [address], [facility] 01/11/2024 13:48:52 OBGyn Episode No OBEpisode recorded.
== END 2024-12-01 14:36 | disposition home or self-care (01) ==
LOC: HO.HGI 14:02
PROVIDERS: PCP Family Medicine; Visit Provider Nurse Practitioner Family
DX: K21.9 Gastro-esophageal reflux disease without esophagitis (principal); R10.9 Unspecified abdominal pain

== ENCOUNTER 2024-12-01 14:01 | Outpatient (REF) | payer MEDICAID, SELFPAY ==
--- OUTSIDE RECORDS SUMMARY | 2024-12-02 16:31 | XMS_ITS | Referral Summary ---
Author Organization [facility] Address [address] [place] [address] Care Team Providers Care Director Smb Sales Name Role Phone Kenia Wiggins Primary Care Provider + [phone] Allergies Active Allergy Reactions Criticality Noted Date [...] [employer] OUT OF STATE PPO Care Teams Director Smb Sales Relationship Specialty Start Date End Date Kenia Wiggins [address] [place] [phone] PCP - General Sports Medicine 10/18/19
--- OUTSIDE RECORDS SUMMARY | 2024-12-02 16:31 | XMS_ITS | Clinical Summary ---
Author Organization [facility] Address [address] [place] [address] Care Team Providers Care Metal Engineering Process Worker Name Role Phone Kenia Wiggins Primary Care Provider + [phone] Allergies Active Allergy Reactions Criticality Noted Date [...] BCBS OUT OF STATE PPO Care Teams Metal Engineering Process Worker Relationship Specialty Start Date End Date Kenia Wiggins [address] [place] [address] [phone] (work) PCP - General Sports Medicine 10/18/19
--- OUTSIDE RECORDS SUMMARY | 2024-12-02 16:31 | XMS_ITS | Clinical Summary ---
Author Organization [facility] Address [address] [place] [address] Care Team Providers Care Hr Receptionist Name Role Phone Unavailable Primary Care Provider [...]
[2024-12-03 15:17] LABS: H Pylori Breath Test Negative (Negative)
== END 2024-12-01 14:02 | disposition home or self-care (01) ==
LOC: HO.LNP 14:01
PROVIDERS: PCP Family Medicine; Visit Provider Nurse Practitioner Family
DX: K21.9 Gastro-esophageal reflux disease without esophagitis (principal); R10.9 Unspecified abdominal pain
CPT/HCPCS: 83013; 99211

== ENCOUNTER 2025-01-10 15:20 | Emergency (ER) | payer MEDICAID, SELFPAY ==
--- NOTE | ~2025-01-10 | CT_ITS ---
EXAMINATION: CT CERVICAL SPINE WITHOUT CONTRAST CLINICAL INFORMATION: Posterior neck pain COMPARISON: None available. TECHNIQUE: Axial 3 mm thin and reformatted 2 mm thin sagittal and coronal images of cervical spine were obtained. This CT examination was performed using dose optimization techniques as appropriate, variously including the following: *Automated exposure control *Adjustment of mA and/or kV according to patient size (this includes techniques or standardized protocols for targeted exams where dose is matched to indication/reason for exam; i.e. extremities or head) *Use of iterative reconstruction technique DLP 656. FINDINGS: There is reversal of cervical lordosis. There is mild dextroscoliosis The vertebral heights, alignment and disc heights are normal. The craniovertebral junction and the C1-C2 alignment is normal. There is no visible acute fracture, dislocation or subluxation seen. The prevertebral and paravertebral soft tissues are normal. The airway is widely patent. Lung apices are clear. Thyroid lobes are symmetrical and normal. CT/CT cervical spine wo IV con IMPRESSION: Reversal of cervical lordosis with mild dextroscoliosis without any visible acute fracture, dislocation or subluxation seen. Fleischner guidelines were followed. Electronically signed by: Natanael Peña MD 01/10/2025 04:51 PM EDT
--- NOTE | 2025-01-10 16:12 | ED.GENADULT ---
HPI - General Adult General Chief complaint: Neck Pain/Injury Stated complaint: Neck and shoulder pain Time Seen by Provider: 01/10/25 17:40 Source: patient Mode of arrival: ambulatory Limitations: no limitations History of Present Illness ED Provider: Serg Sanchez HPI narrative: 39 yold female with pmh of EDS presents to the ED for right sided neck pain radiating down right shoulder. Patient states she slept wrong on her right shoulder and right side of neck and woke up with the pain. Patient denies slurred speech, facial droop, loss of vision, dizziness, headache, nuasea, vomitting, headache, paralysis of extremities, recent trauma, photophobia, fever, or chills. Related Data Home Medications ?Medication ?Instructions ?Recorded ?Confirmed 5-hydroxytryptophan (5-HTP) 50 mg 50 mg PO BID 03/09/24 03/09/24 capsule albuterol sulfate 2 mg tablet 2 mg PO Q8H 03/09/24 03/09/24 atorvastatin 10 mg tablet 10 mg PO DAILY 03/09/24 03/09/24 bupropion HCl 300 mg 24 hr tablet, 300 mg PO QAM 03/09/24 03/09/24 extended release buspirone 15 mg tablet 15 mg PO BID 03/09/24 03/09/24 cetirizine 10 mg capsule (All Day 10 mg PO DAILY PRN 03/09/24 03/09/24 Allergy (cetirizine)) docusate sodium 100 mg capsule 100 mg PO BID 03/09/24 03/09/24 estradiol 2 mg tablet (Estrace) 2 mg PO DAILY 03/09/24 03/09/24 finasteride 1 mg tablet 1 mg PO DAILY 03/09/24 03/09/24 fluticasone propionate 44 1 puff inhalation BID 03/09/24 03/09/24 mcg/actuation HFA aerosol inhaler lisinopril 20 mg tablet 20 mg PO DAILY 03/09/24 03/09/24 medroxyprogesterone 2.5 mg tablet 2.5 mg PO DAILY 03/09/24 03/09/24 albuterol sulfate 90 mcg/actuation 2 puff inhalation Q4H 03/16/24 aerosol inhaler (Ventolin HFA) hydroxyzine HCl 50 mg tablet 50 mg PO BEDTIME 04/05/24 atomoxetine 60 mg capsule 60 mg PO DAILY 11/02/24 cholecalciferol (vitamin D3) 50 50 mcg PO DAILY 11/02/24 mcg (2,000 unit) capsule (Vitamin D3) diltiazem HCl 120 mg capsule,24 mg PO BID 11/02/24 hr,extended release (Tiadylt ER) lithium carbonate 300 mg tablet mg PO 11/02/24 spironolactone 50 mg tablet 50 mg PO DAILY 11/02/24 Previous Rx's ?Medication ?Instructions ?Recorded esomeprazole magnesium 40 mg 40 mg PO DAILY #30 caps 11/02/24 capsule,delayed release (Nexium) simethicone 125 mg capsule 125 mg PO BID-QID PRN abdominal 11/02/24 distention #30 caps famotidine 20 mg tablet 20 mg PO BID #56 tabs 12/19/24 cyclobenzaprine 10 mg tablet 10 mg PO TID PRN muscle spasm #21 01/10/25 tabs naproxen 500 mg tablet 500 mg PO BID PRN pain #14 tabs 01/10/25 Allergies Allergy/AdvReac Type Severity Reaction Status Date / Time Sulfa (Sulfonamide Allergy Anaphylaxis Verified 01/10/25 16:27 Antibiotics) Review of Systems Review of Systems: RIght sided neck pain/shoulder Yes all other systems are reviewed and are negative COUNTS INCLUDE 234 BEDS AT THE [facility] Past Medical History Medical History (Updated 01/12/25 @ 00:00 by Anshul Lagunas) GERD (gastroesophageal reflux disease) Gastritis Hiatal hernia IBS (irritable bowel syndrome) Surgical History (Updated 11/02/24 @ 09:08 by POLO Dewey) Hx of colonoscopy Hx laparoscopic cholecystectomy Status post left foot surgery Social History Social History Patient Tobacco Use Status: Never used Tobacco Advance Directives: No Advance Directives Information Provided: No Current occupational status: unemployed Physical Exam ED Vital Signs: Vital Signs - 24 hr 01/10/25 16:24 Temperature 98 F Pulse Rate 91 Respiratory Rate 16 Blood Pressure 170/99 H Pulse Oximetry 99 Oxygen Delivery Method Room Air BMI result Body Mass Index 32.0 Const General: cooperative, healthy appearing, comfortable, no acute distress, well developed, alert, awake and Physically active Orientation/consciousness: patient oriented x3 HENMT Head: Yes normal to inspection, Yes No palpable skull fracture present, Yes normocephalic, Yes atraumatic and Yes Acrocyanosis present Ears: hearing grossly normal bilaterally, external ears normal, TM's normal bilaterally, TM normal on the right, TM normal on the left, EAC's normal, mastoids normal and no periauricular adenopathy Throat: Yes posterior oropharynx normal, Yes tonsils normal and Yes uvula midline Eyes General: appearance normal, both eyes and all related structures Neck Neck: Yes normal visual inspection, Yes full ROM, Yes no lymphadenopathy, Yes no meningeal signs, Yes trachea midline, Yes supple, No anterior neck swelling and Yes tender ( mild right posterior cervical tenderness) Chest Chest palpation & inspection: normal inspection of the chest and normal palpation of entire chest wall Resp Effort & Inspection: normal respiratory effort and able to speak in complete sentences Auscultation: clear to auscultation bilaterally Cardio Jugular venous distension: no JVD Heart sounds: S1 normal heart sound present and S2 normal heart sound present GI Inspection: Yes normal to inspection Palpation (GI): Soft to palpation, not firm, nontender, no guarding and not rigid General: Yes no CVA tenderness Back/Spine/Pelvis Back: no CVA tenderness and No back tenderness Skin General skin exam: no rashes or lesions noted, elasticity normal and turgor normal Neuro General: patient oriented x3, gait normal, tone normal, moves all extremities, Normal light touch and pain sensation, no meningeal signs, no focal motor deficits, CN's II-XI intact bilaterally and normal sensation to monofilament Extrem Other: Right upper extremity: negative for any swelling, erythema, ecchymosis, deformity, crepitus, pitting edmea, pus discharge, or foul odor. motor, neuro, and vascular exam is intact. General: Yes normal to inspection, Yes full ROM and Yes capillary refill normal Psych Appearance: grossly normal, well kempt and not disheveled Course Course Course Narrative: RME: 39-year-old female presents to ED for neck pain when turning to the right and lifting right shoulder after sleeping wrong. Patient denies any blunt trauma, slurred speech, facial droop, paralysis of extremities. Patient denies any headache nausea or vomiting. NIH score is 0. Negative for signs of any she will hold the dislocation. Imaging ordered. Medical Decision Making Medical Decision Making MDM Narrative: 39-year-old female with EDS presents to ED for right-sided neck pain that is worse on movement after sleeping on her right side and waking up with the pain. Patient denies any recent trauma, headache, dizziness, nausea, vomiting, slurred speech, facial droop, loss of vision, or paralysis of extremities. Cervical spine CAT scan just shows dextroscoliosis, but negative for any fractures or dislocation. Negative for any neuro deficits. Patient informed to follow up with primary care provider. Patient explained worrisome signs and informed to return to the ED immediately if she has them. Not suspecting, stroke, carotid dissection, vertberal dissection, large vein occlusion, temporal arteritits, meningitits, epidural abscess, caudina qquina, or any other concerning symptoms. Differential Diagnosis Differential Diagnoses: The differential diagnosis associated with the presentation includes (Dislocation, fracture) Admission/Observation Consideration of admission/observation: Escalation of care including admission/observation considered Independent Interpretation I performed an independent interpretation of an: CT Scan Radiology Impression Discussion of test interpretation with radiology: I have reviewed the radiologist's reading. Independent Historian Clinical information obtained from an independent historian. History obtained from or confirmed by: Other Prescription Management I considered prescription management with: Pain Medication Discharge Plan Discharge Clinical Impression: Cervical sprain Patient Disposition: Home, Self-Care Instructions: Cervical Sprain (ED), Ice Pack Application (ED), Cold Compress or Soak (ED) Additional Instructions: Recommend follow up with primary care provider. Return to the ED immediately for any worsening neck pain, slurred speech, facial droop, paralysis of extremities, headache, nausea, vomiting, fever, chills, or any other concerning symptoms. CT CERVICAL SPINE WITHOUT CONTRAST CLINICAL INFORMATION: Posterior neck pain COMPARISON: None available. TECHNIQUE: Axial 3 mm thin and reformatted 2 mm thin sagittal and coronal images of cervical spine were obtained. This CT examination was performed using dose optimization techniques as appropriate, variously including the following: *Automated exposure control *Adjustment of mA and/or kV according to patient size (this includes techniques or standardized protocols for targeted exams where dose is matched to indication/reason for exam; i.e. extremities or head) *Use of iterative reconstruction technique DLP 656. FINDINGS: There is reversal of cervical lordosis. There is mild dextroscoliosis The vertebral heights, alignment and disc heights are normal. The craniovertebral junction and the C1-C2 alignment is normal. There is no visible acute fracture, dislocation or subluxation seen. The prevertebral and paravertebral soft tissues are normal. The airway is widely patent. Lung apices are clear. Thyroid lobes are symmetrical and normal. CT/CT cervical spine wo IV con IMPRESSION: Reversal of cervical lordosis with mild dextroscoliosis without any visible acute fracture, dislocation or subluxation seen. Fleischner guidelines were followed. Electronically signed by: Natanael Peña MD 01/10/2025 04:51 PM EDT Prescriptions: New naproxen 500 mg tablet 500 mg PO BID PRN (Reason: pain) Qty: 14 0RF cyclobenzaprine 10 mg tablet 10 mg PO TID PRN (Reason: muscle spasm) Qty: 21 0RF Rx Instructions: Side effects is drowsiness. Do not take at work or while driving. No Action famotidine 20 mg tablet 20 mg PO BID Qty: 56 0RF albuterol sulfate [Ventolin HFA] 90 mcg/actuation HFA aerosol inhaler 2 puff inhalation Q4H diltiazem HCl [Tiadylt ER] 120 mg capsule,extended release 24 hr PO BID lithium carbonate 300 mg tablet PO atomoxetine 60 mg capsule 60 mg PO DAILY spironolactone 50 mg tablet 50 mg PO DAILY cholecalciferol (vitamin D3) [Vitamin D3] 50 mcg (2,000 unit) capsule 50 mcg PO DAILY simethicone 125 mg capsule 125 mg PO BID-QID PRN (Reason: abdominal distention) Qty: 30 1RF esomeprazole magnesium [Nexium] 40 mg capsule,delayed release(DR/EC) 40 mg PO DAILY Qty: 30 5RF docusate sodium 100 mg capsule 100 mg PO BID buspirone 15 mg tablet 15 mg PO BID finasteride 1 mg tablet 1 mg PO DAILY medroxyprogesterone 2.5 mg tablet 2.5 mg PO DAILY lisinopril 20 mg tablet 20 mg PO DAILY estradiol [Estrace] 2 mg tablet 2 mg PO DAILY bupropion HCl 300 mg tablet extended release 24 hr 300 mg PO QAM All Day Allergy (cetirizine) 10 mg capsule 10 mg PO DAILY PRN atorvastatin 10 mg tablet 10 mg PO DAILY fluticasone propionate 44 mcg/actuation HFA aerosol inhaler 1 puff inhalation BID Rx Instructions: administer with spacer albuterol sulfate 2 mg tablet 2 mg PO Q8H 5-hydroxytryptophan (5-HTP) 50 mg capsule 50 mg PO BID hydroxyzine HCl 50 mg tablet 50 mg PO BEDTIME Referrals: Corazon Motley MD [Primary Care Provider] - (Cervical sprain) Stand Alone Forms: Work/School Release Interventions: ED Discharge Assessment Last Done: 01/10/25 19:31 Discharge Date/Time: 01/10/25 19:31 Print Language: Qatari
[2025-01-10 16:24] VITALS: BP 170/99; PULSE 91; RESP 16; TEMP 36.6; O2SAT 99; BMI 32.0
[2025-01-10 19:31] VITALS: BP 170/99; PULSE 91; RESP 16; TEMP 36.6; O2SAT 99
== END 2025-01-10 19:31 | disposition home or self-care (01) ==
PROVIDERS: Emergency Provider Emergency Medicine; PCP Family Medicine
DX: S13.9XXA Sprain of joints and ligaments of unspecified parts of neck, initial encounter (principal); M54.2 Cervicalgia; X58.XXXA Exposure to other specified factors, initial encounter; Y93.9 Activity, unspecified; Y92.9 Unspecified place or not applicable; Y99.8 Other external cause status
CPT/HCPCS: 72125; 99282; 99284

== ENCOUNTER → 2025-01-10 16:12 | Outpatient (BNV) | payer MEDICAID, SELFPAY | PROVIDERS: PCP Family Medicine; Visit Provider Radiology Diagnostic Radiology | DX: M54.2 Cervicalgia (principal) | CPT/HCPCS: 72125 ==

== ENCOUNTER 2025-01-13 12:22 | Outpatient (AMB) | payer OTHER, SELFPAY ==
--- NOTE | 2025-01-13 12:24 | A.OFFVIS_ITS ---
Vital Signs 01/13/25 12:25 Height 6 ft 3 in Weight 255 lb 11.779 oz BMI 32.0 BP 141/96 H Blood Pressure Location Lt brachial Position Sitting Pulse 107 H Intake Visit Reasons: 10 wks ibs Intake Note: Radha presents in the office as a 10 week follow up for IBS. CC: She states that she is having some concerns - she still is having issues with her IBS - she has been doing the LOW FOD diet and realized she found some trigger foods she would like to follow up on. Allergies Sulfa (Sulfonamide Antibiotics) Allergy (Verified 01/13/25 12:25) Anaphylaxis HPI HPI 10 wks ibs: Details: LAST VISIT: Postprandial epigastric pain GERD (gastroesophageal reflux disease) IBS (irritable bowel syndrome) Abdominal pain Postprandial abdominal bloating Plan We will rule out H pylori, celiac disease, chronic pancreatitis. Will check liver panel, vitamin B12, folate and vitamin-D level. Patient will be sent for upper GI series to check for reflux. Will send her for abdominal ultrasound. Patient was encouraged to take simethicone 1 hr before going for ultrasound to decrease the bloating as often gas can obscure pancreas. Will start her on famotidine at bedtime and change PPI to Nexium. We have discussed low FODMAP diet with patient. List of food recommended as well as list of food to avoid given to her. Patient will follow-up in 2-3 months. Patient will call our office if she will have worsening GI symptoms. She is agreeable to this plan and verbalizes understanding of instructions. She was given the opportunity to ask questions and all questions answered. ? Thank you for allowing me to participate in her care Orders Orders H Pylori Breath Test Today K21.9 Vitamin D 25-OH (D2 and D3) Today E55.9 Transglutaminase IgA Today R10.9 TSH reflex Free T4 Today K59.00 Lipase Today R10.9 Liver Panel Today R74.01 Vitamin B12 and Folate Today R19.7 FL upper GI w Ba Swallow Today K21.9 US abdomen complete Today R10.9 Medications New famotidine (Pepcid) 20 mg PO BID 60 tabs 1RF K29.70 simethicone 125 mg PO BID-QID PRN 30 caps 1RF abdominal distention esomeprazole magnesium (Nexium) 40 mg PO DAILY 30 caps 5RF K21.9 TODAY'S VISIT Patient is here today for follow-up and to discuss lab and ultrasound results. Upper GI series was never scheduled yet with patient will try to help her get appointment. Patient reports that she continues to have epigastric pain occasionally postprandially. Feels like omeprazole was working better for her. All results discussed with patient. No H pylori and otherwise normal labs. Patient reports trying to change diet and following low FODMAP diet. Reports that symptoms significantly improved after staying away from certain dietary triggers. For example like onion, garlic and some of the vegetables. Patient also reports that noticed that she feels worse after drinking/eating dairy. Patient denies melena, hematochezia, unintentional weight loss or ribbon like stools. Patient denies any dyspepsia, dysphagia or odynophagia. PFSH Medical History GERD (gastroesophageal reflux disease) Gastritis Hiatal hernia IBS (irritable bowel syndrome) Surgical History Hx of colonoscopy Hx laparoscopic cholecystectomy Status post left foot surgery Social History Patient Tobacco Use Status: Never used Tobacco Current occupational status: unemployed Review of Systems Const Denies weight gain and Denies weight loss ENT Reports no additional complaints, Denies dysphagia and Denies odynophagia Card Reports no additional complaints Resp Reports no additional complaints GI Reports abdominal pain (Occasional epigastric), Denies belching, Denies melena, Reports bloating, Denies change in bowel habits, Denies dysphagia, Denies excessive flatus, Denies dyspepsia, Reports heartburn, Denies diarrhea, Denies loose stools, Denies nausea, Denies odynophagia and Denies vomiting Reports no additional complaints Musc Reports no additional complaints Neuro Reports no additional complaints Psych Reports no additional complaints Endo Reports no additional complaints Physical Exam Vital Signs: Last Vital Signs Pulse 107 H 01/13/25 12:25 BP 141/96 H 01/13/25 12:25 BMI result Body Mass Index 32.0 Const General: healthy appearing and no acute distress Nutritional Appearance: obese Orientation/consciousness: patient oriented x3 Resp Effort & Inspection: normal respiratory effort, able to speak in complete sentences, no tracheal deviation and symmetric chest movement Auscultation: clear to auscultation bilaterally Cardio Rate: regular rate GI Inspection: Yes normal to inspection, No distended and Yes obesity Palpation (GI): Soft to palpation, not firm, nontender and No hepatosplenomegaly present Auscultation: normal bowel sounds General: Yes no CVA tenderness Back/Spine/Pelvis Back: no CVA tenderness Skin General skin exam: elasticity normal, turgor normal and dry skin Neuro General: patient oriented x3 Psych Appearance: grossly normal Mental Status: mental status grossly normal Results Reviewed Results Reviewed: ULTRASOUND OF ABDOMEN AND PELVIS FINDINGS: PANCREAS: Visualized portions are unremarkable. ABDOMINAL AORTA: The proximal, mid, and distal segments are normal in caliber. INFERIOR VENA CAVA: Visualized portions are normal. LIVER: The liver is normal in size. The liver contour is normal. Parenchymal echogenicity is normal there is anechoic cyst left hepatic lobe measuring 0.7 x 0.8 x 0.7 cm. . There is no intrahepatic biliary duct dilatation seen. GALLBLADDER: The gallbladder has been surgically removed. COMMON BILE DUCT: Normal in caliber measuring 0.49 cm in diameter. RIGHT KIDNEY: No hydronephrosis. No renal calculi or focal parenchymal lesions. The kidney measures 11.1 cm in maximum dimension. LEFT KIDNEY: No hydronephrosis. No renal calculi or focal parenchymal lesions. The kidney measures 10.6 cm in maximum dimension. SPLEEN: The spleen measures 11.6 cm in maximum dimension. FREE FLUID: None. US/US abdomen complete IMPRESSION: Left hepatic lobe simple cyst. Rest of the abdominal ultrasound is unremarkable. Laboratory Tests 11/02/24 12/01/24 09:58 14:40 Total Bilirubin 0.3 Direct Bilirubin 0.1 AST 16 ALT 22 Alkaline Phosphatase 82 Lipase 22 Vitamin B12 193 L 25-OH Vitamin D Total 42 Folate 4.0 TSH 2.51 Tiss Transglutamin IgA <1.0 H. pylori Breath Test Negative Assessment & Plan Assessment & Plan (1) Postprandial epigastric pain: Code(s): R10.13 - Epigastric pain (2) GERD (gastroesophageal reflux disease): Code(s): K21.9 - Gastro-esophageal reflux disease without esophagitis Qualifiers: Esophagitis presence: esophagitis presence not specified Qualified Code(s): K21.9 - Gastro-esophageal reflux disease without esophagitis (3) IBS (irritable bowel syndrome): Code(s): K58.9 - Irritable bowel syndrome, unspecified Qualifiers: Irritable bowel syndrome type: with both diarrhea and constipation Qualified Code(s): K58.2 - Mixed irritable bowel syndrome (4) Abdominal pain: Code(s): R10.9 - Unspecified abdominal pain Qualifiers: Abdominal location: upper abdomen, unspecified Qualified Code(s): R10.10 - Upper abdominal pain, unspecified (5) Postprandial abdominal bloating: Code(s): R14.0 - Abdominal distension (gaseous) Plan Patient reports feeling better with diet. Patient will continue follow FODMAP diet. Examples of different lactose-free milk and other dairy products as well as gluten free products discussed with patient. Patient admits that she does not empty her bowels well, can try senna tea or senna 2 tablets daily. Increase fluid intake and activity to promote better bowel motility. Patient will see go back to taking omeprazole daily. Avoid dietary triggers only night snacking. Staying upright for minimal 3 hours after meals discussed with patient.. Patient is agreeable to current plan of care and verbalizes understanding of instructions. She was given the opportunity to ask questions and all questions answered. Thank you for allowing me to participate in her care Medications: New omeprazole 40 mg PO DAILY 60 caps 3RF K21.9 - Gastro-esophageal reflux disease without esophagitis sennosides (Natural Senna Laxative) 17.2 mg (2 x 8.6 mg) PO BEDTIME 180 tabs 3RF constipation K59.00 - Constipation, unspecified Discontinued 2 esomeprazole magnesium (Nexium) Discontinued Reason: Doctor's Order 40 mg PO DAILY 30 caps 5RF K21.9 - Gastro-esophageal reflux disease without esophagitis Coding Level of Care Code Est Pt Level 4 (94585) Complex EM visit Add On G2211 Diagnoses Postprandial epigastric pain R10.13 Gastroesophageal reflux disease, unspecified whether esophagitis present K21.9 Esophagitis presence: esophagitis presence not specified Irritable bowel syndrome with both constipation and diarrhea K58.2 Irritable bowel syndrome type: with both diarrhea and constipation Pain of upper abdomen R10.10 Abdominal location: upper abdomen, unspecified Postprandial abdominal bloating R14.0 Time Spent (min) 35 Comment 25 minutes spent with patient and additional 10 minutes spent reviewing her records
[2025-01-13 12:25] VITALS: BP 141/96; PULSE 107; BMI 32.0
--- OUTSIDE RECORDS SUMMARY | 2025-01-13 13:06 | XMS_ITS | Clinical Summary ---
Author Organization [facility] Address [address] [place] [address] Care Team Providers Care French Instructor Name Role Phone Kenia Wiggins Primary Care Provider + [phone] Allergies Active Allergy Reactions Criticality Noted Date [...] - Tdap) 2008 COVID-19 Vaccine (1 - season) 2024 Alcohol/Substance Use Screening 09/21/2024 Depression Screening and Follow-Up 09/21/2024 Social Drivers of Health Annual Screening 09/21/2024 Influenza Vaccine (Season Ended) 2025 RSV Vaccine (60+ years old a nd patients) (1 - 1-dose 75+ series) 2061 Insurance BCBS OUT OF STATE PPO Care Teams French Instructor Relationship Specialty Start Date End Date Kenia Wiggins [address] [place] [address] [phone] (work) PCP - General Sports Medicine 10/18/19
--- OUTSIDE RECORDS SUMMARY | 2025-01-13 13:06 | XMS_ITS | Data Portability ---
Author Organization [place] [facility], Main Office Address [address] [place] [address] Assessment No assessment recorded. Plan of Treatment Reminders Order Date Submit Date Provider Last Modified By Organization Details Last Modified Time Details Appointments None recorded. Lab VIKY (antinuclea r antibodies) screen, ifa, serum 2022 023 [facility], [address] [place] [address], [id number], 3 04:48:46 erythrocyte sedimentati on rate by westergren method 2022 023 [facility], [address] [place], [address], 3 04:48:45 C-reactive protein, quantitativ e, serum or plasma 2022 023 [facility], [address] [place] [address], [id number], 3 04:48:47 rf (rheumatoid factor), serum 2022 023 [facility], [address] [place], [address], 3 04:48:46 urinalysis, dipstick 2022 023 [facility] Main Office, [address] [place], [address], 3 16:08:08 CBC w/ auto diff 2022 023 [facility], [address] [place], [address], 3 04:48:45 CMP, serum or plasma 2022 023 [facility], [address] [place], [address], 3 04:48:44 lipid panel, serum 2022 023 [facility], [address] [place], [address], 3 04:48:43 TSH, serum or plasma 2022 023 [facility], [address] [place], [address], 3 04:48:48 Referral None recorded. Procedures None recorded. Surgeries None recorded. Imaging None recorded. Medication Orders bupropion HCl XL 300 mg 24 hr tablet, extended release [address] [id number], [address] [facility], [place], [address], 4 13:27:53 Patient TargetsNo targets recorded. Patient InstructionsNo instructions recorded. Reason for Referral None Reported. Results Created Date Observation Date Name Description Value Unit Range Abnormal Flag Note LastModifiedBy Organization Detail LastModifiedTime 03/30/2003/30/2023 urina lysis , dipst ick Leukocytes negati ve Not Available Main Office [address] [place], [address], 03/30/2023 14:39:52 03/30/2003/30/2023 urina lysis , dipst ick Nitrite negati ve Not Available Main Office [address] [place], [address], 03/30/2023 14:39:52 03/30/20 23 03/30/2023 urina lysis , dipst ick Protein negati ve Not Available Main Office [address] [place], [address], 03/30/2023 14:39:52 03/30/20 23 03/30/2023 urina lysis , dipst ick Blood negati ve Not Available Main Office [address] [place], [address], 03/30/2023 14:39:52 03/30/20 23 03/30/2023 urina lysis , dipst ick Ketone negati ve Not Available Main Office [address] [place], [address], 03/30/2023 14:39:52 03/30/2003/30/2023 urina lysis , dipst ick Glucose negati ve Not Available Main Office [address] [place], [address], 03/30/2023 14:39:52 04/01/20 23 04/02/2023 LIPID PANEL , STAND LAZARO cholesterol, total 263 mg/dL <200 high Not Available [facility] [address], [address], 04/02/2023 06:54:19 04/01/20 23 04/02/2023 LIPID PANEL , STAND LAZARO HDL cholesterol 78 mg/dL > or = 50 normal Not Available [facility] [address], [place], [address], 04/02/2023 06:54:19 04/01/20 23 04/02/2023 LIPID PANEL , STAND LAZARO triglyceride s 110 mg/dL <150 normal Not Available [facility] [address], [address], 04/02/2023 06:54:19 04/01/20 23 04/02/2023 LIPID PANEL [...] 310(1 9): 2061- 206 (http ://ed ucati on.PAYMILL. Siamosoci/f aq/FA Q164) Not Available [facility] [place] [facility] [address], [place], [address], 04/02/2023 06:54:19 04/01/20 23 04/02/2023 LIPID PANEL , STAND LAZARO chol/HDLC ratio 3.4 (calc ) <5.0 normal Not Available [facility] [place] [facility] [address], [place], [address], 04/02/2023 06:54:19 04/01/20 23 04/02/2023 LIPID PANEL , STAND LAZARO non HDL cholesterol 185 mg/dL _(lamine c) <130 high For patie nts with diabe sandip plus 1 major ASCVD risk facto r, treat ing to a non-H DL-C goal of <100 mg/dL (LDL- C of <70 mg/dL ) is consi dered a thera pemercy c optio n. Not Available [facility] [place] [facility] [address], [place], [address], 04/02/2023 06:54:19 04/01/2004/02/2023 COMPR EHENS IVONNE METAB OLIC PANEL glucose 85 mg/dL 65-99 normal Fasti ng refer ence inter jeanne Not Available [facility] [place] [facility] [address], [place], [address], 04/02/2023 06:54:21 04/01/20 23 04/02/2023 COMPR EHENS IVONNE METAB OLIC PANEL urea nitrogen (BUN) 13 mg/dL 7-25 normal Not Available [facility] [address] [place], [place], [address], 04/02/2023 06:54:21 04/01/20 23 04/02/2023 COMPR EHENS IVONNE METAB OLIC PANEL creatinine 0.82 mg/dL 0.50-0 .97 normal Not Available [facility] [address] [place], [place], [address], 04/02/2023 06:54:21 04/01/20 23 04/02/2023 COMPR EHENS [...] kdoqi /gfr% 5Fcal culat or Not Available [facility] [address], [place], [address], 04/02/2023 06:54:21 04/01/20 23 04/02/2023 COMPR EHENS IVONNE METAB OLIC PANEL BUN/creatini ne ratio NOT APPLIC ABLE (calc ) 6-22 Not Available [facility] [address] [place], [place], [address], 04/02/2023 06:54:21 04/01/20 23 04/02/2023 COMPR EHENS IVONNE METAB OLIC PANEL sodium 139 mmol/ L 135-14 6 normal Not Available [facility] [address] [place], [place], [address], 04/02/2023 06:54:21 04/01/20 23 04/02/2023 COMPR EHENS IVONNE METAB OLIC PANEL potassium 4.5 mmol/ L 3.5-5. 3 normal Not Available [facility] [address], [place], [address], 04/02/2023 06:54:21 04/01/2004/02/2023 COMPR EHENS IVONNE METAB OLIC PANEL chloride 104 mmol/ L 98-110 normal Not Available [facility] [address], [place], [address], 04/02/2023 06:54:21 04/01/2004/02/2023 COMPR EHENS IVONNE METAB OLIC PANEL carbon dioxide 29 mmol/ L 20-32 normal Not Available [facility] [address], [place], [address], 04/02/2023 06:54:21 04/01/2004/02/2023 COMPR EHENS IVONNE METAB OLIC PANEL calcium 9.6 mg/dL 8.6-10 .2 normal Not Available [facility] [address], [place], [address], 04/02/2023 06:54:21 04/01/2004/02/2023 COMPR EHENS IVONNE METAB OLIC PANEL protein, total 6.6 g/dL 6.1-8. 1 normal Not Available [facility] [address], [place], [address], 04/02/2023 06:54:21 04/01/2004/02/2023 COMPR EHENS IVONNE METAB OLIC PANEL albumin 4.3 g/dL 3.6-5. 1 normal Not Available [facility] [address], [place], [address], 04/02/2023 06:54:21 04/01/20 23 04/02/2023 COMPR EHENS IVONNE METAB OLIC PANEL globulin 2.3 g/dL_ (calc ) 1.9-3. 7 normal Not Available [facility] [address], [place], [address], 04/02/2023 06:54:21 04/01/20 23 04/02/2023 COMPR EHENS IVONNE METAB OLIC PANEL albumin/glob ulin ratio 1.9 (calc ) 1.0-2. 5 normal Not Available [facility] [address], [place], [address], 04/02/2023 06:54:21 04/01/20 23 04/02/2023 COMPR EHENS IVONNE METAB OLIC PANEL bilirubin, total 0.3 mg/dL 0.2-1. 2 normal Not Available [facility] [address], [place], [address], 04/02/2023 06:54:21 04/01/20 23 04/02/2023 COMPR EHENS IVONNE METAB OLIC PANEL alkaline phosphatase 56 U/L 31-125 normal Not Available [facility] [address], [place], [address], 04/02/2023 06:54:21 04/01/20 23 04/02/2023 COMPR EHENS IVONNE METAB OLIC PANEL AST 13 U/L 10-30 normal Not Available [facility] [address], [place], [address], 04/02/2023 06:54:21 04/01/20 23 04/02/2023 COMPR EHENS IVONNE METAB OLIC PANEL ALT 26 U/L 6-29 normal Not Available [facility] [address], [place], [address], 04/02/2023 06:54:21 04/01/2004/02/2023 SED RATE BY MODIF IED WESTE RGREN sed rate by modified westergren 2 mm/h < or = 20 normal Not Available [facility] [place] [facility] [address], [place], [address], 04/02/2023 04:48:45 04/01/20 23 04/02/2023 CBC (INCL UDES DIFF/ PLT) white blood cell count 5.9 thous and/u L 3.8-10 .8 normal Not Available [facility] [place] [facility] [address], [place], [address], 04/02/2023 04:48:45 04/01/20 23 04/02/2023 CBC (INCL UDES DIFF/ PLT) red blood cell count 4.88 zia on/uL 3.80-5 .10 normal Not Available [facility] [address], [place], [address], 04/02/2023 04:48:45 04/01/20 23 04/02/2023 CBC (INCL UDES DIFF/ PLT) hemoglobin 14.2 g/dL 11.7-1 5.5 normal Not Available [facility] [place] [facility] [address], [place], [address], 04/02/2023 04:48:45 04/01/2004/02/2023 CBC (INCL UDES DIFF/ PLT) hematocrit 42.3 % 35.0-4 5.0 normal Not Available [facility] [address], [place], [address], 04/02/2023 04:48:45 04/01/20 23 04/02/2023 CBC (INCL UDES DIFF/ PLT) MCV 86.7 fL 80.0-1 00.0 normal Not Available [facility] [place] [facility] [address], [place], [address], 04/02/2023 04:48:45 04/01/20 23 04/02/2023 CBC (INCL UDES DIFF/ PLT) MCH 29.1 pg 27.0-3 3.0 normal Not Available [facility] [place] [facility] [address], [place], [address], 04/02/2023 04:48:45 04/01/2004/02/2023 CBC (INCL UDES DIFF/ PLT) MCHC 33.6 g/dL 32.0-3 6.0 normal Not Available [facility] [place] [facility] [address], [place], [address], 04/02/2023 04:48:45 04/01/20 23 04/02/2023 CBC (INCL UDES DIFF/ PLT) RDW 12.8 % 11.0-1 5.0 normal Not Available [facility] [place] [facility] [address], [place], [address], 04/02/2023 04:48:45 04/01/20 23 04/02/2023 CBC (INCL UDES DIFF/ PLT) platelet count 268 thous and/u L 140-40 0 normal Not Available [facility] [place] [facility] [address], [place], [address], 04/02/2023 04:48:45 04/01/2004/02/2023 CBC (INCL UDES DIFF/ PLT) MPV 9.7 fL 7.5-12 .5 normal Not Available [facility] [place] [facility] [address], [place], [address], 04/02/2023 04:48:45 04/01/20 23 04/02/2023 CBC (INCL UDES DIFF/ PLT) absolute neutrophils 3688 cells /uL 1500-7 800 normal Not Available [facility] [place] [facility] [address], [place], [address], 04/02/2023 04:48:45 04/01/20 23 04/02/2023 CBC (INCL UDES DIFF/ PLT) absolute lymphocytes 1587 cells /uL 850-39 00 normal Not Available [facility] [place] [facility] [address], [place], [address], 04/02/2023 04:48:45 04/01/20 23 04/02/2023 CBC (INCL UDES DIFF/ PLT) absolute monocytes 413 cells /uL 200-95 0 normal Not Available [facility] [place] [facility] [address], [place], [address], 04/02/2023 04:48:45 04/01/20 23 04/02/2023 CBC (INCL UDES DIFF/ PLT) absolute eosinophils 171 cells /uL 15-500 normal Not Available [facility] [place] [facility] [address], [place], [address], 04/02/2023 04:48:45 04/01/20 23 04/02/2023 CBC (INCL UDES DIFF/ PLT) absolute basophils 41 cells /uL 0-200 normal Not Available [facility] [place] [facility] [address], [place], [address], 04/02/2023 04:48:45 04/01/20 23 04/02/2023 CBC (INCL UDES DIFF/ PLT) neutrophils 62.5 % normal Not Available [facility] [place] [facility] [address], [place], [address], 04/02/2023 04:48:45 04/01/20 23 04/02/2023 CBC (INCL UDES DIFF/ PLT) lymphocytes 26.9 % normal Not Available [facility] [place] [facility] [address], [place], [address], 04/02/2023 04:48:45 04/01/20 23 04/02/2023 CBC (INCL UDES DIFF/ PLT) monocytes 7.0 % normal Not Available [facility] [place] [facility] [address] [place], [place], [address], 04/02/2023 04:48:45 04/01/20 23 04/02/2023 CBC (INCL UDES DIFF/ PLT) eosinophils 2.9 % normal Not Available [facility] [place] [facility] [address] [place], [place], [address], 04/02/2023 04:48:45 04/01/20 23 04/02/2023 CBC (INCL UDES DIFF/ PLT) basophils 0.7 % normal Not Available [facility] [place] [facility] [address] [place], [place], [address], 04/02/2023 04:48:45 04/01/20 23 04/05/2023 VIKY SCREE [...] bull purpo ses only. ) Not Available [facility] [place] [facility] [address], [address], 04/05/2023 14:35:53 04/01/20 23 04/02/2023 RHEUM ATOID FACTO R rheumatoid factor <14 IU/mL <14 normal Not Available [facility] [place] [facility] [address], [place], [address], 04/02/2023 13:30:15 04/01/20 23 04/02/2023 C-NIRU CTIVE PROTE IN C-reactive protein 1.6 mg/L <8.0 normal Not Available [facility] [place] [facility] [address], [place], [address], 04/02/2023 13:30:16 04/01/20 23 04/02/2023 TSH TSH 2.85 mIU/L normal Refer ence Range > or = 20 Years 0.40- 4.50 Pregn kelly Range s First trime ster 0.26- 2.66 Secon d trime ster 0.55- 2.73 Third trime ster 0.43- 2.91 Not Available [facility] [address], [place], [address], 04/02/2023 06:54:28 Result Notes None recorded. Problems Name Problem SNOMED Code Status Onset Date Resolution Date Notes Provider Name and Address Organization Details Recorded Time Gender dysphoria 82904793 Active 2022 Not Available [facility] 3 12:28:14 Bipolar I disorder 295405862 Active 2022 Not Available [facility] 3 12:28:14 Major depressive disorder 154573871 Active 2022 Not Available [facility] 3 12:28:14 Generalize d anxiety disorder 29013833 Active 2022 Not Available [facility] 3 12:28:14 Chronic post-traum atic stress disorder 099485863 Active 2022 Not Available [facility] 3 12:28:14 Attention deficit hyperactiv ity disorder 852072379 Active 2022 Not Available [facility] 3 12:28:14 Autism spectrum disorder 66628504 Active 2022 Not Available [facility] 3 12:28:14 Dyslexia 67357339 Active 2022 Not Available [facility] 3 12:28:14 Insomnia 693166998 Active 2022 Not Available [facility] 3 12:28:14 Eating disorder in remission 295117746 Active 2022 Not Available [facility] 3 12:28:14 Vitamin D deficiency 65888582 Active 2022 Not Available [facility] 3 12:28:14 Irritable bowel syndrome 97558379 Active 2022 Not Available [facility] 3 12:28:14 Delayed gastric emptying 855181637 Active 2022 Not Available [facility] 3 12:28:14 Gastroesop hageal reflux disease 982938515 Active 2022 Not Available [facility] 3 12:28:14 Hiatal hernia 47188454 Active 2022 Not Available [facility] 3 12:28:14 Essential hypertensi on 51908989 Active 2022 Not Available [facility] 3 12:28:14 Post-acute COVID-19 1411872617 Active 2022 Not Available [facility] 3 12:28:14 Asthma 428460541 Active 2022 Not Available [facility] 3 12:28:14 Osteoarthr itis of knee 573867602 Active 2022 Not Available [facility] 3 12:28:14 Achilles tendinitis 93854676 Active 2022 Not Available [facility] 3 12:28:14 Hypermobil ity syndrome 33793732 Active 2022 Not Available [facility] 3 12:28:14 Congenital pes planus 31501938 Active 2022 Not Available [facility] 3 12:28:14 Chronic migraine without aura 1699843960419 05 Active 2022 Not Available [facility] 3 12:28:14 Problem Notes None recorded. Procedures Surgical History Date Name Laterality Status Provider Name and Address Organization Details Recorded Time 09/21/19 20 cholecystectomy completed MANUELA GERARDO PA-C [address] [place] [address], [phone], [facility] 03/30/2023 15:07:46 [...] anaphylax is Not available Not available 03/30/2023 [id number] SNOMED Not Available Not Available Not [...] /min 98 % 98 % 31.9 kg/m2 967682. 28 g 110 mm[Hg] 72 mm[Hg] Judi Worrell [facility] 14:51:25 Date Recorded Body height Provider Name an d Address Organization Details Last Updated DateTime 01/11/2024 189.23 cm LIBERTAD Lai [address] [place] [address], [phone], [facility] 01/11/2024 13:13:15 Social History Question Answer Notes LastModified by Organizat ion Details LastModified Time Tobacco Smoking Status Never Smoker Judi gregory, [facility] 03/30/2023 14:48:52 What Is Your Level Of Alcohol Consumption? Occasional Information not available 03/30/2023 Are You Blind Or Do You Have Difficulty Seeing? No Information not available 03/30/2023 What Is Your Level Of Caffeine Consumption? Moderate Information not available 03/30/2023 What Type Of Tourist Information Officer Do You Use? None Information not available [...] In The Last 12 Month [employer] Threatened To Shut Off Services In Your [...] Anxious, Or Unable To Sleep At Night)? IU1664-5 Information not available 03/30/2023 Do You Use [...] mL 08/05/2023 completed Miladys Flori gregory [place] [facility] 08/08/2023 18:35:35 Tdap 07/21/2024 completed Miladys Ruby bri, [facility] 10/24/2024 09:54:26 COVID-19, mRNA, LNP-S, PF, 50 mcg/0.5 mL 10/22/2024 completed Miladys Ruby bri, [facility] 10/24/2024 09:54:40 Past Encounters Encounter ID Performer Location Encounter Start Date Encounter Closed Date Diagnosis/Indication Diagnosis SNOMED-CT Code Diagnosis ICD10 Code Diagnosis Note [id number] Michoacano Alarcon MD Main Office [address] [place] [address] 03/30/2023 14:31:58 03/30/2023 15:57:42 Adult health examination 090366304 Z00.00 38 yo trans female with a complex medical history presenting today as a new patient for annual exam. She has many chronic conditions as listed below. However, most of them are currently stable. She is not fasting today, will put in orders to an outside quest for FBW. Asthma 233325328 J45.90 9 See above. Uses flovent and albuterol PRN. She is not seeing a pulmonolog ist. Vitamin D deficiency 347 [address]2404 E55.9 Taking daily vitamin d. Stable under current management plan based on subjective and objective findings. Essential hypertension 10905173 I10 Taking lisinopril 20 mg daily. BP today is 110/72. Stable under current management plan based on subjective and objective findings. Gastroesop hageal reflux disease 370175779 K21.9 See above. Followed by GI. Taking omeprazole daily. Irritable bowel syndrome 38187626 K58.9 Patient has IBS primarily constipati on. She is in the process of getting worked up for other GI conditions with her GI specialist out of [facility]. She has a colonoscop y scheduled for later this week. Post-acute COVID-19 1119 935437 U09.9 Patient had covid 2+ years ago and is still experienci ng chronic respirator y symptoms. She reports persistent wheezing and shortness of breath. She is working on getting set up with a long covid specialist in [place]. Osteoarthr itis of knee 310952041 M17.9 Patient has chronic pain due to arthritis. Of note, her mother has RA. Will check an VIKY as well as inflammato ry markers to rule out an autoimmune inflammato ry cause of her symptoms. Hiatal hernia 54664039 K 44.9 See above. Delayed ga stric emptying 532207853 K30 See above. Hypermobil ity syndrome 29169826 M35.7 She would like to have genetic testing done in the future for evaluation of connective tissue disorders. Congenital pes planus 23 390477 Q66.50 She is getting custom orthotics later this week. Achilles tendinitis 1165 4001 M76.60 See above. Chronic mi graine without aura 5857809565 32756 G43.709 Currently is having 2-3 migraines per month. Stable under current management plan based on subjective and objective findings. Bipolar I disorder 36461 6008 F31.9 Seeing a therapist regularly but is not currently seeing a psychiatri st. She is taking bupropion 300 mg daily and buspar 15 mg BID with good effect. She also uses hydroxyzin e PRN for anxiety. She is looking to get set up with another psychiatri st in the future. Informatio n given today. Major depr essive disorder 418764236 F32.9 See above. Attention deficit hyperactivity disorder 228616445 F90.9 Not currently on medication . Stable under current management plan based on subjective and objective findings. Chronic post-traumatic stress disorder 722747917 F43.12 See above. Autism spe ctrum disorder 73227837 F84.0 Stable under current management plan based on subjective and objective findings. Generalize d anxiety disorder 93903072 F41.1 See above. Dyslexia 02948976 F81.0 Stable under current management plan based on subjective and objective findings. Gender dysphoria 8815683 9 F64.9 She is stable on hormone therapy. She is not currently seeing a specialist for management of hormones. Will manage hormones moving forward unless she requires dose adjustment s. Eating dis order in remission 139496803 F50.9 Stable under current management plan based on subjective and objective findings. Insomnia 893320194 G47.0 0 Stable under current management plan based on subjective and objective findings. [id number] Michoacano Alarcon MD Main Office [address] [place] [address] 01/11/2024 13:02:56 01/11/2024 16:42:34 Bipolar I disorder 826083583 F31.9 Seeing a therapist regularly but is not currently seeing a psychiatri st. She is taking bupropion 300 mg daily and buspar 15 mg BID with good effect. She also uses hydroxyzin e PRN for anxiety. She is looking to get set up with another psychiatri st but has recently moved to [place], [place] and is wait listed.She has switched her insurance to try to obtain a psychiatri st. 3-months of bupropion 300mg XL was prescribed today. Patient was informed that she needs to find a PCP and psychiatri st to take over care. Hypermobil ity of joint 376838833 R29.898 Patient reports she has hypermobil ity in her joints. She would like to be evaluated for possible EDS. Advised patient to call her insurance to find a bromination equipment operator . From there, she can seek a [...] Park Member ID Guarantor Name 03/30/2023 1 [facility] - DIRECT CONNECTORCARE TYPE I (HMO) [id number] Radha Kirby [id number] Januarymaria teresa Kirby 01/11/2024 1 [facility] - [employer] CONNECTORC[employer] TYPE I (HMO) [id number] Radha Mirta [id number] Mirta Notes Date Note Type Note Provider Name and Address Organization Details Recorded Time 03/30/2023 text/html 38 yo trans female with a complex medical history presenting today as a new patient for annual exam. Michoacano Alarcon MD [address] [place], [address], [facility] 04/01/2023 08:40:43 01/11/2024 text/html 38 yo trans female with a complex medical history presenting today for a medication follow up. Michoacano Alarcon MD [address] [place], [address], [facility] 01/11/2024 13:48:52 OBGyn Episode No OBEpisode recorded.
--- OUTSIDE RECORDS SUMMARY | 2025-01-13 13:06 | XMS_ITS | Clinical Summary ---
Author Organization [facility] Address [address] [place] [address] Care Team Providers Care Superannuation Clerk Name Role Phone Unavailable Primary Care Provider [...]
--- OUTSIDE RECORDS SUMMARY | 2025-01-13 13:06 | XMS_ITS | Referral Summary ---
Author Organization [facility] Address [address] [place] [address] Care Team Providers Care Stogy Maker Name Role Phone Kenia Wiggins Primary Care Provider + [phone] Allergies Active Allergy Reactions Criticality Noted Date [...] BCBS OUT OF STATE PPO Care Teams Stogy Maker Relationship Specialty Start Date End Date Kenia Wiggins [address] [place] [phone] PCP - General Sports Medicine 10/18/19
--- OUTSIDE RECORDS SUMMARY | 2025-01-13 13:07 | XMS_ITS | Data Portability ---
Author Organization [facility], svmg_admin Address [address] [place] [id number] Care Team Providers Care Candle Maker Name Role Phone NEELIMA VÁZQUEZ Primary Care Provider [phone] DAVI BANGURA Manager Action Assessment Encounter Date Assessment Date Assessment LastModified [...] the patient was 5 mins START 1002 [id number] Not available 10/04/2024 10:14:17 Plan of Treatment Reminders Order Date Submit Date Provider Last Modified By Organization Details Last Modified Time Details Appointments None recorded. Lab lipid panel, serum 2024 025 [facility], [address] [place] [address], [address], 5 15:32:27 AST/SGOT (aspartate aminotrans ferase), serum or plasma 2024 025 [facility], [address] [place] [address], [address], 5 10:06:21 ALT (alanine aminotrans ferase), serum or plasma 2024 025 [facility], [address] [place] [address], [address], 5 10:06:21 CK (creatine kinase), total, serum 2024 025 [facility], [address] [place] [address], [address], 5 10:06:21 BMP, serum or plasma 2024 025 [facility], [address] [place] [address], [address], 5 10:06:21 lipid panel, serum [address], [address], 4 14:04:14 CK (creatine kinase), total, serum [address], [address], 4 14:04:14 ALT (alanine aminotrans ferase), serum or plasma [address], [address], 4 14:04:14 AST/SGOT (aspartate aminotrans ferase), serum or plasma [address], [address], 4 14:04:14 BMP, serum or plasma [address], [address], 4 14:04:14 magnesium, serum or plasma [address], [address], 4 14:04:14 TSH, serum or plasma [address], [address], 4 14:04:14 Referral None recorded. Procedures None recorded. Surgeries None recorded. Imaging electrocar diogram 2023 024 LORETTA In-Office Order, Internal Use Only DO Not Attach Compendium DO Not Attach Compendium, Do Not Delete/merge, [id number] 11:21:19 electrocar diogram 2023 [email or web address] In-Office Order, Internal Use Only DO Not Attach Compendium DO Not Attach Compendium, Do Not Delete/merge, [id number] 14:04:14 quality assurance monitor 2023 MCKINNEY [employer], [address] [facility], [place], [address], 10:45:12 US, echocardio gram, transthora cic, complete, w/ color flow - 2D Color-flow and Doppler with contrast if clinically indicated according to protocol. 2023 LORETTA Not available 15:02:48 exercise stress test 2023 [facility] ([facility]), [address] [place] [address], [address], 12:11:15 Medication Orders diltiazem ER 120 mg capsule,24 hr,extende d release 2023 [id number], [address] [place], [address], 11:13:15 Patient TargetsNo targets recorded. Patient Instructions Encounter Date Encounter Id Patient Instructions Last Modified By Organization Details Last Modified Time 05/04/2024 [id number] palpitations: care instructions [email or web address] Not available 05/04/2024 14:04:14 high blood pressure: care instructions rwholey Not available 05/04/2024 14:04:14 learning about high blood pressure rwholey Not available 05/04/2024 14:04:14 shortness of breath: care instructions [email or web address] Not available 05/04/2024 14:04:14 06/02/2024 [id number] palpitations: care instructions [email or web address] Not available 06/02/2024 17:14:23 PLACED A 3 DAY ZIO XT MONITOR FOR PALPITATIONS. ALL QUESTIONS ANSWERED. [email or web address] Not available 06/02/2024 14:04:40 10/04/2024 [id number] high blood pressure: care instructions Not available [...] DO Not Attach Compendium, Do Not Delete/merge, [id number] 05/04/2024 09:02:55 05/04/2005/04/2024 elect rocar diogr am No observ ation record ed. BARCODE Not Available 2023 12:33:22 06/09/20 24 06/09/2024 cardi ac monit or No observ ation record ed. gharding [employer] [address] [place] [address], [address], 07/01/2024 15:45:51 06/20/20 24 06/13/2024 exerc polly molina s test No observ ation record ed. [facility] ([facility]) [address] [place] [address], [address], 06/20/2024 14:49:24 06/29/2006/22/2024 US, echoc ardio gram, trans thora cic, compl ete, w/ color flow No observ ation record ed. gharding Not Available 2023 15:02:58 07/07/20 elect rocar diogr am No observ ation record ed. [email or web address] In-Office Order Internal Use Only DO Not Attach Compendium DO Not Attach Compendium, Do Not Delete/merge, [id number] 07/07/2024 09:53:38 07/07/20 24 07/07/2024 elect rocar diogr am No observ ation record ed. [facility]CODE Not Available 2023 16:51:27 07/11/2006/22/2024 US, echoc ardio gram, trans thora cic, compl ete, w/ color flow No observ ation record ed. [email or web address] Not Available 2023 12:02:41 08/14/20 24 06/13/2024 exerc ise stres s test No observ ation record ed. [facility] ([facility]) [address] [place] [address], [address], 08/14/2024 09:24:21 Result Notes None recorded. Problems Name Problem SNOMED Code Status Onset Date Resolution Date Notes Provider Name and Address Organization Details Recorded Time Mixed hyperlipidem ia 349350419 Active 2023 Jacque gregory [facility] 11:43:56 Benign essential hypertension 1896361 Active 2023 Jacque gregory [facility] 4 11:43:57 Irritable bowel syndrome 21370980 Active 2023 Yelitza gregory [facility] 15:01:12 Chronic abfr-IVTYM-7 9 syndrome 9220607412 Active 2023 Yelitza gregory [facility] 4 15:01:12 Bipolar disorder 27742125 Active 2023 Yelitza gregory [facility] 15:01:12 Asthma 571744469 Active 2023 Yelitza gregory [facility] 4 15:01:12 Generalized anxiety disorder 71421504 Active 2023 Yelitza Estrada [facility] 15:01:12 Osteoarthrit is of knee 993247845 Active 2023 Yelitza gregory [facility] 4 15:01:12 Low back pain 783670535 [facility] 15:01:13 Attention deficit hyperactivit y disorder, predominantl y inattentive type 34155460 [facility] 15:01:13 Autism spectrum disorder 56311682 Active 20[facility] 15:01:13 Postural orthostatic tachycardia syndrome 021654255 Active 20[facility] 4 15:01:13 Migraine 85910604 Active 2023 [facility] 4 15:01:13 Posttraumati c stress disorder 08438455 Active 2023 [facility] 4 15:01:13 Essential hypertension 07310988 Active 2023 [facility] 4 15:01:13 Dyslexia 06566698 Active 2023 [facility] 4 15:01:13 Hypermobilit y of joint 006217088 Active [address] [facility] 4 15:01:13 Hiatal hernia 12820891 Active 2023 [facility] 15:01:13 Gender dysphoria 10833422 Active [address] [facility] 15:01:13 Problem Notes None recorded. Procedures Surgical History Date Name Laterality Status Provider Name and Address Organization Details Recorded Time Gallbladder Surgery completed [facility] 05/04/2024 09:02:35 Other Surgeries completed [facility] 05/04/2024 09:02:35 Pyloric Stenosis Repair completed Irena Wilkerson [facility] 05/04/2024 09:18:48 Imaging Results Imaging Date Name Status LastModified by Organization Details LastModified Time 05/04/2024 electrocardiogram completed In-Offi ce Order Internal Use Only DO Not Attach Compendium DO Not Attach Compendium, Do Not Delete/merge, [id number] 05/04/2024 09:02:55 05/04/2024 electrocardiogram completed [facility] Informa tion not available 05/04/2024 12:33:22 06/09/2024 quality assurance monitor completed gharding [employer] [address] [place] [address], [address], 07/01/2024 15:45:51 06/13/2024 exercise stress test completed [facility] ([facility]) [address] [place] [address], [address], 06/20/2024 14:49:24 06/22/2024 US, echocardiogram, transthoracic, complete, w/ color flow completed Information not available 06/29/2024 15:02:58 07/07/2024 electrocardiogram completed [email or web address] In-Offi ce Order Internal Use Only DO Not Attach Compendium DO Not Attach Compendium, Do Not Delete/merge, [id number] 07/07/2024 09:53:38 07/07/2024 electrocardiogram completed [facility] Informa tion not available 07/07/2024 16:51:27 06/22/2024 US, echocardiogram, transthoracic, complete, w/ color flow completed [email or web address] Information not available 07/11/2024 12:02:41 06/13/2024 exercise stress test completed gharding [facility] ([facility]) [address] [place] [address], [address], 08/14/2024 09:24:21 Procedure Notes None recorded. Medical Equipment None Reported. Allergies Allergen ID Allergen Name Allergen Category Reaction Reaction Severity Criticality Documentation Date Start Date Code Code System Note Provider Name and Address Organization Details Recorded Time 673925 Substance with sulfonami de structure and antibacte rial mechanism of action (substanc e) medicatio n other Not available Not available 05/04/2024 69141 8003 SNOMED Irena gregory STELL[facility] 4 09:01:10 814249 house dust allergeni c extract environme nt,medica tion respirato ry distress Not available Not available 05/04/2024 32078 9 RxNorm Irena gregory [facility] 4 09:01:10 Medications Name Sig Start Date [...] Address Organization Details Last Updated DateTime 4 387037. 28 g 31.5 kg/m2 190.5 cm 98 % 98 % 72 /min 136 mm[Hg] 80 mm[Hg] 134 mm[Hg] 78 mm[Hg] Irena Wilkerson [facility]. 09:23:37 Date Recorded Body height Body mass index (BMI) Body weight Heart rate Systolic blood pressure Diastolic blood pressure Provider Name and Address Organization Details Last Updated DateTime 4 190.5 cm 32.7 kg/m2 021461. 2 g 68 /min 110 mm[Hg] 60 mm[Hg] Dora Amanda [facility]. 4 10:03:50 Date Recorded Body height Provider Name an d Address Organization Details Last Updated DateTime 10/04/2024 190.5 cm Shira Kumar [facility] 10/04/2024 09:26:23 Social History Question Answer Notes LastModified by Organizat ion Details LastModified Time Tobacco Smoking Status Never Smoker Irena gregory [facility]. 05/04/2024 09:02:32 Do You Have An Advance [...] Anxious, Or Unable To Sleep At Night)? [id number] Information not available 05/04/2024 Do You Use [...] Heart Attack (Myocardial Infarction) N Cancer N Carotid Disease N Liver Disease/Hepatitis N Implantable Pacemaker/Defibrillator/AICD N Stroke/TIA N Aortic [...] SNOMED-CT Code Diagnosis ICD10 Code Diagnosis Note [id number] Davi Bangura MD [facility] [address] [address] 05/04/2024 08:58:40 05/04/2024 10:24:40 Palpitations 49286442 R00.2 Dyspnea 689616113 R06.02 Benign ess ential hypertension 9546710 I10 Mixed hyperlipidemia 267 099590 E78.2 [id number] Davi Bangura MD [facility] [address], [address] [place] [address] 06/02/2024 13:41:22 06/02/2024 14:39:14 Palpitations 80651660 R00.2 [id number] Lauren Diaz PA-C [facility] [address] [address] 07/07/2024 09:49:53 07/07/2024 10:59:34 Benign essential hypertension 1787963 I10 INCREASE diltiazem to 120mg twice daily Chronic po st-COVID-19 syndrome 0201194984 U09.9 Mixed hyperlipidemia 267 623983 E78.2 Postural o rthostatic tachycardia syndrome 547545540 G90.A Recommend daily fluid intake to 3L of fluids dailyRecom mend daily salt intake to 3.2-4.8g dailyRecom mend wearing compressio n tights daily as tolerated Palpitations 77495935 R0 0.2 INCREASE diltiazem to 120mg twice daily Postural dizziness 23077 7008 R42 Fatigue 19931541 R53.83 [id number] Lauren Diaz PA-C [facility] [address] [facility] [address] [place] [address] 10/04/2024 09:16:58 10/04/2024 11:52:02 Postural orthostatic tachycardia syndrome 539377848 G90.A Mixed hyperlipidemia 267 108505 E78.2 Benign ess ential hypertension 6457538 I10 [address] po [address]-COVID-19 syndrome 3960107696 U09.9 Palpitations 42103906 R0 0.2 Lightheadedness 93522802 8 R42 Dyspnea on exertion 6084 5006 R06.09 Chest pain 60123963 R07. 9 Health Concerns Section Related Observation LastModified by Organization Detai ls LastModified Time None Recorded Concern Status LastModified by Organization Details LastModified Time None Recorded Advance Directives Directive N: Payers Encounter Date Sequence Insurance Name Policy Number Policy Park Covered Member ID Park Member ID Guarantor Name 05/04/2024 1 [facility] [place] Radhamaria teresa Kirby [id number] Radham[employer] teresa Kirby 06/02/2024 1 [facility] [place] Radha Kirby [id number] Radhamaria teresa Kirby 07/07/2024 1 [facility] [place] Radhamaria teresa Kirby [id number] Radhamaria teresa Kirby 10/04/2024 1 [facility] [place] Radhamaria teresa Kirby [id number] Radhamaria teresa Kirby Notes Date Note Type [...] ----US, echocardiogram, transthoracic, complete, w/ color flow [id number] stress test [id number] xt/zio 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. 07/07/2024 11:18:19 10/04/2024 text/html Radha Kirby is presenting to the office for a telemedicine follow up appointment. She has a past medical history of HTN, HLD, chronic covid syndrome, POTS. Her last appointment in our office was on 07/07/24 with az. At this visit we discussed that Radha [...] ----Lipid (03/01/24)Stress (06/13/24)Echo (06/22/24)Monitor (06/09/24) LIBERTAD Santana-Tamara [address] [place] [address], [phone], [facility]. 10/04/2024 10:16:52 OBGyn Episode No OBEpisode recorded.
== END 2025-01-13 12:52 | disposition home or self-care (01) ==
PROVIDERS: PCP Family Medicine; Visit Provider Nurse Practitioner Family
DX: R10.13 Epigastric pain (principal); K21.9 Gastro-esophageal reflux disease without esophagitis; K58.2 Mixed irritable bowel syndrome; R10.10 Upper abdominal pain, unspecified; R14.0 Abdominal distension (gaseous)
CPT/HCPCS: 99214; G2211

== ENCOUNTER 2025-01-23 08:49 | Outpatient (REF) | payer OTHER, SELFPAY ==
--- NOTE | ~2025-01-23 | FL_ITS ---
EXAMINATION: XR UPPER GI SERIES WITH SMALL BOWEL CLINICAL INFORMATION: Gastroesophageal reflux disease without esophagitis. COMPARISON: Ultrasound abdomen complete 11/25/2024 TECHNIQUE: Routine upper GI air contrast study was performed in upright and lying position. FINDINGS: Following oral administration of thick barium and effervescent granules there is normal propagation of bolus from the oral cavity through the pharynx, esophagus into stomach without any evidence of obstruction, narrowing or stricture. No laryngeal penetration or aspiration seen. No retention of barium in the valleculae or piriform sinuses. On placing patient in supine and the mucosal pattern of these stomach and the duodenum is normal. Prone lying, the course, caliber and peristalsis of the stomach, duodenal bulb and sweep is normal. FLUOROSCOPY TIME: 1 minute 22 seconds DOSE AREA PRODUCT: 43.50 uGy-m2 (microgray-meter squared) FL/FL upper GI w air w Ba Swallow IMPRESSION: Unremarkable upper GI double contrast examination. Electronically signed by: Natanael Peña MD 01/23/2025 03:33 PM EDT
--- OUTSIDE RECORDS SUMMARY | 2025-01-23 09:13 | XMS_ITS | Data Portability ---
Author Organization [place] - [facility], Main Office Address [address] [place] [address] Assessment No assessment recorded. Plan of Treatment Reminders Order Date Submit Date Provider Last Modified By Organization Details Last Modified Time Details Appointments None recorded. Lab VIKY (antinuclea r antibodies) screen, ifa, serum 2022 023 [facility], [address] [place] [address], [address], 3 04:48:46 erythrocyte sedimentati on rate by westergren method 2022 023 [facility], [address] [place], [address], 3 04:48:45 C-reactive protein, quantitativ e, serum or plasma 2022 023 [facility], [address] [place] [address], [address], 3 04:48:47 rf (rheumatoid factor), serum 2022 023 [facility], [address] [place], [address], 3 04:48:46 urinalysis, dipstick 2022 023 SANDY HOOK Main Office, [address] [place], [address], 3 16:08:08 CBC w/ auto diff 2022 023 [facility], [address] [place], [address], 3 04:48:45 CMP, serum or plasma 2022 023 [facility], [address] [place], [address], 3 04:48:44 lipid panel, serum 2022 023 [facility], [address] [place], [address], 3 04:48:43 TSH, serum or plasma 2022 023 [facility], [address] [place], [address], 3 04:48:48 Referral None recorded. Procedures None recorded. Surgeries None recorded. Imaging None recorded. Medication Orders bupropion HCl XL 300 mg 24 hr tablet, extended release 2023 024 [id number], [address] [facility], [place], [address], 4 13:27:53 Patient TargetsNo targets recorded. Patient InstructionsNo instructions recorded. Reason for Referral None Reported. Results Created Date Observation Date Name Description Value Unit Range Abnormal Flag Note LastModifiedBy Organization Detail LastModifiedTime 03/30/2003/30/2023 urina lysis , dipst ick Leukocytes negati ve Not Available Main Office [address] [place], [address], 03/30/2023 14:39:52 03/30/2003/30/2023 urina lysis , dipst ick Nitrite negati ve Not Available Main Office [address] [place], [address], 03/30/2023 14:39:52 03/30/20 23 03/30/2023 urina lysis , dipst ick Protein negati ve Not Available Main Office [address] [place], [address], 03/30/2023 14:39:52 03/30/20 23 03/30/2023 urina lysis , dipst ick Blood negati ve Not Available Main Office [address] [place], [address], 03/30/2023 14:39:52 03/30/20 23 03/30/2023 urina lysis , dipst ick Ketone negati ve Not Available Main Office [address] [place], [address], 03/30/2023 14:39:52 03/30/2003/30/2023 urina lysis , dipst ick Glucose negati ve Not Available Main Office [address] [place], [address], 03/30/2023 14:39:52 04/01/20 23 04/02/2023 LIPID PANEL , STAND LAZARO cholesterol, total 263 mg/dL <200 high Not Available [facility] [address], [address], 04/02/2023 06:54:19 04/01/20 23 04/02/2023 LIPID PANEL , STAND LAZARO HDL cholesterol 78 mg/dL > or = 50 normal Not Available [facility] [address], [place], [address], 04/02/2023 06:54:19 04/01/20 23 04/02/2023 LIPID PANEL , STAND LAZARO triglyceride s 110 mg/dL <150 normal Not Available [facility] [address], [address], 04/02/2023 06:54:19 04/01/20 23 04/02/2023 LIPID PANEL [...] 310(1 9): 2061- 206 (http ://ed ucati on.[employer]. [employer]/f aq/FA Q164) Not Available [facility] [place] [facility] [address], [place], [address], 04/02/2023 06:54:19 04/01/20 23 04/02/2023 LIPID PANEL , STAND LAZARO chol/HDLC ratio 3.4 (calc ) <5.0 normal Not Available [facility] [place] [facility] [address], [place], [address], 04/02/2023 06:54:19 04/01/20 23 04/02/2023 LIPID PANEL , STAND LAZARO non HDL cholesterol 185 mg/dL _(lamine c) <130 high For patie nts with diabe sandip plus 1 major ASCVD risk facto r, treat ing to a non-H DL-C goal of <100 mg/dL (LDL- C of <70 mg/dL ) is consi dered a thera pemercy c optio n. Not Available [facility] [place] [facility] [address], [place], [address], 04/02/2023 06:54:19 04/01/2004/02/2023 COMPR EHENS IVONNE METAB OLIC PANEL glucose 85 mg/dL 65-99 normal Fasti ng refer ence inter jeanne Not Available [facility] [place] [facility] [address], [place], [address], 04/02/2023 06:54:21 04/01/20 23 04/02/2023 COMPR EHENS IVONNE METAB OLIC PANEL urea nitrogen (BUN) 13 mg/dL 7-25 normal Not Available [facility] [address] [place], [place], [address], 04/02/2023 06:54:21 04/01/20 23 04/02/2023 COMPR EHENS IVONNE METAB OLIC PANEL creatinine 0.82 mg/dL 0.50-0 .97 normal Not Available [facility] [address] [place], [place], [address], 04/02/2023 06:54:21 04/01/20 23 04/02/2023 COMPR EHENS [...] kdoqi /gfr% 5Fcal culat or Not Available [facility] [address], [place], [address], 04/02/2023 06:54:21 04/01/20 23 04/02/2023 COMPR EHENS IVONNE METAB OLIC PANEL BUN/creatini ne ratio NOT APPLIC ABLE (calc ) 6-22 Not Available [facility] [address] [place], [place], [address], 04/02/2023 06:54:21 04/01/20 23 04/02/2023 COMPR EHENS IVONNE METAB OLIC PANEL sodium 139 mmol/ L 135-14 6 normal Not Available [facility] [address] [place], [place], [address], 04/02/2023 06:54:21 04/01/20 23 04/02/2023 COMPR EHENS IVONNE METAB OLIC PANEL potassium 4.5 mmol/ L 3.5-5. 3 normal Not Available [facility] [address], [place], [address], 04/02/2023 06:54:21 04/01/2004/02/2023 COMPR EHENS IVONNE METAB OLIC PANEL chloride 104 mmol/ L 98-110 normal Not Available [facility] [address], [place], [address], 04/02/2023 06:54:21 04/01/2004/02/2023 COMPR EHENS IVONNE METAB OLIC PANEL carbon dioxide 29 mmol/ L 20-32 normal Not Available [facility] [address], [place], [address], 04/02/2023 06:54:21 04/01/2004/02/2023 COMPR EHENS IVONNE METAB OLIC PANEL calcium 9.6 mg/dL 8.6-10 .2 normal Not Available [facility] [address], [place], [address], 04/02/2023 06:54:21 04/01/2004/02/2023 COMPR EHENS IVONNE METAB OLIC PANEL protein, total 6.6 g/dL 6.1-8. 1 normal Not Available [facility] [address], [place], [address], 04/02/2023 06:54:21 04/01/2004/02/2023 COMPR EHENS IVONNE METAB OLIC PANEL albumin 4.3 g/dL 3.6-5. 1 normal Not Available [facility] [address], [place], [address], 04/02/2023 06:54:21 04/01/20 23 04/02/2023 COMPR EHENS IVONNE METAB OLIC PANEL globulin 2.3 g/dL_ (calc ) 1.9-3. 7 normal Not Available [facility] [address], [place], [address], 04/02/2023 06:54:21 04/01/20 23 04/02/2023 COMPR EHENS IVONNE METAB OLIC PANEL albumin/glob ulin ratio 1.9 (calc ) 1.0-2. 5 normal Not Available [facility] [address], [place], [address], 04/02/2023 06:54:21 04/01/20 23 04/02/2023 COMPR EHENS IVONNE METAB OLIC PANEL bilirubin, total 0.3 mg/dL 0.2-1. 2 normal Not Available [facility] [address], [place], [address], 04/02/2023 06:54:21 04/01/20 23 04/02/2023 COMPR EHENS IVONNE METAB OLIC PANEL alkaline phosphatase 56 U/L 31-125 normal Not Available [facility] [address], [place], [address], 04/02/2023 06:54:21 04/01/20 23 04/02/2023 COMPR EHENS IVONNE METAB OLIC PANEL AST 13 U/L 10-30 normal Not Available [facility] [address], [place], [address], 04/02/2023 06:54:21 04/01/20 23 04/02/2023 COMPR EHENS IVONNE METAB OLIC PANEL ALT 26 U/L 6-29 normal Not Available [facility] [address], [place], [address], 04/02/2023 06:54:21 04/01/2004/02/2023 SED RATE BY MODIF IED WESTE RGREN sed rate by modified westergren 2 mm/h < or = 20 normal Not Available [facility] [place] [facility] [address], [place], [address], 04/02/2023 04:48:45 04/01/20 23 04/02/2023 CBC (INCL UDES DIFF/ PLT) white blood cell count 5.9 thous and/u L 3.8-10 .8 normal Not Available [facility] [place] [facility] [address], [place], [address], 04/02/2023 04:48:45 04/01/20 23 04/02/2023 CBC (INCL UDES DIFF/ PLT) red blood cell count 4.88 zia on/uL 3.80-5 .10 normal Not Available [facility] [address], [place], [address], 04/02/2023 04:48:45 04/01/20 23 04/02/2023 CBC (INCL UDES DIFF/ PLT) hemoglobin 14.2 g/dL 11.7-1 5.5 normal Not Available [facility] [place] [facility] [address], [place], [address], 04/02/2023 04:48:45 04/01/2004/02/2023 CBC (INCL UDES DIFF/ PLT) hematocrit 42.3 % 35.0-4 5.0 normal Not Available [facility] [address], [place], [address], 04/02/2023 04:48:45 04/01/20 23 04/02/2023 CBC (INCL UDES DIFF/ PLT) MCV 86.7 fL 80.0-1 00.0 normal Not Available [facility] [place] [facility] [address], [place], [address], 04/02/2023 04:48:45 04/01/20 23 04/02/2023 CBC (INCL UDES DIFF/ PLT) MCH 29.1 pg 27.0-3 3.0 normal Not Available [facility] [place] [facility] [address], [place], [address], 04/02/2023 04:48:45 04/01/2004/02/2023 CBC (INCL UDES DIFF/ PLT) MCHC 33.6 g/dL 32.0-3 6.0 normal Not Available [facility] [place] [facility] [address], [place], [address], 04/02/2023 04:48:45 04/01/20 23 04/02/2023 CBC (INCL UDES DIFF/ PLT) RDW 12.8 % 11.0-1 5.0 normal Not Available [facility] [place] [facility] [address], [place], [address], 04/02/2023 04:48:45 04/01/20 23 04/02/2023 CBC (INCL UDES DIFF/ PLT) platelet count 268 thous and/u L 140-40 0 normal Not Available [facility] [place] [facility] [address], [place], [address], 04/02/2023 04:48:45 04/01/2004/02/2023 CBC (INCL UDES DIFF/ PLT) MPV 9.7 fL 7.5-12 .5 normal Not Available [facility] [place] [facility] [address], [place], [address], 04/02/2023 04:48:45 04/01/20 23 04/02/2023 CBC (INCL UDES DIFF/ PLT) absolute neutrophils 3688 cells /uL 1500-7 800 normal Not Available [facility] [place] [facility] [address], [place], [address], 04/02/2023 04:48:45 04/01/20 23 04/02/2023 CBC (INCL UDES DIFF/ PLT) absolute lymphocytes 1587 cells /uL 850-39 00 normal Not Available [facility] [place] [facility] [address], [place], [address], 04/02/2023 04:48:45 04/01/20 23 04/02/2023 CBC (INCL UDES DIFF/ PLT) absolute monocytes 413 cells /uL 200-95 0 normal Not Available [facility] [place] [facility] [address], [place], [address], 04/02/2023 04:48:45 04/01/20 23 04/02/2023 CBC (INCL UDES DIFF/ PLT) absolute eosinophils 171 cells /uL 15-500 normal Not Available [facility] [place] [facility] [address], [place], [address], 04/02/2023 04:48:45 04/01/20 23 04/02/2023 CBC (INCL UDES DIFF/ PLT) absolute basophils 41 cells /uL 0-200 normal Not Available [facility] [place] [facility] [address], [place], [address], 04/02/2023 04:48:45 04/01/20 23 04/02/2023 CBC (INCL UDES DIFF/ PLT) neutrophils 62.5 % normal Not Available [facility] [place] [facility] [address], [place], [address], 04/02/2023 04:48:45 04/01/20 23 04/02/2023 CBC (INCL UDES DIFF/ PLT) lymphocytes 26.9 % normal Not Available [facility] [place] [facility] [address], [place], [address], 04/02/2023 04:48:45 04/01/20 23 04/02/2023 CBC (INCL UDES DIFF/ PLT) monocytes 7.0 % normal Not Available [facility] [place] [facility] [address] [place], [place], [address], 04/02/2023 04:48:45 04/01/20 23 04/02/2023 CBC (INCL UDES DIFF/ PLT) eosinophils 2.9 % normal Not Available [facility] [place] [facility] [address] [place], [place], [address], 04/02/2023 04:48:45 04/01/20 23 04/02/2023 CBC (INCL UDES DIFF/ PLT) basophils 0.7 % normal Not Available [facility] [place] [facility] [address] [place], [place], [address], 04/02/2023 04:48:45 04/01/20 23 04/05/2023 VIKY SCREE [...] bull purpo ses only. ) Not Available [facility] [place] [facility] [address], [address], 04/05/2023 14:35:53 04/01/20 23 04/02/2023 RHEUM ATOID FACTO R rheumatoid factor <14 IU/mL <14 normal Not Available [facility] [place] [facility] [address], [place], [address], 04/02/2023 13:30:15 04/01/20 23 04/02/2023 C-NIRU CTIVE PROTE IN C-reactive protein 1.6 mg/L <8.0 normal Not Available [facility] [place] [facility] [address], [place], [address], 04/02/2023 13:30:16 04/01/20 23 04/02/2023 TSH TSH 2.85 mIU/L normal Refer ence Range > or = 20 Years 0.40- 4.50 Pregn kelly Range s First trime ster 0.26- 2.66 Secon d trime ster 0.55- 2.73 Third trime ster 0.43- 2.91 Not Available [facility] [address], [place], [address], 04/02/2023 06:54:28 Result Notes None recorded. Problems Name Problem SNOMED Code Status Onset Date Resolution Date Notes Provider Name and Address Organization Details Recorded Time Gender dysphoria 60597003 Active 2022 Not Available [facility] 3 12:28:14 Bipolar I disorder 573763375 Active 2022 Not Available [facility] 3 12:28:14 Major depressive disorder 431404215 Active 2022 Not Available [facility] 3 12:28:14 Generalize d anxiety disorder 51518428 Active 2022 Not Available [facility] 3 12:28:14 Chronic post-traum atic stress disorder 346402634 Active 2022 Not Available [facility] 3 12:28:14 Attention deficit hyperactiv ity disorder 843305339 Active 2022 Not Available [facility] 3 12:28:14 Autism spectrum disorder 97956206 Active 2022 Not Available [facility] 3 12:28:14 Dyslexia 25757908 Active 2022 Not Available [facility] 3 12:28:14 Insomnia 598341006 Active 2022 Not Available [facility] 3 12:28:14 Eating disorder in remission 235185500 Active 2022 Not Available [facility] 3 12:28:14 Vitamin D deficiency 52175080 Active 2022 Not Available [facility] 3 12:28:14 Irritable bowel syndrome 12379643 Active 2022 Not Available [facility] 3 12:28:14 Delayed gastric emptying 010918428 Active 2022 Not Available [facility] 3 12:28:14 Gastroesop hageal reflux disease 821266257 Active 2022 Not Available [facility] 3 12:28:14 Hiatal hernia 93715524 Active 2022 Not Available [facility] 3 12:28:14 Essential hypertensi on 72676573 Active 2022 Not Available [facility] 3 12:28:14 Post-acute COVID-19 5862730207 Active 2022 Not Available [facility] 3 12:28:14 Asthma 037195912 Active 2022 Not Available [facility] 3 12:28:14 Osteoarthr itis of knee 563469771 Active 2022 Not Available [facility] 3 12:28:14 Achilles tendinitis 81950538 Active 2022 Not Available [facility] 3 12:28:14 Hypermobil ity syndrome 62294483 Active 2022 Not Available [facility] 3 12:28:14 Congenital pes planus 01748149 Active 2022 Not Available [facility] 3 12:28:14 Chronic migraine without aura 7353282775757 05 Active 2022 Not Available [facility] 3 12:28:14 Problem Notes None recorded. Procedures Surgical History Date Name Laterality Status Provider Name and Address Organization Details Recorded Time 09/21/19 20 cholecystectomy completed MANUELA GERARDO PA-C [address] [place] [address], [phone], [facility] 03/30/2023 15:07:46 [...] anaphylax is Not available Not available 03/30/2023 85127 8003 SNOMED Judi gregory [facility] 3 14:37:42 Medications Name Sig Start Date Stop Date [...] /min 98 % 98 % 31.9 kg/m2 608289. 28 g 110 mm[Hg] 72 mm[Hg] Judi Worrell [facility] 14:51:25 Date Recorded Body height Provider Name an d Address Organization Details Last Updated DateTime 01/11/2024 189.23 cm Dory sheehan PA [address] [place] [address], [phone], [facility] 01/11/2024 13:13:15 Social History Question Answer Notes LastModified by Organizat ion Details LastModified Time Tobacco Smoking Status Never Smoker Judi gregory [facility] 03/30/2023 14:48:52 What Is Your Level Of Alcohol Consumption? Occasional Information not available 03/30/2023 Are You Blind Or Do You Have Difficulty Seeing? No Information not available 03/30/2023 What Is Your Level Of Caffeine Consumption? Moderate Information not available 03/30/2023 What Type Of Family Service Aide Do You Use? None Information not available [...] In The Last 12 Month [employer] Threatened To Shut Off Services In Your [...] Anxious, Or Unable To Sleep At Night)? [id number] Information not available 03/30/2023 Do You Use [...] pamela-sucrose, 30 mcg/0.3 mL 08/05/2023 completed Miladys gregory [facility] 08/08/2023 18:35:35 Tdap 07/21/2024 completed Miladys gregory [place] [facility] 10/24/2024 09:54:26 COVID-19, mRNA, LNP-S, PF, 50 mcg/0.5 mL 10/22/2024 completed Miladys gregory [place] [facility] 10/24/2024 09:54:40 Past Encounters Encounter ID Performer Location Encounter Start Date Encounter Closed Date Diagnosis/Indication Diagnosis SNOMED-CT Code Diagnosis ICD10 Code Diagnosis Note [id number] Michoacano Alarcon MD Main Office [address] [place] [address] 03/30/2023 14:31:58 03/30/2023 15:57:42 Adult health examination 781813979 Z00.00 38 yo trans female with a complex medical history presenting today as a new patient for annual exam. She has many chronic conditions as listed below. However, most of them are currently stable. She is not fasting today, will put in orders to an outside quest for FBW. Asthma 987943132 J45.90 9 See above. Uses flovent and albuterol PRN. She is not seeing a pulmonolog ist. Vitamin D deficiency 347 40802 E55.9 Taking daily vitamin d. Stable under current management plan based on subjective and objective findings. Essential hypertension 11666223 I10 Taking lisinopril 20 mg daily. BP today is 110/72. Stable under current management plan based on subjective and objective findings. Gastroesop hageal reflux disease 564801750 K21.9 See above. Followed by GI. Taking omeprazole daily. Irritable bowel syndrome 01453071 K58.9 Patient has IBS primarily constipati on. She is in the process of getting worked up for other GI conditions with her GI specialist out of [facility]. She has a colonoscop y scheduled for later this week. Post-acute COVID-19 1119 453012 U09.9 Patient had covid 2+ years ago and is still experienci ng chronic respirator y symptoms. She reports persistent wheezing and shortness of breath. She is working on getting set up with a long covid specialist in [place]. Osteoarthr itis of knee 820988694 M17.9 Patient has chronic pain due to arthritis. Of note, her mother has RA. Will check an VIKY as well as inflammato ry markers to rule out an autoimmune inflammato ry cause of her symptoms. Hiatal hernia 41448878 K 44.9 See above. Delayed ga stric emptying 942373224 K30 See above. Hypermobil ity syndrome 05311997 M35.7 She would like to have genetic testing done in the future for evaluation of connective tissue disorders. Congenital pes planus 23 964921 Q66.50 She is getting custom orthotics later this week. Achilles tendinitis 1165 4001 M76.60 See above. Chronic mi graine without aura 7677436563 37672 G43.709 Currently is having 2-3 migraines per month. Stable under current management plan based on subjective and objective findings. Bipolar I disorder 88050 6008 F31.9 Seeing a therapist regularly but is not currently seeing a psychiatri st. She is taking bupropion 300 mg daily and buspar 15 mg BID with good effect. She also uses hydroxyzin e PRN for anxiety. She is looking to get set up with another psychiatri st in the future. Informatio n given today. Major depr essive disorder 861109651 F32.9 See above. Attention deficit hyperactivity disorder 579409184 F90.9 Not currently on medication . Stable under current management plan based on subjective and objective findings. Chronic post-traumatic stress disorder 430973155 F43.12 See above. Autism spe ctrum disorder 02368428 F84.0 Stable under current management plan based on subjective and objective findings. Generalize d anxiety disorder 09909980 F41.1 See above. Dyslexia 70933444 F81.0 Stable under current management plan based on subjective and objective findings. Gender dysphoria 2556768 9 F64.9 She is stable on hormone therapy. She is not currently seeing a specialist for management of hormones. Will manage hormones moving forward unless she requires dose adjustment s. Eating dis order in remission 504830959 F50.9 Stable under current management plan based on subjective and objective findings. Insomnia 855634801 G47.0 0 Stable under current management plan based on subjective and objective findings. [id number] Michoacano Alarcon MD Main Office [address] [place] [id number] 01/11/2024 13:02:56 01/11/2024 16:42:34 Bipolar I disorder 792667123 F31.9 Seeing a therapist regularly but is not currently seeing a psychiatri st. She is taking bupropion 300 mg daily and buspar 15 mg BID with good effect. She also uses hydroxyzin e PRN for anxiety. She is looking to get set up with another psychiatri st but has recently moved to [place], [place] and is wait listed.She has switched her insurance to try to obtain a psychiatri st. 3-months of bupropion 300mg XL was prescribed today. Patient was informed that she needs to find a PCP and psychiatri st to take over care. Hypermobil ity of joint 201619046 R29.898 Patient reports she has hypermobil ity in her joints. She would like to be evaluated for possible EDS. Advised patient to call her insurance to find a ui developer with [employer] . From there, she can seek a [...] Park Member ID Guarantor Name 03/30/2023 1 [facility] DIRECT CONNECTORCARE TYPE I (HMO) [id number] Radha Kirby [id number] Radha Kirby 01/11/2024 1 [facility] TYPE I (HMO) [id number] Radha Mirta [id number] 19 Januarymaria teresa Kirby Notes Date Note Type Note Provider Name and Address Organization Details Recorded Time 03/30/2023 text/html 38 yo trans female with a complex medical history presenting today as a new patient for annual exam. Michoacano Alarcon MD [facility] [place], [address], [facility] INTER[facility] MEDICINE ASSOCIATE 04/01/2023 08:40:43 01/11/2024 text/html 38 yo trans female with a complex medical history presenting today for a medication follow up. Michoacano Alarcon MD [address] [place], [address], [facility] 01/11/2024 13:48:52 OBGyn Episode No OBEpisode recorded.
--- OUTSIDE RECORDS SUMMARY | 2025-01-23 09:13 | XMS_ITS | Referral Summary ---
Author Organization [facility] Address [address] [place] [address] Care Team Providers Care Tool Specialist Name Role Phone Kenia Wiggins Primary Care Provider + [phone] Allergies Active Allergy Reactions Criticality Noted Date [...] [employer] OUT [employer] STATE P[employer] Care Teams Tool Specialist Relationship Specialty Start Date End Date Kenia Wiggins [address] [place] [phone] PCP - General Sports Medicine 10/18/19
--- OUTSIDE RECORDS SUMMARY | 2025-01-23 09:13 | XMS_ITS | Clinical Summary ---
Author Organization [facility] Address [address] [place] [address] Care Team Providers [place] Health Officer Name Role Phone Unavailable Primary Care Provider [...] ( - 2023-2 5 season) 2024 Influenza (Season Ended) 2025 Zoster (Shingrix) (1 of 2) 2036 HPV [...]
--- OUTSIDE RECORDS SUMMARY | 2025-01-23 09:13 | XMS_ITS | Data Portability ---
Author Organization [facility] Services Address [address] [place] [address] Care Team Providers Care [employer] Name Role Phone MARIUSZ WIGGINS Primary Care Provider MARIUSZ WIGGINS Transgender Medicine Assessment Encounter Date Assessment Date Assessment LastModified by Organization Details LastModified Time 08/07/2022 08/07/2022 Time spent by the rendering clinician on the day of appointment, for patient preparation, direct care, documentation and care coordination: 50 minutes - Office visit; established patient, level V appt took 60 minutes Not available 08/10/2022 16:11:42 09/23/2022 09/23/2022 Time spent by the rendering clinician on the day of appointment, for patient preparation, direct care, documentation and care coordination: 35 minutes - Office visit; established patient, level IV [email or web address] Not available 09/23/2022 18:44:19 10/14/2022 10/14/2022 Time spent by the rendering clinician on the day of appointment, for patient preparation, direct care, documentation and care coordination: 30 minutes - Office visit; established patient, level IV [email or web address] Not available 10/14/2022 18:52:36 02/03/2023 02/03/2023 Time spent by the rendering clinician on the day of appointment, for patient preparation, direct care, documentation and care coordination: 40 minutes - Office visit; established patient, level V Not available 02/03/2023 17:04:00 Plan of Treatment Reminders Order Date Submit Date Provider Last Modified By Organization Details Last Modified Time Details Appointments None recorded. Lab estradiol, serum 2022 023 [email or web address] 9 [facility], [address] [place] [address], [phone], 3 13:11:38 testosteron e, total, serum 2022 023 [email or web address] 9 [facility], [address] [place] [address], [address], 3 13:11:38 prolactin, serum 2022 023 [email or web address] 9 [facility], [address] [place] [address], [address], 3 13:11:38 microalbumi n/creatinin e, ratio, urine 2021 022 [email or web address] Minutes [facility] - [facility], [address] [place], [address], 2 16:52:26 erythrocyte sedimentati on rate, QN, blood 2021 022 [employer]baumgart [employer]4 [facility] - [facility], [address] [place], [address], 2 16:53:13 VIKY (antinuclea r antibodies) screen, serum 2021 022 [employer]gart [employer]4 [facility], [address] [place], [address], 2 16:53:21 TSH, serum or plasma 2021 022 [employer]gart [employer]4 [facility], [address] [place], [address], 2 16:53:32 rf (rheumatoid factor), serum 2021 022 kbaumgart nereReplacements [facility], [address] [place], [address], 16:53:27 lyme igg + igm Ab, western blot, serum [address] [facility] - [facility], [address] [place], [address], 16:53:38 erythrocyte sedimentati on rate by westergren method 2021 [facility], [address] [place] [address], [address], 15:39:36 VIKY (antinuclea r antibodies) screen, ifa, serum 2021 [facility], [address] [place] [address], [address], 15:39:39 TSH, serum or plasma 2021 [facility], [address] [place] [address], [address], 15:39:47 rf (rheumatoid factor), serum 2021 [facility], [address] [place] [address], [address], 15:39:40 lyme disease igg+igm, serum, reflex western blot 2021 [facility], [address] [place] [address], [address], 15:39:38 HbA1c (hemoglobin A1c), blood [address] [facility] - [facility], [address] [place], [address], 16:46:26 estradiol, serum [address] [facility] - [facility], [address] [place], [address], 2 16:51:24 CMP, serum or plasma [address] - [facility], [address] [place], [address], 2 16:51:32 HbA1c (hemoglobin A1c), blood [address] [facility] - [facility], [address] [place], [address], 2 16:51:46 CBC w/ auto diff [address] - [facility], [address] [place], [address], 2 16:51:53 prolactin, serum [address] - [facility], [address] [place], [address], 2 16:52:02 testosteron e, total, serum [address] - [facility], [address] [place], [address], 2 16:52:09 lipid panel, serum [address] - [facility], [address] [place], [address], 2 16:52:15 HbA1c (hemoglobin A1c), blood 2021 022 [employer] [facility], [address] [place] [address], [address], 2 15:39:48 estradiol, serum 2021 022 [employer] [facility], [address] [place] [address], [address], 15:39:46 CMP, serum or plasma 2021 [facility], [address] [place] [address], [address], 15:39:33 CBC w/ auto diff 2021 [facility], [address] [place] [address], [address], 15:39:37 prolactin, serum 2021 [facility], [address] [place] [address], [address], 15:39:45 testosteron e, total, serum 2021 [facility], [address] [place] [address], [address], 15:39:34 lipid panel, serum 2021 [facility], [address] [place] [address], [address], 15:39:32 hepatitis C Ab, serum 2021 kbaumgart ner4 [facility], [address] [place], [address], 2 16:52:34 syphilis Ab, igg 2021 [employer]baumgart ner4 [facility], [address] [place], [address], 2 16:52:41 HBsAg (hepatitis B surface Ag), serum 2021 kbaumgart ner4 [facility], [address] [place], [address], 2 16:52:48 hepatitis B surface Ab, quantitativ e, serum 2021 022 kbaumgart ner4 [facility], [address] [place], [address], 2 16:52:54 HIV 1+2 AB + HIV 1 p24 Ag, qualitative immunoassay , serum [address] - [facility], [address] [place], [address], 2 16:52:59 CT + NG DNA, PCR, urine [address] - [facility], [address] [place], [address], 2 16:53:05 hepatitis C virus Ab, serum 2021 [employer] [facility], [address] [place] [address], [address], 2 15:39:42 RPR (rapid plasma reagin), serum 2021 [employer] [facility], [address] [place] [address], [address], 2 15:39:50 hepatitis B surface Ab, quantitativ e, serum 2021 [employer] [facility], [address] [place] [address], [address], 2 15:39:43 HBsAg (hepatitis B surface Ag), serum 2021 [employer] [facility], [address] [place] [address], [address], 15:39:41 HIV 1+2 Ab + HIV1 p24 Ag, quantitativ e immunoassay , serum 2021 [employer] [facility], [address] [place] [address], [address], 15:39:44 CT + NG RNA, PCR, unspecified specimen 2021 [employer] [facility], [address] [facility] [place], [place], [address], 15:39:49 Referral None recorded. Procedures None recorded. Surgeries None recorded. Imaging None recorded. Medication Orders lisinopril 20 mg tablet 2022 023 [facility], [address] [place] [address], [address], 3 18:49:00 omega-3 fatty acids 1,000 mg capsule 2022 023 [facility], [address] [place] [address], [address], 3 18:33:37 psyllium husk 0.52 gram capsule 2021 [facility], [address] [place] [address], [address], 16:32:02 Provera 2.5 mg tablet 2021 [facility], [address] [place] [address], [address], 14:48:48 finasteride 1 mg tablet 2021 [facility], [address] [place] [address], [address], 14:48:48 Vitamin D3 50 mcg (2,000 unit) capsule 2021 [facility], [address] [place] [address], [address], 16:32:02 Patient TargetsNo targets recorded. Patient Instructions Encounter Date Encounter Id Patient Instructions Last Modified By Organization Details Last Modified Time 08/07/2022 [id number] [facility] Resources Handout Not available 08/07/2022 14:19:54 social determinants of health survey* Not available 08/07/2022 14:19:54 Reason for Referral None Reported. Results Created Date Observation Date Name Description Value Unit Range Abnormal Flag Note LastModifiedBy Organization Detail LastModifiedTime 08/07/20 22 08/07/2022 [facility]* S1 In the last 12 mo, have you been threatened with eviction or foreclosure or been forced to move? No (-) Not Available [address], [address], 08/07/2022 13:43:17 08/07/20 22 08/07/2022 alexis lezama minkatherin [facility]* S2 Are you worried about the conditions of your housing (infestation , mold, overdue repairs)? No (-) Not Available [address], [address], 08/07/2022 13:43:17 08/07/20 22 08/07/2022 alexis torres [facility] surve [facility]* S3 Do you ever have trouble making ends meet at the end of the month? Never (-) Not Available [address], [address], 08/07/2022 13:43:17 08/07/20 22 08/07/2022 gurpreeta ml lezama minkatherin [facility] surve y* S4 In last 12 mo, have you worried that your food would run out before you got money to buy more? Never (-) Not Available [address], [address], 08/07/2022 13:43:17 08/07/20 22 08/07/2022 alexis torres [facility] surve y* S5 In the last 12 months, has the food you bought not lasted and there was no money to buy more? Never (-) Not Available [address], [address], 08/07/2022 13:43:17 08/07/20 22 08/07/2022 alexis torres [facility] surve y* S6 How often do you need help to read written materials from your doctor or pharmacy? Never (-) Not Available [address], [address], 08/07/2022 13:43:17 08/07/20 22 08/07/2022 alexis torrse ts of healt h surve y* S7 Are you concerned about your family's health and stability for any immigration- related reason? No (-) Not Available [address], [address], 08/07/2022 13:43:17 08/07/20 22 08/07/2022 alexis torres [facility] surve y* S8 In the last 12 mo, have you / family missed a medical appt due to lack of transportati on? Yes (+) Not Available [address], [address], 08/07/2022 13:43:17 08/07/20 22 08/07/2022 alexis torres [facility] surve y* S9 In past 12mo, has electric/gas /oil/water [employer] threatened to shut off services in your home? No (-) Not Available [address], [address], 08/07/2022 13:43:17 08/07/20 22 08/07/2022 alexis torres [facility] surve y* S10 Have you been hit, kicked, punched, or otherwise hurt by someone in the last year? No (-) Not Available [address], [address], 08/07/2022 13:43:17 08/07/20 22 08/07/2022 [facility]is [facility]res [facility] S11 How often do you feel lonely or isolated from those around you? Never (-) Not Available [address], [address], 08/07/2022 13:43:17 08/07/20 22 08/07/2022 alexis torres [facility]* S12 CSS Appointment Declin ed Not Available [address], [address], 08/07/2022 13:43:17 08/07/20 22 08/07/2022 alexis torres ts of [facility] surve y* S13 Resource Handout Declin ed Not Available [address], [address], 08/07/2022 13:43:17 08/18/20 22 08/21/2022 LIPID PANEL , STAND LAZARO cholesterol, total 270 mg/dL <200 high Not Available [facility] [address], [address], 08/21/2022 15:39:32 08/18/20 22 08/21/2022 LIPID PANEL , STAND LAZARO HDL cholesterol 49 mg/dL > or = 50 low Not Available [facility] [address], [address], 08/21/2022 15:39:32 08/18/20 22 08/21/2022 LIPID PANEL , STAND LAZARO triglyceride s 231 mg/dL <150 high If a non-f astin g speci men was colle cted, consi dara repea t trigl yceri de testi ng on a fasti ng speci men if clini [place] indic ated. [employer] johansen et al. J. of Clin. Lipid ol. 2015; 9:129 -169. Not Available [facility] [address], [address], 08/21/2022 15:39:32 08/18/20 22 08/21/2022 LIPID PANEL , STAND LAZARO LDL-choleste rol 178 mg/dL _(lamine c) high Refer ence range : <100 Roxana able range <100 mg/dL for prima ry preve ntion ; <70 mg/dL for patie nts with CHD or diabe tic patie nts with > or = 2 CHD risk facto rs. LDL-C is now calcu lated using the Isi n-Hop kins calcu latio n, which is a valid ated novel kimberlee d arcelia miller r accur acy than the Fried james equat ion in the estim ation of LDL-C . Isi hawkins SS et al. KELSEY. 2013; 310(1 9): 2061- 206 (http ://ed ucati on.[employer]. YesVideo/f aq/FA Q164) Not Available [facility] [address], [address], 08/21/2022 15:39:32 08/18/20 22 08/21/2022 LIPID PANEL , STAND LAZARO chol/HDLC ratio 5.5 (calc ) <5.0 high Not Available [facility] [address], [address], 08/21/2022 15:39:32 08/18/20 22 08/21/2022 LIPID PANEL , STAND LAZARO non HDL cholesterol 221 mg/dL _(lamine c) <130 high Non-H DL level > or = 220 is very high and may indic ate yoli ic famil ial hyper tommy stero lemia (FH). Clini lamine asses sment and measu remen t of blood lipid level s shoul d be consi dered for all first -degr ee relat julieta of patie nts with an FH diagn osis. For patie nts with diabe sandip plus 1 major ASCVD risk facto r, treat ing to a non-H DL-C goal of <100 mg/dL (LDL- C of <70 mg/dL ) is consi jareth lai optio n. Not Available [facility] [address] [place], [place], [address], 08/21/2022 15:39:32 08/18/20 22 08/21/2022 COMPR EHENS IVONNE METAB OLIC PANEL glucose 92 mg/dL 65-99 normal Fasti ng refer ence inter jeanne Not Available [facility] [address], [place], [address], 08/21/2022 15:39:33 08/18/20 22 08/21/2022 COMPR EHENS IVONNE METAB OLIC PANEL urea nitrogen (BUN) 11 mg/dL 7-25 normal Not Available [facility] [address], [place], [address], 08/21/2022 15:39:33 08/18/20 22 08/21/2022 COMPR EHENS IVONNE METAB OLIC PANEL creatinine 0.76 mg/dL 0.50-0 .97 normal Not Available [facility] [address], [place], [address], 08/21/2022 15:39:33 08/18/20 22 08/21/2022 COMPR EHENS IVONNE METAB OLIC PANEL eGFR 104 mL/mi n/1.7 3m2 > or = 60 normal The eGFR is based on the CKD-E PI 2020 losat ion. To calcu late the new eGFR from a previ ous Creat inine or Cysta kate C resul t, go to https ://mars clark.matti hopson/elisha lopez/ kdoqi /gfr% 5Fcal culat or Not Available [facility] [address], [place], [address], 08/21/2022 15:39:33 08/18/20 22 08/21/2022 COMPR EHENS IVONNE METAB OLIC PANEL BUN/creatini ne ratio NOT APPLIC ABLE (calc ) 6-22 Not Available [facility] [address], [place], [address], 08/21/2022 15:39:33 08/18/20 22 08/21/2022 COMPR EHENS IVONNE METAB OLIC PANEL sodium 137 mmol/ L 135-14 6 normal Not Available [facility] [address], [place], [address], 08/21/2022 15:39:33 08/18/20 22 08/21/2022 COMPR EHENS IVONNE METAB OLIC PANEL potassium 4.2 mmol/ L 3.5-5. 3 normal Not Available [facility] [address], [place], [address], 08/21/2022 15:39:33 08/18/20 22 08/21/2022 COMPR EHENS IVONNE METAB OLIC PANEL chloride 104 mmol/ L 98-110 normal Not Available [facility] [address], [place], [address], 08/21/2022 15:39:33 08/18/20 22 08/21/2022 COMPR EHENS IVONNE METAB OLIC PANEL carbon dioxide 27 mmol/ L 20-32 normal Not Available [facility] [address], [place], [address], 08/21/2022 15:39:33 08/18/20 22 08/21/2022 COMPR EHENS IVONNE METAB OLIC PANEL calcium 9.2 mg/dL 8.6-10 .2 normal Not Available [facility] [address], [place], [address], 08/21/2022 15:39:33 08/18/20 22 08/21/2022 COMPR EHENS IVONNE METAB OLIC PANEL protein, total 6.6 g/dL 6.1-8. 1 normal Not Available [facility] [address], [place], [address], 08/21/2022 15:39:33 08/18/20 22 08/21/2022 COMPR EHENS IVONNE METAB OLIC PANEL albumin 4.3 g/dL 3.6-5. 1 normal Not Available [facility] [address], [place], [address], 08/21/2022 15:39:33 08/18/20 22 08/21/2022 COMPR EHENS IVONNE METAB OLIC PANEL globulin 2.3 g/dL_ (calc ) 1.9-3. 7 normal Not Available [facility] [address], [place], [address], 08/21/2022 15:39:33 08/18/20 22 08/21/2022 COMPR EHENS IVONNE METAB OLIC PANEL albumin/glob ulin ratio 1.9 (calc ) 1.0-2. 5 normal Not Available [facility] [address], [place], [address], 08/21/2022 15:39:33 08/18/20 22 08/21/2022 COMPR EHENS IVONNE METAB OLIC PANEL bilirubin, total 0.5 mg/dL 0.2-1. 2 normal Not Available [facility] [address], [place], [address], 08/21/2022 15:39:33 08/18/20 22 08/21/2022 COMPR EHENS IVONNE METAB OLIC PANEL alkaline phosphatase 60 U/L 31-125 normal Not Available [facility] [address], [place], [address], 08/21/2022 15:39:33 08/18/20 22 08/21/2022 COMPR EHENS IVONNE METAB OLIC PANEL AST 14 U/L 10-30 normal Not Available [facility] [address], [place], [address], 08/21/2022 15:39:33 08/18/20 22 08/21/2022 COMPR EHENS IVONNE METAB OLIC PANEL ALT 30 U/L 6-29 high Not Available [facility] [address], [place], [address], 08/21/2022 15:39:33 08/18/20 22 08/21/2022 TESTO STERO NE, TOTAL , MS testosterone , total, MS 13 NG/dL 2-45 For addit ional infor maria e newell e refer to http: //[facility] claudio marcusque stdia gnost ics.c om/fa q/ Total Testo stero neLCM SMSFA Q165 (This link is being provi ded for infor edgar nal/ educa loulou l purpo ses only. ) This test was devel oped and its shira tical perfo rmanc e hetal cteri stics have been deter mined by [facility] Nnamdi segundo [place], [place]. It has not been clear ed or appro lety by the U.S. Food and Drug Admin istra tion. This assay has been valid ated pursu ant to the CLIA regul ation s and is used for clini lamine purpo ses. Not Available [facility] [address], [place], [address], 08/21/2022 15:39:34 08/18/20 22 08/21/2022 SED RATE BY MODIF IED WESTE RGREN sed rate by modified westergren 6 mm/h < or = 20 normal Not Available [facility] [address], [place], [address], 08/21/2022 15:39:35 08/18/20 22 08/21/2022 CBC (INCL UDES DIFF/ PLT) white blood cell count 6.3 thous and/u L 3.8-10 .8 normal Not Available [facility] [address], [place], [address], 08/21/2022 15:39:36 08/18/20 22 08/21/2022 CBC (INCL UDES DIFF/ PLT) red blood cell count 4.95 zia on/uL 3.80-5 .10 normal Not Available [facility] [address], [place], [address], 08/21/2022 15:39:36 08/18/20 22 08/21/2022 CBC (INCL UDES DIFF/ PLT) hemoglobin 14.3 g/dL 11.7-1 5.5 normal Not Available [facility] [address], [place], [address], 08/21/2022 15:39:36 08/18/20 22 08/21/2022 CBC (INCL UDES DIFF/ PLT) hematocrit 42.5 % 35.0-4 5.0 normal Not Available [facility] [address], [place], [address], 08/21/2022 15:39:36 08/18/20 22 08/21/2022 CBC (INCL UDES DIFF/ PLT) MCV 85.9 fL 80.0-1 00.0 normal Not Available [facility] [address], [place], [address], 08/21/2022 15:39:36 08/18/20 22 08/21/2022 CBC (INCL UDES DIFF/ PLT) MCH 28.9 pg 27.0-3 3.0 normal Not Available [facility] [address], [place], [address], 08/21/2022 15:39:36 08/18/20 22 08/21/2022 CBC (INCL UDES DIFF/ PLT) MCHC 33.6 g/dL 32.0-3 6.0 normal Not Available [facility] [address], [place], [address], 08/21/2022 15:39:36 08/18/20 22 08/21/2022 CBC (INCL UDES DIFF/ PLT) RDW 12.6 % 11.0-1 5.0 normal Not Available [facility] [address], [place], [address], 08/21/2022 15:39:36 08/18/20 22 08/21/2022 CBC (INCL UDES DIFF/ PLT) platelet count 306 thous and/u L 140-40 0 normal Not Available [facility] [address], [place], [address], 08/21/2022 15:39:36 08/18/20 22 08/21/2022 CBC (INCL UDES DIFF/ PLT) MPV 10.0 fL 7.5-12 .5 normal Not Available [facility] [address], [place], [address], 08/21/2022 15:39:36 08/18/20 22 08/21/2022 CBC (INCL UDES DIFF/ PLT) absolute neutrophils 4045 cells /uL 1500-7 800 normal Not Available [facility] [address], [place], [address], 08/21/2022 15:39:36 08/18/20 22 08/21/2022 CBC (INCL UDES DIFF/ PLT) absolute lymphocytes 1531 cells /uL 850-39 00 normal Not Available [facility] [address], [place], [address], 08/21/2022 15:39:36 08/18/20 22 08/21/2022 CBC (INCL UDES DIFF/ PLT) absolute monocytes 473 cells /uL 200-95 0 normal Not Available [facility] [address], [place], [address], 08/21/2022 15:39:36 08/18/20 22 08/21/2022 CBC (INCL UDES DIFF/ PLT) absolute eosinophils 202 cells /uL 15-500 normal Not Available [facility] [address], [place], [address], 08/21/2022 15:39:36 08/18/20 22 08/21/2022 CBC (INCL UDES DIFF/ PLT) absolute basophils 50 cells /uL 0-200 normal Not Available [facility] [address], [place], [address], 08/21/2022 15:39:36 08/18/20 22 08/21/2022 CBC (INCL UDES DIFF/ PLT) neutrophils 64.2 % normal Not Available [facility] [address], [place], [address], 08/21/2022 15:39:36 08/18/20 22 08/21/2022 CBC (INCL UDES DIFF/ PLT) lymphocytes 24.3 % normal Not Available [facility] [address], [place], [address], 08/21/2022 15:39:36 08/18/20 22 08/21/2022 CBC (INCL UDES DIFF/ PLT) monocytes 7.5 % normal Not Available [facility] [address], [place], [address], 08/21/2022 15:39:36 08/18/20 22 08/21/2022 CBC (INCL UDES DIFF/ PLT) eosinophils 3.2 % normal Not Available [facility] [address], [address], 08/21/2022 15:39:36 08/18/20 22 08/21/2022 CBC (INCL UDES DIFF/ PLT) basophils 0.8 % normal Not Available [facility] [address], [address], 08/21/2022 15:39:36 08/18/20 22 08/21/2022 LYME DISEA SE AB W/REF L TO BLOT (IGG, IGM) lyme Ab screen <0.90 index normal Index Inter preta tion ----- ----- ----- ---- < 0.90 Negat ivonne 0.90- 1.09 Equiv ocal > 1.09 Posit ivonne As recom amanda d by the Food and Drug Admin istra tion (FDA) , all sampl es with posit ivonne or equiv ocal resul ts in a Borre octavia burgd orfer i antib clifton scree n will be teste d using a blot metho d. Posit ivonne or equiv ocal scree criss test resul ts shoul d not be inter prete d as truly posit ivonne until verif ied as such using a suppl ement al assay (e.g. , B. burgd orfer i blot) . The scree criss test and/o r blot for B. burgd orfer i antib odies may be false ly negat ivonne in early stage s of Lyme disea se, inclu ding the perio d when eryth beau migra ns is appar ent. Not Available [facility] [address], [place], [address], 08/21/2022 15:39:38 08/18/20 22 08/21/2022 VIKY SCREE N, IFA, W/REF L TITER [...] Patte rns (http s://d oi.or g/10. 1515/ [facility]2017- 0052) For addit ional infor maria e newell e refer to http: //[facility] claudio hawkins.Que stDia gnost ics.c om/fa q/FAQ 177 (This link is being provi ded for infor edgar arnett/ educa loulou bull purpo ses only. ) Not Available [facility] [place] [facility] [address], [address], 08/21/2022 15:39:39 08/18/20 22 08/21/2022 RHEUM ATOID FACTO R rheumatoid factor <14 IU/mL <14 normal Not Available [facility] [place] [facility] [address], [address], 08/21/2022 15:39:40 08/18/20 22 08/21/2022 HEPAT ITIS B SURFA CE ANTIG EN W/REF L CONFI RM hepatitis B surface antigen NON-RE ACTIVE non-re active normal Not Available [facility] [address], [address], 08/21/2022 15:39:41 08/18/20 22 08/21/2022 HEPAT ITIS C AB W/REF L TO HCV RNA, QN, PCR hepatitis C antibody NON-RE ACTIVE non-re active normal Not Available [facility] [place] [facility] [address], [place], [address], 08/21/2022 15:39:42 08/18/20 22 08/21/2022 HEPAT ITIS C AB W/REF L TO HCV RNA, QN, PCR index 0.11 <1.00 normal HCV antib clifton was non-r eacti ve. There is no labor atory evide nce of HCV infec tion. In most cases , no furth er actio n is requi red. Howev er, if recen t HCV expos ure is suspe cted, a test for HCV RNA (test code 95532 ) is sugge sted. For addit ional infor matheather n maria e e refer to http: //[facility] catheather n.haider stdia gnost ics.c om/fa q/FAQ 22v1 (This link is being provi ded for infor matio nal/ educa loulou l purpo ses only. ) Not Available [facility] [place] [facility] [address], [place], [address], 08/21/2022 15:39:42 08/18/20 22 08/21/2022 HEPAT ITIS B SURFA CE AB IMMUN ITY, QN hepatitis B surface Ab immunity, qn >1000 mIU/m L > or = 10 normal PATIE NT HAS IMMUN ITY TO HEPAT ITIS B VIRUS . For addit ional infor edgar hawkins, maria e e refer to http: //[facility] catheather nskye stdia gnost ics.c om/fa q/FAQ 105 (This link is being provi ded for infor matio nal/ educa loulou l purpo ses only) . Not Available [facility] [place] [facility] [address], [place], [address], 08/21/2022 15:39:43 08/18/20 22 08/21/2022 HIV 1/2 ANTIG EN/AN TIBOD Y,FOU RTH GENER ATION W/RFL HIV Ag/Ab, 4TH gen NON-RE ACTIVE non-re active normal HIV-1 antig en and HIV-1 /HIV- 2 antib odies were not detec jacob. There is no labor atory evide nce of HIV infec tion. PLEAS E NOTE: This infor matio n has been discl osed to you from recor ds whose confi denti ality may be prote cted by state law. If your state requi res such prote ction , then the state law prohi bits you from heike mario furth er discl osure of the infor matio n witho ut the speci fic writt en conse nt of the perso n to whom it perta ins, or as other bowling permi tted by law. A gener al autho rizat ion for the relea se of medic al or other infor matio n is NOT suffi cient for this purpo se. For addit ional infor matio n pleas e refer to http: //[facility] catio n.que stdia gnost ics.c om/fa q/FAQ 106 (This link is being provi ded for infor matio nal/ educa loulou l purpo ses only. ) The perfo rmanc e of this assay has not been clini [place] valid ated in patie nts less than 2 years old. Not Available [facility] [place] [facility] [address], [address], 08/21/2022 15:39:44 08/18/20 22 08/21/2022 PROLA CTIN prolactin 8.5 NG/mL normal Refer ence Range Femal es Non-p regna nt 3.0-3 0.0 Pregn ant 10.0- 209.0 Postm enopa usal 2.0-2 0.0 Not Available [facility] [place] [facility] [address], [address], 08/21/2022 15:39:45 08/18/20 22 08/21/2022 ESTRA DIOL estradiol 229 pg/mL normal Refer ence Range Folli cular Phase : 19-14 4 Mid-C ycle: 64-35 7 Lutea l Phase : 56-21 4 Postm enopa usal: < or = 31 Refer ence range estab lishe d on post- puber julia patie nt popul ation . No pre-p ubert al refer ence range estab lishe d using this assay . For any patie nts for whom low Estra diol level s are antic ipate d (e.g. males , pre-p ubert al child awilda and hypog onada l/pos t-men opaus al femal es), the [facility] Inst[facility] t[facility] Estra diol, Ultra sensi tive, LCMSM S assay is recom amanda d (orde r code 56622 ). Pledonovan e note: patie nts being treat ed with the drug fulve stran t (Fasl odex( R)) have demon strat ed signi fican t inter feren ce in immun oassa y metho ds for estra diol measu remen t. The cross react ivity could lead to false ly eleva jacob estra diol test resul ts leadi ng to an inapp ropri ate clini lamine asses sment of estro gen statu s. [facility] order code 90154 -Estr adiol , Ultra sensi tive LC/MS /MS demon strat es negli gible cross react ivity with fulve stran t. Not Available [facility] [address], [place], [address], 08/21/2022 15:39:46 08/18/20 22 08/21/2022 TSH W/REF MARLO TO FT4 TSH w/reflex to FT4 2.74 mIU/L normal Refer ence Range > or = 20 Years 0.40- 4.50 Pregn kelly Range s First trime ster 0.26- 2.66 Secon d trime ster 0.55- 2.73 Third trime ster 0.43- 2.91 Not Available [facility] [place] [facility] [address], [place], [address], 08/21/2022 15:39:47 08/18/20 22 08/21/2022 HEMOG LOBIN A1C hemoglobin A1C 5.0 %_of_ total _HGB <5.7 normal For the purpo se of scree criss for the prese nce of diabe sandip: <5.7% Consi stent with the absen ce of diabe sandip 5.7-6 .4% Consi stent with incre ased risk for diabe sandip (pred iabet es) > or =6.5% Consi stent with diabe sandip This assay resul t is consi stent with a decre ased risk of diabe sandip. Curre ntly, no conse nsus exist s dago rojo use of hemog lobin A1c for diagn osis of diabe sandip in child awilda. Accor ding to Ameri can Diabe sandip Assoc iatio n (ADA) guide lines , hemog lobin A1c <7.0% repre sents optim al contr ol in non-p regna nt diabe tic patie nts. Diffe rent metri cs may apply to speci fic patie nt popul ation s. Stand ards of Medic al Care in Diabe sandip(A DA). Not Available [facility] [place] [facility] [address], [place], [address], 08/21/2022 15:39:48 08/18/20 22 08/21/2022 CHLAM YDIA/ N. GONOR RHOEA E RNA, TMA, UROGE NITAL chlamydia trachomatis RNA, tma, urogenital NOT DETECT ED not detect ed normal Not Available [facility] [place] [facility] [address], [place], [address], 08/21/2022 15:39:49 08/18/20 22 08/21/2022 CHLAM YDIA/ N. GONOR RHOEA E RNA, TMA, UROGE NITAL neisseria gonorrhoeae RNA, tma, urogenital NOT DETECT ED not detect ed normal Not Available [facility] [place] [facility] [address], [address], 08/21/2022 15:39:49 08/18/2008/21/2022 ALONAAM NICKYA/ N. GONOR RHOEA E RNA, TMA, UROGE NITAL comment The shira tical perfo rmanc e hetal cteri stics of this assay , when used to test SureP ath(T M) speci mens have been deter mined by [facility]. The modif icati ons have not been clear ed or appro lety by the FDA. This assay has been valid ated pursu ant to the CLIA regul ation s and is used for clini lamine purpo ses. For addit ional infor maria e newell e refer to https ://ed ucati on.qu estmonEchelle. YesVideo/f aq/FA Q154 (This link is being provi ded for infor edgar hawkins/ educmaria teresa jamil l purpo ses only. ) Not Available [facility] [place] [facility] [address], [address], 08/21/2022 15:39:49 08/18/20 22 08/21/2022 RPR (DX) W/REF L TITER AND CONFI RMATO RY TESTI NG RPR (DX) w/refl titer and confirmatory testing NON-RE ACTIVE non-re active normal Not Available [facility] [place] [facility] [address], [place], [address], 08/21/2022 15:39:50 09/11/20 22 09/11/2022 LIPID PANEL WITH REFLE X TO DIREC T LDL cholesterol, total 234 mg/dL <200 high Not Available [facility] [place] [facility] [address], [address], 09/11/2022 17:45:55 09/11/20 22 09/11/2022 LIPID PANEL WITH REFLE X TO DIREC T LDL HDL cholesterol 49 mg/dL > or = 50 low Not Available [facility] [address] [place], [place], [address], 09/11/2022 17:45:55 09/11/20 22 09/11/2022 LIPID PANEL WITH REFLE X TO DIREC T LDL triglyceride s 263 mg/dL <150 high If a non-f astin g speci men was colle cted, consi dara repea t trigl yceri de testi ng on a fasti ng speci men if clini [place] indic ated. [employer] johansen et al. J. of Clin. Lipid ol. 2015; 9:129 -169. Not Available [facility] [address] [place], [place], [address], 09/11/2022 17:45:55 09/11/20 22 09/11/2022 LIPID PANEL WITH REFLE X TO DIREC T LDL LDL-choleste rol 145 mg/dL _(lamine c) high Refer ence range : <100 Roxana able range <100 mg/dL for prima ry preve ntion ; <70 mg/dL for patie nts with CHD or diabe tic patie nts with > or = 2 CHD risk facto rs. LDL-C is now calcu lated using the Isi n-Hop kins calcu latheather n, which is a valid ated novel metho d provi ding angela r accur acy than the Fried james equat ion in the estim ation of LDL-C . Isi BLACKWOOD et al. KELSEY. 2013; 310(1 9): 2061- 2068 (http ://ed ucati on.Qu estDi [employer]. com/f aq/FA Q164) Not Available [facility] [address] [place], [place], [address], 09/11/2022 17:45:55 09/11/20 22 09/11/2022 LIPID PANEL WITH REFLE X TO DIREC T LDL chol/HDLC ratio 4.8 (calc ) <5.0 normal Not Available [facility] [place] [facility] [address] [place], [place], [address], 09/11/2022 17:45:55 09/11/20 22 09/11/2022 LIPID PANEL WITH REFLE X TO DIREC T LDL non HDL cholesterol 185 mg/dL _(lamine c) <130 high For patie nts with diabe sandip plus 1 major ASCVD risk facto r, treat ing to a non-H DL-C goal of <100 mg/dL (LDL- C of <70 mg/dL ) is consi dered a thera peuti c optio n. Not Available [facility] [place] [facility] [address] [place], [place], [address], 09/11/2022 17:45:55 Result Notes None recorded. Problems Name Problem SNOMED Code Status Onset Date Resolution Date Notes Provider Name and Address Organization Details Recorded Time Recurren t manic episodes 944685909 Active 2016 [ 017] (F31.89) Caren, recurren t, triggere d by buspar Brian Kaur MD [address] [place] [address], [address] , [facility] 3 18:25:51 Eczema 04703728 Active 2016 [ 017] (L30.9) Dermatit is Brian Kaur MD [address] [place] [address], [address] , [facility] 3 18:25:51 Mass of chest wall 226219625 Active 2016 [ 017] (R22.2) Mass of chest wall Brian Kaur MD [address] [place] [address], [address] , [facility] 3 18:25:51 Hyperten sive episode Active 2016 [ 017] (R03.0) ELEVATED BLOOD PRESSURE Brian Kaur MD [address] [place] [address], [address] , [facility] 3 18:25:51 Asthma 029208239 Active 2016 [ 017] (J45.998 ) Asthma, chronic Brian Kaur MD [address] [place] [address], [address] , [facility] 3 18:25:51 Chronic alcoholi sm in [facility] n 843972943 Active 2016 [ 017] (F10.21) Alcohol dependen ce in [facility] n, hx detox x 2, heavy ETOH until college. occasion al use now Brian Kaur MD [address] [place] [address], [address] , [facility] 3 18:25:51 Posttrau matic stress disorder 07085052 Active 2016 [ 017] (F43.10) PTSD Brian Kaur MD [address] [place] [address], [address] , [facility] 3 18:25:51 Generali zed anxiety disorder 41255767 Active 2016 [ 017] (F41.1) Generali zed anxiety disorder Brian Kaur MD [address] [place] [address], [address] , [facility] 3 18:25:51 Epigastr ic pain 19775171 Active 2019 [ 020] (R10.13) Abdomina l pain, epigastr ic Brain Kaur MD [address] [place] [address], [address] , [facility] 3 18:25:51 Gender identity disorder 78775026 Completed 201607/30/2021 [ 017] (F64.9) Mariusz he MD [address] [place] [address], [address] , [facility] 1 08:51:54 Attentio n deficit hyperact ivity disorder 111245077 Active 2016 [ 017] (F90.9) ADHD, attentio n predomin ant Brian Kaur MD [address] [place], [address] , [facility] 3 18:25:51 Bipolar I disorder 942624441 Active 2016 [ 017] (F31.9) Bipolar 1 disorder Brian Kaur MD [address] [place] [address], [address] , [facility] 3 18:25:51 Migraine 87325159 Active 2020 [ 021] (G43.909 ) Migraine Brian Kaur MD [address] [place] [address], [address] , [facility] 3 18:25:51 Hypermob ility syndrome 07790349 Active 2020 [ 021] (M35.7) Hypermob ility syndrome Brian Kaur MD [address] [place], [address] , [facility] 3 18:25:51 Delayed gastric emptying 297457605 Active 2020 [ 021] (K31.89) Delayed gastric emptying Brian Kaur MD [address] [place] [address], [address] , [facility] 3 18:25:51 Impotenc e Active 2016 [ 017] (F52.21) Erectile dysfunct ion Brian Kaur MD [address] [place] [address], [address] , [facility] 3 18:25:51 Impaired cognitio n 569343280 Active 2020 [ 021] (R41.89) Cognitiv e changes, brain fog and stutter Brian Kaur MD [address] [place], [address] , [facility] 3 18:25:51 Knee pain Active 2020 [ 021] (M25.561 ) KNEE PAIN, RIGHT Brian Kaur MD [address] [place] [address], [address] , [facility] 3 18:25:51 Exposure to Severe acute respirat ory syndrome coronavi kia Active 2019 [ 020] (Z20.89) Exposure to SARS-ass ociated coronavi kia Brian Kaur MD [address] [place] [address], [address] , [facility] 3 18:25:51 Biliary colic 73576792 Completed 201912/07/2021 [ 020] (K80.20) Biliary colic Mariusz he MD [address] [place] [address], [address] , [facility] 2 14:49:26 Hypertri glycerid emia 087484321 Active 2016 [ 017] (E78.1) HYPERTRI GLYCERID EMIA Brian Kaur MD [address] [place] [address], [address] , [facility] 3 18:25:51 Harmful pattern of use of multiple substanc es 694211213 Completed 201601/07/2021 [ 017] (F19.10) Substanc e abuse, multiple , ecstasy and acid intermit tent. Not Available [facility] 1 08:55:33 Hypertro phy of tonsils 36198482 Active 2020 Brian Kaur MD [address] [place], [address] , [facility] 3 18:25:51 Gender dysphori a 09575296 Active 2020 Gender dysphori a-MtF, Hormonal therapy: since 2009 on PO estradio l/spiron olone. hx of initial hyperK w spirinol actone. trial 12/2016 on estrogen patches but didnt stick-re turn to PO estradio l. spirono decrease d 300mg>20 0mg/d for ED as trial 12/2016. consent to hormonal therapy on file hx of sperm [facility] at [facility] to start hormones but reports decrease d sperm motility . Surgical : [facility] ed [facility] Counseli anuj Scott in [address]; psych sudbury Prior PCP until 11/2016 Trinity Kaur MD [address] [place] [address], [address] , [facility] 3 18:25:51 Gastroes ophageal reflux disease 692453120 Active 2021 Brian Kaur MD [address] [place] [address], [address] , [facility] 3 18:25:51 Irritabl e bowel syndrome 75602998 Active 2021 Brian Kaur MD [address] [place] [address], [address] , [facility] 3 18:25:51 Autism spectrum disorder 12109017 Active 2021 Brian Kaur MD [address] [place] [address], [address] , [facility] 3 18:25:51 Post-acu te COVID-19 9706692782 Active 2021 Brian Kaur MD [address] [place] [address], [address] , [facility] 3 18:25:51 Increase d blood pressure 70657774 Completed 202109/23/2022 Mariusz he MD [address] [place], [address] , [facility] 3 13:29:20 Hyperten sive disorder 77416109 Active 2021 Brian Kaur MD [address] [place], [address] , [facility] 3 18:42:40 Pain of bilatera l knee regions 10467520726 4102 Active 2022 Mariusz he MD [address] [place], [address] , [facility] 3 09:45:36 Increase d blood pressure 49623988 Active 2022 Mariusz he MD [address] [place], [address] , [facility] 3 13:29:20 Malaise and fatigue 126341801 Active 2022 Mariusz he MD [address] [place], [address] , [facility] 3 13:29:20 Pain of bilatera l knee joints 92263993311 4104 Active 2022 Mariusz he MD [address] [place], [address] , [facility] 3 15:33:59 Low back pain 812844166 Active 2022 Mariusz he MD [address] [place], [address] , [facility] 3 15:34:58 Problem Notes None recorded. Procedures Surgical History Date Name Laterality Status Provider Name and Address Organization Details Recorded Time 02/04/20 23 telehealth - VIDEO completed Mariusz Wiggins MD [address] [place], [address], [facility] 02/03/2023 13:21:39 11/11/19 23 telehealth - VIDEO completed Brian Kaur MD [address] [place], [address], [facility] 11/11/2022 18:13:07 10/14/19 23 telehealth - VIDEO completed Brian Kaur MD [address] [place], [address], [facility] 10/14/2022 18:49:48 09/23/19 telehealth - VIDEO completed [facility] 09/23/2022 17:16:36 Cholecystectomy completed Mariusz Wiggins MD [address] [place], [address], [facility] 08/07/2022 14:37:43 Imaging Results None recorded. Procedure Notes None recorded. Medical Equipment None Reported. Allergies Allergen ID Allergen Name Allergen Category Reaction Reaction Severity Criticality Documentation Date Start Date Code Code System Note Provider Name and Address Organization Details Recorded Time 52077 Substance with sulfonami de structure and antibacte rial mechanism of action (substanc e) medicatio n other moderate Not available 05/17/20212016 20892 8003 SNOMED React ion:v jennifer stron g fhx of this, never taken Not Available [facility] 01:56:38 Medications Name Sig Start Date Stop Date Status Note LastModified by Organization Details LastModified Time eq stool softener 100mg cap TAKE 1 CAPSULE BY MOUTH IN THE MORNING AND IN THE EVENING 08/07 completed Not Available Not Available Not Available Adderall 20 mg tablet 1 tab PO in the AM 02/03 completed None Not Available Not Available Not Available Adderall 15 mg tablet 1 tab PO in the afternoon 02/03 completed None Not Available Not Available Not Available omega-3 fatty acids 1,000 mg capsule Take 1 capsule 3 times a day by oral route for 90 days. 2022 active Not Available Not Available Not Avai lable medroxyprog esterone 2.5 mg tablet TAKE 1 TABLET DAILY active Not Available Not Available No t Available lisinopril 20 mg tablet Take 1 tablet every day by oral route. active Not Available Not Available No t Available spironolact one 100 mg tablet TAKE 1 TABLET TWICE A DAY active Not Available Not Available No t Available olanzapine 5 mg tablet TAKE 1 TABLET BY MOUTH ONCE DAILY 02/03 completed Not Available Not Available Not Available hydroxyzine pamoate 50 mg capsule as needed 2022 active Not Available Not Available Not Avai lable hydrocortis one 1 % topical cream apply to areola twice a day up to 1-2 weeks as needed for eczema 08/07 completed Not Available Not Available Not Available lisinopril 10 mg tablet Take 1 tablet every day by oral route for 30 days. 10/14 completed Not Available Not Available Not Available docusate sodium 100 mg capsule BID active Not Available Not Available N ot Available omeprazole 20 mg capsule,del ayed release TAKE 1 CAPSULE BY MOUTH ONCE DAILY active Not Available Not Available No t Available estradiol 2 mg tablet DISSOLVE 3 TABLETS UNDER THE TONGUE DAILY active Not Available Not Available No t Available Viagra 100 mg tablet Take 1/4 tablet by mouth 30 minutes before sexual activity as needed 08/07 completed Not Available Not Available Not Available albuterol sulfate HFA 90 mcg/actuati on aerosol inhaler USE 1 TO 2 INHALATIO NS VIA SPACER EVERY 4 TO 6 HOURS NEEDED FOR SHORTNESS OF BREATH, WHEEZING active Not Available Not Available No t Available estradiol 0.1 mg/24 hr weekly transdermal patch apply 1 patch transderm ally weekly 02/03 completed None Not Available Not Available Not Available finasteride 1 mg tablet TAKE 1 TABLET DAILY AT BEDTIME active Not Available Not Available No t Available buspirone 15 mg tablet 1 tab PO in AM and 1/2 tab PO in PM active Not Available Not Available No t Available atomoxetine 10 mg capsule straterra cap 1 daily per psych (unknown dose) 01/31 completed None Not Available Not Available Not Available bupropion HCl XL 300 mg 24 hr tablet, extended release ? dose 1 tab daily active Not Available Not Available No t Available bupropion HCl XL 150 mg 24 hr tablet, extended release 08/07 completed Not Available Not Available Not Available Fiber Laxative (psyllium husk) 0.52 gram capsule active Not Available Not Available Not Available Flovent HFA 110 mcg/actuati on aerosol inhaler USE 2 INHALATIO NS TWICE A DAY (RINSE MOUTH AFTER USE) active Not Available Not Available No t Available quetiapine 50 mg tablet TAKE 1 TABLET BY MOUTH ONCE DAILY 02/03 completed Not Available Not Available Not Available cholecalcif jericho (vitamin D3) 50 mcg (2,000 unit) capsule Take 1 capsule every day by oral route. active Not Available Not Available No t Available lamotrigine 50 mg disintegrat ing tablet 1 tab PO daily 08/07 completed Not Available Not Available Not Available Gavilyte-C 240 gram-22.72 gram-6.72 gram-5.84 gram oral solution TAKE 4,000 ML BY MOUTH ONCE FOR 1 DOSE active Not Available Not Available No t Available Linzess 145 mcg capsule TAKE 1 CAPSULE BY MOUTH ONCE DAILY 08/07 completed Not Available Not Available Not Available Metamucil 0.4 gram capsule Take 1 capsule every day by oral route. 2021 active Not Available Not Available Not Avai lable Trulance 3 mg tablet TAKE 1 TABLET BY MOUTH ONCE DAILY FOR CONSTIPAT ION 08/07 completed Not Available Not Available Not Available Vitals Date Recorded Body height Body mass index (BMI) Body weight Heart rate Body temperature Oxygen saturation Oxygen saturation in Arterial blood by Pulse oximetry Systolic blood pressure Diastolic blood pressure Provider Name and Address Organization Details Last Updated DateTime 2 186.69 cm 31.9 kg/m2 603718. 13 g 79 /min 96 [degF] 98 % 98 % 146 mm[Hg] 90 mm[Hg] DASHA Eddy [address] [place] [address], [address] 2 13:43:01 Social History Question Answer Notes LastModified by Organization Details LastModified Time Tobacco Smoking Status Never Smoker Not Available [facility] 07/12/2021 03:01:38 What Is Your Level Of Alcohol Consumption? None Former; Occasionally Hx Of Detox X 2 In [employer]. Now Social Etoh Here And There. Information not available 08/07/2022 Which Illicit Or Recreational Drugs Have You Used? 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 Both Men And Women Information not available 07/12/2021 What Was The Date Of Your Most Recent Tobacco Screening? 10/11/2019 [email or web address] Information not available 04/19/2022 What Is Your Relationship Status? Single Information not available 07/12/2021 Do You Use Your Seat Belt Or Car Seat Routinely? Yes Always Information not available 07/12/2021 Are You Sexually Active? Yes Currently Active Partners In Past Year: 2 Polyamorous- Using Condoms W M Partners-denies Anal Penetrative Except Dildos, +oral Penetrative Sex. Information not available 07/12/2021 Do You Use Any Illicit Or Recreational Drugs? No Former Information not available 07/12/2021 Sex: Male Functional Status None recorded. Mental Status None recorded. Family History Nothing Reported Notes:mom: RA, Kellie's, multiple autoimmune conditions, endometriosis mental health conditions on mom's side-ADD, BP disorder, Autism. mgpa throat cancer, bynum's dad: adopted, gout, diverticulitis one brother: diverticulitis, asthma, ADD no DM, HTN, cancer, cv disease Medical History No medical history recorded. Gynecological HistoryNo gynecological history recorded. Obstetrics History GPAL:G 0 P 0 0 0 0 Immunizations Vaccine Type Date Status Note Provider Nam e and Address Organization Details Recorded Time Hep A, adult 10/11/2019 completed Not Available [facility] 08/10/2022 16:36:48 Tdap 12/31/2017 completed Not Available [facility] 08/10/2022 16:36:48 HepB-CpG 01/31/2019 completed Not Available [facility] 08/10/2022 16:36:48 HepB-CpG 03/14/2019 completed Not Available [facility] 08/10/2022 16:36:48 Hep B, adult 12/31/2017 completed Brian Kaur MD [address] [place] [address], [phone], [facility] 09/23/2022 18:26:46 Hep A, adult 01/31/2019 completed Not Available [facility] 08/10/2022 16:36:48 COVID-19, mRNA, LNP-S, PF, 100 mcg/0.5mL dose or 50 mcg/0.25mL dose 01/04/2021 completed Jamar Hunt RN [address] [place] [address], [phone], [facility] 08/07/2022 21:00:36 COVID-19, mRNA, LNP-S, PF, 100 mcg/0.5mL dose or 50 mcg/0.25mL dose 02/01/2021 completed Jamar Hunt RN [address] [place] [address], [phone], [facility] 08/07/2022 21:00:36 COVID-19, mRNA, LNP-S, bivalent, PF, 50 mcg/0.5 mL or 25mcg/0.25 mL dose 08/21/2022 completed Brian Kaur MD [address] [place] [address], [phone], [facility] 09/23/2022 18:26:46 COVID-19, mRNA, LNP-S, PF, 100 mcg/0.5mL dose or 50 mcg/0.25mL dose 09/18/2021 completed Brian Kaur MD [address] [place] [address], [phone], [facility] 09/23/2022 18:26:46 Past Encounters Encounter ID Performer Location Encounter Start Date Encounter Closed Date Diagnosis/Indication Diagnosis SNOMED-CT Code Diagnosis ICD10 Code Diagnosis Note [id number] Mariusz he MD [address] [address] 08/07/2022 13:27:37 08/07/2022 14:58:17 Adult health examination 612868567 Z00.00 CPE todayAppro priate labs ordered for screening by hx of risk factors, including of metabolic disease as well as hormonal labs for transcareR eviewed healthy weight goals, nutrition and exerciseRe viewed dental careSTI screen: update; declines oral/anal gcch and papTB screen: n/aVax: Would You like flu shot today?: Declined ; Pt is scheduled to get covid shots else where. Screening procedure 2012 5006 Z13.9 Screened {{positive (+) negati ve (-)*}} for social risk factors affecting patient care. CSS Appointmen t: {{Schedule d Referral made Decli bradford Not Applicable *}} SDOH Resources Handout: {{Printed Declined N ot Applicable *}} See results of screen below. Bipolar I disorder 60413 6008 F31.9 follows w [facility] tiffanie danielcetasneem - [facility]: ; JAVIER signed so we can send her our MANAGER CREDIT COLLECTIONS testing results Delayed ga stric emptying 074115726 K30 working overnights , decreased motility on testing per report, needing to follow strict diet and schedule which is conflictin g with work, also simultaneo usly battling IBS-C (see below) Irritable bowel syndrome 20364518 K58.9 IBS-Cfollo w w GI, trials of multiple meds with AE (worsened diarrhea), spending much time in the bathroom as a result throughout the day and work shift, interferin g with ability to work, reports up to 3h/per shift at times Gastroesop hageal reflux disease 275033325 K21.9 ongoing seeing GI, working on diet, but finds various recommenda tions in conflict Autism spe ctrum disorder 26027409 F84.9 PDD/ ASD per neuropsych testing; revd with patient resultswil l send copy to pt's psychiatri st Post-acute COVID-19 1119 356042 U09.9 dx covid in november 2019 but now reports ongoing - fatigue, asthma worsening, fevers cyclicalme ntal fogging-on goingstutt ering - this has resolvedfa tigue debilitati ng, interferin g w ability to work Increased blood pressure 24809057 R03.0 today. havent been monitoring to start monitoring BP, vin as changing lia - see below.like ly to need agent if persistent or recurrs >140/90 Infection screening 2437 56301 Z11.3 routine Malaise and fatigue 2717 94859 R53.83 most c/w longhaul covid - see abovebut also FHX autoimm dz, frequent fevers, no B sx and exam stablechk basic AI labswill be looking for disability related to this + multiple GI sx, psychiatri c conditions . her BH/psych already aware, revd the process- to start w disab office primarily and then to f/u with our office and psych for paperwork completion down the road Gender dysphoria 0120387 9 F64.9 reports ongoing diuresis and SE from spirook to try non-diuret ic for T blockade - start low dose finasterid e - may need to see how does vin if needing ongoing erectile fxn (historial ly was on viagra though recently not) but revd this will help keep E dosing where its at as already on higher end of dosinginte rested in provera as well , would like to start . ok to start at a low dose - unlikely to have sig incr CV or breast ca risk w this type of progestin as well as in young age, low dose.consi dara titration to effect in f/ucontinu e E at current dosing is due for labs. would do now and then again in f/ui will have her see dr kaur in 2-3 mo to f/u transhealt h care in my absence and then return w me at least q6mo for 30 min appts given multiple other needs - above [id number] Brian Kaur MD [address] [address] 09/23/2022 15:27:15 09/23/2022 19:25:16 Hypertriglyceridemia 598862766 E78.1 C270, H49, T213, L178 ( 2) >> C234, H49, T263, L145 ( 2)- Will rx for Omega3 1000mg TIDF/U w/Dr. Kaur via on Friday, October 14, 2022 06:15 PM Gender dysphoria 1807473 9 F64.9 Patient presents for transgende r care.Gende r dysphoria is {{well controlled * not well controlled }}.Pt notes the following: Recent labs on 08/18/2022 showed:- 229, High-quita l, Transfemin ine, Estradiol 100 - 200 pg/ml- 13, High, Transfemin ine, Testostero ne < 1.9 nmol/LBase d on this, the elevated testostero ne likely reflects the removal of spironolac tone, and the elevated estradiol probably is just transientl y high.- Will recheck hormone levelsSafe ty assessment : States safeContin ue current gender-aff irming hormone therapy:- Baseline labs reviewed- Estradiol {{1mg 2mg 4mg 6mg*}} PO daily- Finasterid e 1mg dailyMonit oring Plan:- 1-3mo s/p dose change: Testostero ne, Estradiol, CBC, CMP- q6mo: CBC, FLP, CMP, A1c, Testostero ne, EstradiolF /U w/Dr. Kaur via on Friday, October 14, 2022 06:15 PM Hypertensive disorder 38 545270 I10 Patient's last Cr was: 0.76Per pt SPB at home have been 130s-140s/ 80s after increase to lisinopril 10mg, which is a notable improvemen t, but pt notes she's feeling more tired and less exercise-t olerant w/some orthostati c hypotensio n effectsPt does not like diuretics, so HCTZ is not a good option for her.- Continue lisinopril 10mg dailyF/U w/Dr. Kaur via on Friday, October 14, 2022 06:15 PM [id number] Brian Kaur MD [address] 7 10/14/2022 08:49:00 10/14/2022 19:05:33 Hypertriglyceridemia 522765038 E78.1 C270, H49, T213, L178 ( 2) >> C234, H49, T263, L145 ( 2)- Continue Omega3 1000mg TIDF/U w/PCP PRN. Gender dysphoria 1788880 9 F64.9 Patient presents for transgende r care.Gende r dysphoria is {{well controlled * not well controlled }}.Pt notes the following: - States that dropping spironolac tone and going to progestero ne has given her more energy- States this month she had a manic episode, which does occasional ly happen- States that this was a particular ly challengin g episodeRec ent labs on 08/18/2022 showed:- 229, High-quita l, Transfemin ine, Estradiol 100 - 200 pg/ml- 13, High, Transfemin ine, Testostero ne < 1.9 nmol/LBase d on this, the elevated testostero ne likely reflects the removal of spironolac tone, and the elevated estradiol probably is just transientl y high.- Will recheck hormone levels at a future office visitSafet y assessment : States safeContin ue current gender-aff irming hormone therapy:- Estradiol {{1mg 2mg 4mg 6mg*}} PO daily- Finasterid e 1mg daily- Medroxypro gesterone 2.5mg dailyF/U w/Dr. Kaur via on Friday, November 11, 2022 06:00 PM Hypertensive disorder 38 561891 I10 Patient's last Cr was: 0.76States BPs have been high 130s to low 140s / 80s to low 90sStates taking lisinopril 10mgStates previous sx of orthostati c hypotensio n have diminished , but BPs have elevatePt does not like diuretics, so HCTZ is not a good option for her.- Increase lisinopril to 20mg dailyF/U w/Dr. Kaur via on Friday, November 11, 2022 06:00 PM Recurrent manic episodes 508391316 F31.89 BORIS-7 Score 11States that dropping spironolac tone and going to progestero ne has given her more energyStat es this month she had a manic episode, which does occasional ly happenStat es that this was a particular ly challengin g episode- Advised that dropping spironolac tone and adding progestero ne shouldn't worsen manic episodes- Advised that there is much about progestero ne that we do not understand - Advised that there are other meds we could add, such as propranolo l, to help calm manic episodes- Advised to monitor and will discuss in 1 mo.- Taking bupropion XL 300mg qam- Taking buspirone 15mg qam and 7.5mg qpm- Taking hydroxyzin e 50mg PO qhs PRN anxietyF/U w/Dr. Kaur via on Friday, November 11, 2022 06:00 PM Generalize d anxiety disorder 23596251 F41.1 BORIS-7 Score 11States that dropping spironolac tone and going to progestero ne has given her more energyStat es this month she had a manic episode, which does occasional ly happenStat es that this was a particular ly challengin g episode- Advised that dropping spironolac tone and adding progestero ne shouldn't worsen manic episodes- Advised that there is much about progestero ne that we do not understand - Advised that there are other meds we could add, such as propranolo l, to help calm manic episodes- Advised to monitor and will discuss in 1 mo.- Taking bupropion XL 300mg qam- Taking buspirone 15mg qam and 7.5mg qpm- Taking hydroxyzin e 50mg PO qhs PRN anxietyF/U w/Dr. Kaur via on Friday, November 11, 2022 06:00 PM Bipolar I disorder 30776 6008 F31.9 BORIS-7 Score 11States that dropping spironolac tone and going to progestero ne has given her more energyStat es this month she had a manic episode, which does occasional ly happenStat es that this was a particular ly challengin g episode- Advised that dropping spironolac tone and adding progestero ne shouldn't worsen manic episodes- Advised that there is much about progestero ne that we do not understand - Advised that there are other meds we could add, such as propranolo l, to help calm manic episodes- Advised to monitor and will discuss in 1 mo.- Taking bupropion XL 300mg qam- Taking buspirone 15mg qam and 7.5mg qpm- Taking hydroxyzin e 50mg PO qhs PRN anxietyF/U w/Dr. Kaur via on Friday, November 11, 2022 06:00 PM [id number] Brian Kaur MD [address] [address] 11/11/2022 08:14:36 11/11/2022 18:35:55 Hypertensive disorder 63882808 I10 Patient's last Cr was: 0.76States BPs have improved to 130s / 80sDoes not like diuretics, so HCTZ is not a good option for her.- Continue lisinopril to 20mg dailyF/U w/PCP in December 2022 Gender dysphoria 0177480 9 F64.9 Patient presents for transgende r care.Gende r dysphoria is {{well controlled * not well controlled }}.Pt notes the following: - States she feels good right now- States she really can't evaluate this while on a manic episodeRec ent labs on 08/18/2022 showed:- 229, High-quita l, Transfemin ine, Estradiol 100 - 200 pg/ml- 13, High, Transfemin ine, Testostero ne < 1.9 nmol/LBase d on this, the elevated testostero ne likely reflects the removal of spironolac tone, and the elevated estradiol probably is just transientl y high.- Will recheck hormone levels at a future office visitSafet y assessment : States safeContin ue current gender-aff irming hormone therapy:- Estradiol {{1mg 2mg 4mg 6mg*}} PO daily- Finasterid e 1mg daily- Medroxypro gesterone 2.5mg dailyF/U w/PCP in December 2022 Recurrent manic episodes 752568073 F31.89 -- Taking bupropion XL 300mg qam- Taking buspirone 15mg qam and 7.5mg qpm- Taking hydroxyzin e 50mg PO qhs PRN anxietyF/U w/PCP in December 2022 Generalize d anxiety disorder 61313583 F41.1 States psych prescriber is Nirali Eckert M.D. and she will f/u w/her next weekStates Dr. Eckert stopped her quetiapine and start olanzapine 5 mg dailyState s she's had terrible insomnia w/o seroquel, but her BPs have improved.S tates they've talked about decreasing the bupropion to try and help with this- Taking olanzapine 5 mg daily- Taking bupropion XL 300mg qam- Taking buspirone 15mg qam and 7.5mg qpm- Taking hydroxyzin e 50mg PO qhs PRN anxietyF/U w/PCP in December 2022 Bipolar I disorder 09529 6008 F31.9 States psych prescriber is Nirali Bauters, M.D. and she will f/u w/her next weekStates Dr. Eckert stopped her quetiapine and start olanzapine 5 mg dailyState s she's had terrible insomnia w/o seroquel, but her BPs have improved.S tates they've talked about decreasing the bupropion to try and help with this- Taking olanzapine 5 mg daily- Taking bupropion XL 300mg qam- Taking buspirone 15mg qam and 7.5mg qpm- Taking hydroxyzin e 50mg PO qhs PRN anxietyF/U w/PCP in December 2022 [id number] Mariusz he MD [address] [address] 02/03/2023 09:30:06 02/03/2023 17:28:09 Bipolar I disorder 836040952 F31.9 follows w behavioral health regularlyr eports an extended manic episode that was managed by antipsycho tics acutely and resulted in a medical leaveno longer on mood stabilizer , antipsycho tic, is managing expectantl y and w frequently management continue to see kevin pa - -- will continuesh e may be losing her psych given impending insurance change -- was iman eckert, [facility], p: [phone] 60med rec completed - buspar, buproprion , hydrox PRN currently taking. Delayed ga stric emptying 785627894 K30 was prior working nights and this was not possible to maintain her dietdecrea sed motility on testing per reportable to adhere to diet restrictio ns and timing better now on medical leave Irritable bowel syndrome 39855406 K58.9 IBS-mixedf ollow w GI, trials of multiple meds with AE (worsened diarrhea), spending much time in the bathroom as a result throughout the day and work shift, interferin g with ability to work, reports up to 3h/per shift at times 1x/week, but daily 1.5-2hrs/n eeding to use restroom daily Gastroesop hageal reflux disease 755789765 K21.9 ongoing seeing GI, working on diet Autism spe ctrum disorder 28568169 F84.9 PDD/ ASD per neuropsych testing; noises affecting 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 continue current dosing. off spironolac tone/diure sis Administra tive reason for encounter 378102723 Z02.9 filled out physical residual functional capacity assessment w patient today Hypertensive disorder 38 038981 I10 stable on lisinopril 20mgto chk bp 1x/w Pain of bi lateral knee joints 3519713695 58768 M25.561 bl OA, is in PT, reports dx'ed w specialist will be seeing pods regarding foot alignment as well as has falling arches reynaldo ly pain on flat surfaces vin on graded surfaces and stair climbing bothersome Low back pain 260446111 M54.50 w position (poor sleep), days that can't bend over or stoop 2/2 pain Health Concerns Section Related Observation LastModified by Organization Detai ls LastModified Time None Recorded Concern Status LastModified by Organization Details LastModified Time None Recorded Advance Directives Directive None Recorded Payers Encounter Date Sequence Insurance Name Policy Number Policy Park Covered Member ID Park Member ID Guarantor Name 08/07/2022 1 [place] [id number] Radha E Kirby [id number] Radha E Kirby 09/23/2022 1 [place] [id number] 1 Radha E Kirby [id number] Radha E Kirby 10/14/2022 1 [place] [id number] 1 Radha E Kirby [id number] Radha E Kirby 11/11/2022 1 [place] [id number] 1 Radha E Kirby [id number] Radha Kirby 02/03/2023 1 [facility] [id number] 1 Radha Kirby [id number] Radha Kirby Notes Date Note Type Note Provider Name and Address Organization Details Recorded Time 2 text/html pt is here for a cpe visit, needs to update medical chart >1y without apptwants to know MANAGER CREDIT COLLECTIONS resultsmultiple health concerns Dentist: less than 6 monthfruits and vegetables: everydayfast food per week: hardlyAny trouble sleeping: everydayexercise: x4 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 HRT - estradiol 6mg daily; spironolactone 100mg BIDwould like to consider progesteronetaking lia but getting too much diureses all of this is affecting work:1.5-3hrs in an 8 hr shift is in the restroompain, nausea, constipationmental fogging and fatigue from long covid knees falling apart, needs to exerciseneeds to sleep for BP d/o but is working nightsbut needs to be a strict eating schedule, motility problems loss of smell since childhood Mariusz Wiggins MD [address] [place] [address], [phone], [facility] 08/10/2022 16:47:06 3 text/html Telehealth visit via audio technology. Patient informed they can see a clinician in-person as needed. Clinician's location: {{[facility]* off-site home office}}. Patient's location: {{Home*}}.f/u trans carept stated prefers video call in order he health insurance covers appt. # Hypertension - States compliant w/meds- States 160s/90s to 130-140/80s- States she hasn't really liked diuretic effects of lia so HCTZ is less desirable- States resting HR is low 60s and jumps to 90s for a few minutes- States she's felt wiped out and slightly SOB since the increase in the lisinopril about 3 weeks ago- States she feels like the medicaton is working well nonetheless- States that she has had some exercise intolerance since having COVID - Denies CP, palpitations, SOB, edema - Denies nausea, vomiting, sudden severe MARCELO, and visual changes - Denies unilateral weakness or numbness, severe anxiety, and severe pain # HLD- States she's OK with trying Omega3 FA supplements- States she does eat oatmeal, shredded wheat, and psyllium- States she has increased her exercise # Transgender Care- States interested in checking her hormone levels again- States she's w Brian Kaur MD [address] [place], [phone], [facility] 09/23/2022 18:44:46 3 text/html Telehealth visit via audio technology. Patient informed they can see a clinician in-person as needed. Clinician's location: {{[facility] off-site home office*}}. Patient's location: {{Home*}}. # HTN- States BPs have been high 130s to low 140s / 80s to low 90s- States taking lisinopril 10mg- States previous sx of orthostatic hypotension have diminished, but BPs have elevate # Hypertriglycerides- States doing fine with the Omega3 caps # Transgender Care- States that dropping spironolactone and going to progesterone has given her more energy- States this month she had a manic episode, which does occasionally happen- States that this was a particularly challenging episode Brian Kaur MD [address] [place], [address], [facility] 10/14/2022 18:53:06 3 text/html Telehealth visit via audio-video technology. Patient informed they can see a clinician in-person as needed. Clinician's location: {{[facility] off-site home office*}}. Patient's location: {{Home*}}. PCC: MARIUSZ WIGGINS MD # Transgender Care- States she feels good right now- States she really can't evaluate this while on a manic episode # Hypertension- States compliant w/meds- States BPs are 130/80- Denies CP, palpitations, SOB, edema- Denies nausea, vomiting, sudden severe MARCELO, and visual changes- Denies unilateral weakness or numbness, severe anxiety, and severe pain # Depression / Insomnia- States she's had terrible insomnia w/o seroquel- States her BP is much better though- States psych prescriber is Nirali Eckert M.D.- States she will see her next week- States she's now on olanzapine 5 mg daily- States they've talked about decreasing the bupropion to try and help with this- States no other changes to her medications Brian Kaur MD [address] [facility], [place], [address], [facility] 11/11/2022 18:32:10 3 text/html Telehealth visit via audio-video technology. Patient informed they can see a clinician in-person as needed. Clinician's location: {{[facility]* off-site home office}}. Patient's location: {{Home*}}. february 19 medical leave ends and wont have current health insurance after february 2022wound up on leave bc of manic episodetNovatek togetherdisability claim went in 12/18/22, in process of this IBS/GERD/decr. motilitycolonoscope is set up to get more informationfeels about the sameIBS-mixed; constipation/diarrhea variesstill needing to use bathroom 1.5hr out of 8hrs in the bathroom avg--minimum, ~2hrs is avg, 2-3hrs if a bad time at least 1x/week by the end of the weeksince not working has been able to keep up with the diet, needs a gap b/t eating and sleeping (3 hrs prior to sleeping last meal) - this has improved the bloating, not fully resolved fevers have gotten worse - multiple on avg/week. very variable rising/dropping, sweating randomly.frequent and has missed doing things bc of febrilehas been checking low 100s post-covidweight stable ~240lb over the past yearfatigue stable, mental fogging ongonig but improvedgetting repeat rashes as well - erythematous macule w/raised bumps ankles/back of hands/chest wall. hard to tell if coincide w fevers. losing psychiatristBP - improved on lisinopril 20mg Mariusz Wiggins MD [address] [facility], [place], [address], [facility] 02/03/2023 17:14:55 OBGyn Episode No OBEpisode recorded.
--- OUTSIDE RECORDS SUMMARY | 2025-01-23 09:13 | XMS_ITS | Clinical Summary ---
Author Organization [facility] Address [address] [place] [address] Care Team Providers Care Novelty Worker Name Role Phone Kenia Wiggins Primary Care Provider + [phone] Allergies Active Allergy Reactions Criticality Noted Date [...] BCBS OUT OF STATE PPO Care Teams Novelty Worker Relationship Specialty Start Date End Date Kenia Wiggins [address] [place] [phone] (work) PCP - General Sports Medicine 10/18/19
--- OUTSIDE RECORDS SUMMARY | 2025-01-23 09:14 | XMS_ITS | Data Portability ---
Author Organization [facility] [employer], sv[employer]admin Address [address] [place] [id number] Care Team Providers Care Transport Conductor Name Role Phone NEELIMA VÁZQUEZ Primary Care Provider [phone] DAVI BANGURA Word Processing Supervisor Assessment Encounter Date Assessment Date Assessment LastModified [...] the patient was 5 mins START 1002 [id number] Not available 10/04/2024 10:14:17 Plan of Treatment Reminders Order Date Submit Date Provider Last Modified By Organization Details Last Modified Time Details Appointments None recorded. Lab lipid panel, serum [address] [facility], [address] [place] [address], [address], 5 15:32:27 AST/SGOT (aspartate aminotrans ferase), serum or plasma 2024 025 [facility], [address] [place] [address], [address], 5 10:06:21 ALT (alanine aminotrans ferase), serum or plasma 2024 025 [facility], [address] [place] [address], [address], 5 10:06:21 CK (creatine kinase), total, serum 2024 025 [facility], [address] [place] [address], [address], 5 10:06:21 BMP, serum or plasma 2024 025 [facility], [address] [place] [address], [address], 5 10:06:21 lipid panel, serum [address], [address], 4 14:04:14 CK (creatine kinase), total, serum [address], [address], 4 14:04:14 ALT (alanine aminotrans ferase), serum or plasma [address], [address], 4 14:04:14 AST/SGOT (aspartate aminotrans ferase), serum or plasma [address], [address], 4 14:04:14 BMP, serum or plasma [address], [address], 4 14:04:14 magnesium, serum or plasma [address], [address], 4 14:04:14 TSH, serum or plasma [address], [address], 4 14:04:14 Referral None recorded. Procedures None recorded. Surgeries None recorded. Imaging electrocar diogram 2023 024 [facility] In-Office Order, Internal Use Only DO Not Attach Compendium DO Not Attach Compendium, Do Not Delete/merge, [id number] 11:21:19 electrocar diogram 2023 [email or web address] In-Office Order, Internal Use Only DO Not Attach Compendium DO Not Attach Compendium, Do Not Delete/merge, [id number] 14:04:14 director of integrated marketing 2023 [place] [employer], [address] [facility], [address], [place], [address], 10:45:12 US, echocardio gram, transthora cic, complete, w/ color flow - 2D Color-flow and Doppler with contrast if clinically indicated according to protocol. 2023 [place] Not available 15:02:48 exercise stress test 2023 [facility] ([facility]), [address] [place] [address], [address], 12:11:15 Medication Orders diltiazem ER 120 mg capsule,24 hr,extende d release 2023 [place] [id number], [address] [place], [address], 11:13:15 Patient TargetsNo targets recorded. Patient Instructions Encounter Date Encounter Id Patient Instructions Last Modified By Organization Details Last Modified Time 05/04/2024 [id number] palpitations: care instructions [email or web address] Not available 05/04/2024 14:04:14 high blood pressure: care instructions rwholey Not available 05/04/2024 14:04:14 learning about high blood pressure rwholey Not available 05/04/2024 14:04:14 shortness of breath: care instructions rwholey Not available 05/04/2024 14:04:14 06/02/2024 [id number] palpitations: care instructions rwholey Not available 06/02/2024 17:14:23 PLACED A 3 DAY ZIO XT MONITOR FOR PALPITATIONS. ALL QUESTIONS ANSWERED. [email or web address] Not available 06/02/2024 14:04:40 10/04/2024 [id number] high blood pressure: care instructions Not available [...] DO Not Attach Compendium, Do Not Delete/merge, [id number] 05/04/2024 09:02:55 05/04/2005/04/2024 elect rocar diogr am No observ ation record ed. [facility] Not Available 2023 12:33:22 06/09/20 24 06/09/2024 cardi ac monit or No observ ation record ed. gharding [employer] [address] [place] [address], [address], 07/01/2024 15:45:51 06/20/20 24 06/13/2024 exerc polly molina s test No observ ation record ed. [facility] ([facility]) [address] [place] [address], [address], 06/20/2024 14:49:24 06/29/2006/22/2024 US, echoc ardio gram, trans thora cic, compl ete, w/ color flow No observ ation record ed. gharding Not Available 2023 15:02:58 07/07/20 elect rocar diogr am No observ ation record ed. [email or web address] In-Office Order Internal Use Only DO Not Attach Compendium DO Not Attach Compendium, Do Not Delete/merge, [id number] 07/07/2024 09:53:38 07/07/20 24 07/07/2024 elect rocar diogr am No observ ation record ed. [facility] Not Available 2023 16:51:27 07/11/2006/22/2024 US, echoc ardio gram, trans thora cic, compl ete, w/ color flow No observ ation record ed. [email or web address] Not Available 2023 12:02:41 08/14/20 24 06/13/2024 exerc ise stres s test No observ ation record ed. [facility] ([facility]) [address] [place] [address], [address], 08/14/2024 09:24:21 Result Notes None recorded. Problems Name Problem SNOMED Code Status Onset Date Resolution Date Notes Provider Name and Address Organization Details Recorded Time Mixed hyperlipidem ia 407362281 Active 2023 Jacque gregory [facility] 11:43:56 Benign essential hypertension 1980904 Active 2023 Jacque gregory [facility] 4 11:43:57 Irritable bowel syndrome 76117216 Active 2023 Yelitza gregory [facility] 15:01:12 Chronic owdh-KCRDB-1 9 syndrome 3132389786 Active 2023 Yelitza gregory [facility] 4 15:01:12 Bipolar disorder 20452523 Active 2023 Yelitza gregory [facility] 15:01:12 Asthma 259835288 Active 2023 Yelitza gregory [facility] 4 15:01:12 Generalized anxiety disorder 38876684 Active 2023 Yelitza Estrada [facility] 15:01:12 Osteoarthrit is of knee 551329964 Active 2023 Yelitza gregory [facility] 4 15:01:12 Low back pain 415681210 [facility] 4 15:01:13 Attention deficit hyperactivit y disorder, predominantl y inattentive type 09898749 [facility] 15:01:13 Autism spectrum disorder 06302638 [facility] 20[facility] 15:01:13 Postural orthostatic tachycardia syndrome 912157203 Active 20[facility] 4 15:01:13 Migraine 06480486 Active 2023 [facility] 4 15:01:13 Posttraumati c stress disorder 26912767 Active 2023 [facility] 4 15:01:13 Essential hypertension 31702899 Active 2023 [facility] 4 15:01:13 Dyslexia 53888055 Active 2023 [facility] 4 15:01:13 Hypermobilit y of joint 192855922 Active 2023 Yelitza Estrada [facility] 4 15:01:13 Hiatal hernia 55965579 [facility] 20[facility] 4 15:01:13 Gender dysphoria 87473363 Active 2023 Yelitza Estrada [facility] 15:01:13 Problem Notes None recorded. Procedures Surgical History Date Name Laterality Status Provider Name and Address Organization Details Recorded Time Gallbladder Surgery completed [facility] 05/04/2024 09:02:35 Other Surgeries completed [facility] 05/04/2024 09:02:35 Pyloric Stenosis Repair completed Irena Wilkerson [facility] 05/04/2024 09:18:48 Imaging Results Imaging Date Name Status LastModified by Organization Details LastModified Time 05/04/2024 electrocardiogram completed In-Offi ce Order Internal Use Only DO Not Attach Compendium DO Not Attach Compendium, Do Not Delete/merge, [id number] 05/04/2024 09:02:55 05/04/2024 electrocardiogram completed [facility] Informa tion not available 05/04/2024 12:33:22 06/09/2024 director of integrated marketing completed gharding [employer] [address] [place] [address], [address], 07/01/2024 15:45:51 06/13/2024 exercise stress test completed [facility] ([facility]) [address] [place] [address], [address], 06/20/2024 14:49:24 06/22/2024 US, echocardiogram, transthoracic, complete, w/ color flow completed Information not available 06/29/2024 15:02:58 07/07/2024 electrocardiogram completed [email or web address] In-Offi ce Order Internal Use Only DO Not Attach Compendium DO Not Attach Compendium, Do Not Delete/merge, [id number] 07/07/2024 09:53:38 07/07/2024 electrocardiogram completed [facility] Informa tion not available 07/07/2024 16:51:27 06/22/2024 US, echocardiogram, transthoracic, complete, w/ color flow completed [email or web address] Information not available 07/11/2024 12:02:41 06/13/2024 exercise stress test completed gharding [facility] ([facility]) [address] [place] [address], [address], 08/14/2024 09:24:21 Procedure Notes None recorded. Medical Equipment None Reported. Allergies Allergen ID Allergen Name Allergen Category Reaction Reaction Severity Criticality Documentation Date Start Date Code Code System Note Provider Name and Address Organization Details Recorded Time 096158 Substance with sulfonami de structure and antibacte rial mechanism of action (substanc e) medicatio n other Not available Not available 05/04/2024 64341 8003 SNOMED Irena gregory [facility] 4 09:01:10 038829 house dust allergeni c extract environme nt,medica tion respirato ry distress Not available Not available 05/04/2024 05916 9 RxNorm Irena gregory [facility] 4 09:01:10 Medications Name Sig Start Date [...] Address Organization Details Last Updated DateTime 4 170639. 28 g 31.5 kg/m2 190.5 cm 98 % 98 % 72 /min 136 mm[Hg] 80 mm[Hg] 134 mm[Hg] 78 mm[Hg] Irena Wilkerson [facility]. 09:23:37 Date Recorded Body height Body mass index (BMI) Body weight Heart rate Systolic blood pressure Diastolic blood pressure Provider Name and Address Organization Details Last Updated DateTime 4 190.5 cm 32.7 kg/m2 203339. 2 g 68 /min 110 mm[Hg] 60 mm[Hg] Dora Amanda [facility]. 4 10:03:50 Date Recorded Body height Provider Name an d Address Organization Details Last Updated DateTime 10/04/2024 190.5 cm Shira Kumar [facility] 10/04/2024 09:26:23 Social History Question Answer Notes LastModified by Organizat ion Details LastModified Time Tobacco Smoking Status Never Smoker Irena gregory [facility]. 05/04/2024 09:02:32 Do You Have An Advance [...] Anxious, Or Unable To Sleep At Night)? [id number] Information not available 05/04/2024 Do You Use [...] SNOMED-CT Code Diagnosis ICD10 Code Diagnosis Note [id number] Davi Bangura MD [facility] [address] [address] 05/04/2024 08:58:40 05/04/2024 10:24:40 Palpitations 37565317 R00.2 Dyspnea 457776998 R06.02 Benign ess ential hypertension 2231629 I10 Mixed hyperlipidemia 267 586790 E78.2 [id number] Davi Bangura MD [employer], [address] [place] [address] 06/02/2024 13:41:22 06/02/2024 14:39:14 Palpitations 16266103 R00.2 [id number] Davi Bangura MD [facility] [address] [address] 07/07/2024 09:49:53 07/07/2024 10:59:34 Benign essential hypertension 3596312 I10 INCREASE diltiazem to 120mg twice daily Chronic po st-COVID-19 syndrome 0075245657 U09.9 Mixed hyperlipidemia 267 091611 E78.2 Postural o rthostatic tachycardia syndrome 479508530 G90.A Recommend daily fluid intake to 3L of fluids dailyRecom mend daily salt intake to 3.2-4.8g dailyRecom mend wearing compressio n tights daily as tolerated Palpitations 73001952 R0 0.2 INCREASE diltiazem to 120mg twice daily Postural dizziness 23904 7008 R42 Fatigue 59932099 R53.83 [id number] Davi Bangura MD [facility] [address] [facility] [place] [address] 10/04/2024 09:16:58 10/04/2024 11:52:02 Postural orthostatic tachycardia syndrome 889410140 G90.A Mixed hyperlipidemia 267 972357 E78.2 Benign ess ential hypertension 1052719 I10 [address] po [address]-COVID-19 syndrome 8805838136 U09.9 Palpitations 90449703 R0 0.2 Lightheadedness 21659452 8 R42 Dyspnea on exertion 6084 5006 R06.09 Chest pain 68138901 R07. 9 Health Concerns Section Related Observation LastModified by Organization Detai ls LastModified Time None Recorded Concern Status LastModified by Organization Details LastModified Time None Recorded Advance Directives Directive N: Payers Encounter Date Sequence Insurance Name Policy Number Policy Park Covered Member ID Park Member ID Guarantor Name 05/04/2024 1 [facility] Radha Mirta [id number] [employer] teresa Kirby 06/02/2024 1 [facility] [place] [employer]ham[employer] teresa Kirby [id number] [employer] teresa Kirby 07/07/2024 1 [facility] [place] Radham[employer] teresa Kirby [id number] [employer]ham[employer] teresa Kirby 10/04/2024 1 [facility] [place] Radhamaria teresa Kirby [id number] Radham[employer] teresa Kirby Notes Date Note Type [...] ----US, echocardiogram, transthoracic, complete, w/ color flow [id number] stress test [id number] xt/zio monitor exterminator 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 07/07/2024 11:18:19 10/04/2024 text/html Radha Kirby is presenting to the office for a telemedicine follow up appointment. She has a past medical history of HTN, HLD, chronic covid syndrome, POTS. Her last appointment in our office was on 07/07/24 with mo. At this visit we discussed that Radha [...] ----Lipid (03/01/24)Stress (06/13/24)Echo (06/22/24)Monitor (06/09/24) LIBERTAD Santana-Tamara [address] [place] [address], [phone], [facility]. 10/04/2024 10:16:52 OBGyn Episode No OBEpisode recorded.
== END 2025-01-23 08:50 | disposition home or self-care (01) ==
LOC: HO.XRAY 08:49
PROVIDERS: PCP Family Medicine; Visit Provider Nurse Practitioner Family
DX: K21.9 Gastro-esophageal reflux disease without esophagitis (principal)
CPT/HCPCS: 74246

== ENCOUNTER → 2025-01-23 08:52 | Outpatient (BNV) | payer OTHER, SELFPAY | PROVIDERS: PCP Family Medicine; Visit Provider Radiology Diagnostic Radiology | DX: K21.9 Gastro-esophageal reflux disease without esophagitis (principal) | CPT/HCPCS: 74246 ==

== ENCOUNTER 2025-07-11 11:54 | Outpatient (AMB) | payer OTHER, SELFPAY ==
--- NOTE | 2025-07-11 11:56 | A.OFFVIS_ITS ---
Vital Signs 07/11/25 12:09 Height 6 ft 3 in Weight 250 lb BMI 31.2 BP 156/94 H Blood Pressure Location Rt brachial Position Sitting Pulse 96 Pulse Source Pulse Oximeter Pulse Oximetry (%) 99 Oxygen Delivery Method Room Air Intake Visit Reasons: 6m GERD Intake Note: EST PATIENT for mgmt of IBS-D + GERD. Chief Complaint; C.O. persistent IBS sx due to not remembering to take her fiber supplement. Pt does report have general overall improvement with the GERD sx with the PPI and FODMAP. Candle Molder Required: No Accompanied by: Significant Other Allergies Sulfa (Sulfonamide Antibiotics) Allergy (Verified 01/13/25 12:25) Anaphylaxis HPI HPI 6m GERD: Details: LAST VISIT Postprandial epigastric pain GERD (gastroesophageal reflux disease) IBS (irritable bowel syndrome) Abdominal pain Postprandial abdominal bloating Plan Patient reports feeling better with diet. Patient will continue follow FODMAP diet. Examples of different lactose-free milk and other dairy products as well as gluten free products discussed with patient. Patient admits that she does not empty her bowels well, can try senna tea or senna 2 tablets daily. Increase fluid intake and activity to promote better bowel motility. Patient will see go back to taking omeprazole daily. Avoid dietary triggers only night snacking. Staying upright for minimal 3 hours after meals discussed with patient.. Patient is agreeable to current plan of care and verbalizes understanding of instructions. She was given the opportunity to ask questions and all questions answered. ? Thank you for allowing me to participate in her care New omeprazole 40 mg PO DAILY 60 caps 3RF K21.9 sennosides (Natural Senna Laxative) 17.2 mg (2 x 8.6 mg) PO BEDTIME 180 tabs 3RF constipation K59.00 Discontinued esomeprazole magnesium (Nexium) Discontinued Reason: Doctor's Order 40 mg PO DAILY 30 caps 5RF K21.9 TODAY'S VISIT Patient is here today for follow-up. Patient reports that she has noticed improvement if she is following low FODMAP diet. She is trying to avoid dietary triggers as much as possible. Occasional no patient reports that she will forget to take her fiber and will have loose stools. Also depending on what patient eats. Significant improvement of reflux with omeprazole. Patient is using simethicone as needed for bloating. Patient denies dyspepsia, dysphagia or odynophagia. Denies melena, hematochezia, unintentional weight loss or ribbon like stools. Patient denies any other GI concerning symptoms. [facility] Medical History GERD (gastroesophageal reflux disease) Gastritis Hiatal hernia IBS (irritable bowel syndrome) Surgical History Hx of colonoscopy Hx laparoscopic cholecystectomy Status post left foot surgery Social History Patient Tobacco Use Status: Never used Tobacco Current occupational status: unemployed Review of Systems Const Denies weight gain and Denies weight loss ENT Reports no additional complaints, Denies dysphagia and Denies odynophagia Card Reports no additional complaints Resp Reports no additional complaints GI Reports abdominal pain (Occasional epigastric), Denies belching, Denies melena, Reports bloating, Denies change in bowel habits, Denies dysphagia, Denies excessive flatus, Denies dyspepsia, Reports heartburn (Improved), Denies diarrhea, Reports loose stools (Occasional), Denies nausea, Denies odynophagia and Denies vomiting Reports no additional complaints Musc Reports no additional complaints Neuro Reports no additional complaints Psych Reports no additional complaints Endo Reports no additional complaints Physical Exam Vital Signs: Last Vital Signs Pulse 96 07/11/25 12:09 BP 156/94 H 07/11/25 12:09 Pulse Ox 99 07/11/25 12:09 Oxygen Delivery Method Room Air 07/11/25 12:09 BMI result Body Mass Index 31.2 Const General: healthy appearing and no acute distress Nutritional Appearance: obese Orientation/consciousness: patient oriented x3 Resp Effort & Inspection: normal respiratory effort, able to speak in complete sentences, no tracheal deviation and symmetric chest movement Auscultation: clear to auscultation bilaterally Cardio Rate: regular rate GI Inspection: Yes normal to inspection, No distended and Yes obesity Palpation (GI): Soft to palpation, not firm, nontender and No hepatosplenomegaly present Auscultation: normal bowel sounds General: Yes no CVA tenderness Back/Spine/Pelvis Back: no CVA tenderness Skin General skin exam: elasticity normal, turgor normal and dry skin Neuro General: patient oriented x3 Psych Appearance: grossly normal Mental Status: mental status grossly normal Results Reviewed Results Reviewed: Laboratory Tests 11/02/24 12/01/24 09:58 14:40 Direct Bilirubin 0.1 AST 16 ALT 22 Alkaline Phosphatase 82 Vitamin B12 193 L Tiss Transglutamin IgA <1.0 H. pylori Breath Test Negative Assessment & Plan Assessment & Plan (1) Postprandial epigastric pain: Code(s): R10.13 - Epigastric pain (2) Gastroesophageal reflux disease: Code(s): K21.9 - Gastro-esophageal reflux disease without esophagitis Qualifiers: Esophagitis presence: esophagitis presence not specified Qualified Code(s): K21.9 - Gastro-esophageal reflux disease without esophagitis (3) Irritable bowel syndrome: Code(s): K58.9 - Irritable bowel syndrome, unspecified Qualifiers: Irritable bowel syndrome type: with both diarrhea and constipation Qualified Code(s): K58.2 - Mixed irritable bowel syndrome (4) Abdominal pain: Code(s): R10.9 - Unspecified abdominal pain Qualifiers: Abdominal location: epigastric Qualified Code(s): R10.13 - Epigastric pain (5) Postprandial abdominal bloating: Code(s): R14.0 - Abdominal distension (gaseous) Plan Patient will continue omeprazole. Avoid dietary triggers and late night snacking. Staying upright for minimum 3 hours after meals discussed with patient. Patient will take simethicone as needed. Continue low FODMAP diet as much as she can. Fiber daily. Increase fluid intake and activity to promote bowel motility. Follow-up in 6 months, sooner on as needed basis. Patient is agreeable to this plan and verbalizes understanding of instructions. She was given the opportunity to ask questions and all questions answered. Thank you for allowing me to participate in her care Medications: New methylcellulose (laxative) (Citrucel) take it with full glass of water 500 mg PO DAILY 90 tabs 2RF K59.00 - Constipation, unspecified Refilled simethicone 125 mg PO BID-QID PRN 240 caps 4RF abdominal distention Coding Level of Care Code Est Pt Level 4 (31278) Complex EM visit Add On G2211 Diagnoses Postprandial epigastric pain R10.13 Gastroesophageal reflux disease, unspecified whether esophagitis present K21.9 Esophagitis presence: esophagitis presence not specified Irritable bowel syndrome with both constipation and diarrhea K58.2 Irritable bowel syndrome type: with both diarrhea and constipation Epigastric pain R10.13 Abdominal location: epigastric Postprandial abdominal bloating R14.0 Time Spent (min) 35 Comment 25 minutes spent with patient and additional 10 minutes spent reviewing her records
[2025-07-11 12:09] VITALS: BP 156/94; PULSE 96; O2SAT 99; BMI 31.2
--- OUTSIDE RECORDS SUMMARY | 2025-07-11 15:20 | XMS_ITS | Data Portability ---
Author Organization [facility], svmg_admin Address [address] [place] [address] Care Team Providers Care Care Rep Name Role Phone DAVI BANGURA Referring Provider NEELIMA VÁZQUEZ Primary Care Provider [phone] DAVI BANGURA Relations Coordinator Assessment Encounter Date Assessment Date Assessment LastModified by Organization Details LastModified Time 05/04/2024 05/04/2024 I had the pleasu re of evaluating Radha Kirby in my [...] the patient was 5 mins START 1002 [id number] Not available 10/04/2024 10:14:17 Plan of Treatment Reminders Order Date Submit Date Provider Last Modified By Organization Details Last Modified Time Details Appointments None recorded. Lab lipid panel, serum 2024 025 [facility], [address] [place] [address], [address], 5 15:32:27 AST/SGOT (aspartat e aminotran sferase), serum or plasma 2024 025 [facility], [address] [place] [address], [address], 5 10:06:21 ALT (alanine aminotran sferase), serum or plasma 2024 025 [facility], [address] [place] [address], [address], 5 10:06:21 CK (creatine kinase), total, serum 2024 025 [facility], [address] [place] [address], [address], 5 10:06:21 BMP, serum or plasma 2024 025 [facility], [address] [place] [address], [address], 5 10:06:21 lipid panel, serum [address], [address], 5 08:23:37 CK (creatine kinase), total, serum 2023 024 [facility], [address] [place] [address], [address], 5 08:23:37 ALT (alanine aminotran sferase), serum or plasma 2023 [facility], [address] [place] [address], [address], 5 08:23:37 AST/SGOT (aspartat e aminotran sferase), serum or plasma [address], [address], 5 08:23:38 BMP, serum or plasma [address], [address], 5 08:23:37 magnesium , serum or plasma [address], [address], 5 08:23:37 TSH, serum or plasma [address], [address], 5 08:23:37 Referral None recorded. Procedures None recorded. Surgeries None recorded. Imaging electroca rdiogram 2023 [facility] In-Office Order, Internal Use Only DO Not Attach Compendium DO Not Attach Compendium, Do Not Delete/merge, [id number] 11:21:19 electroca rdiogram 2023 024 rwholey In-Office Order, Internal Use Only DO Not Attach Compendium DO Not Attach Compendium, Do Not Delete/merge, [id number] 14:04:14 cardiac cath lab radiology technologist 2023 [facility] [employer], [address] [facility], [facility], [place], [address], 10:45:12 US, echocardi ogram, transthor acic, complete, w/ color flow - 2D Color-taylor w and Doppler with contrast if clinicall y indicated according to protocol. 2023 [place] Not available 15:02:48 exercise stress test 2023 [facility]), [address] [place] [address], [address], 12:11:15 Medication Orders diltiazem ER 120 mg capsule,2 4 hr,extend ed release 2023 [id number], [address] [facility], [place], [address], 11:13:15 Patient TargetsNo targets recorded. Patient Instructions Encounter Date Encounter Id Patient Instructions Last Modified By Organization Details Last Modified Time 05/04/2024 [id number] palpitations: care instructions rwholey Not available 05/04/2024 14:04:14 high blood pressure: care instructions rwholey Not available 05/04/2024 14:04:14 learning about high blood pressure rwholey Not available 05/04/2024 14:04:14 shortness of breath: care instructions rwholey Not available 05/04/2024 14:04:14 06/02/2024 [id number] palpitations: care instructions rwholey Not available 06/02/2024 17:14:23 PLACED A 3 DAY ZIO XT MONITOR FOR PALPITATIONS. ALL QUESTIONS ANSWERED. Not available 06/02/2024 14:04:40 10/04/2024 [id number] high blood pressure: care instructions Not available [...] DO Not Attach Compendium, Do Not Delete/merge, [id number] 05/04/2024 09:02:55 05/04/2005/04/2024 elect rocar diogr am No observ ation record ed. BARCODE Not Available 2023 12:33:22 06/09/20 24 06/09/2024 cardi ac monit or No observ ation record ed. gharding [employer] [address] [place] [address], [place], [address], 07/01/2024 15:45:51 06/20/20 24 06/13/2024 exerc ise stres s test No observ ation record ed. [facility] ([facility]) [address] [place] [address], [address], 06/20/2024 14:49:24 06/29/2006/22/2024 US, echoc ardio gram, trans thora cic, compl ete, w/ color flow No observ ation record ed. gharding Not Available 2023 15:02:58 07/07/20 elect rocar diogr am No observ ation record ed. [email or web address] In-Office Order Internal Use Only DO Not Attach Compendium DO Not Attach Compendium, Do Not Delete/merge, [id number] 07/07/2024 09:53:38 07/07/20 24 07/07/2024 elect melissa roque am No observ ation record ed. BARCODE Not Available 2023 16:51:27 07/11/20 24 06/22/2024 US, echoc ardio gram, trans thora cic, compl ete, w/ color flow No observ ation record ed. [email or web address] Not Available 2023 12:02:41 08/14/20 24 06/13/2024 exerc ise stres s test No observ ation record ed. [facility] ([facility]) [address] [place] [address], [address], 08/14/2024 09:24:21 Result Notes None recorded. Problems Name Problem SNOMED Code Status Onset Date Resolution Date Notes Provider Name and Address Organization Details Recorded Time Irritable bowel syndrome 04105040 Active 2023 Yelitza Estrada [facility] 4 15:01:12 Chronic cwjg-GZCDS-4 9 syndrome 5775641162 Active 2023 Yeiltza Estrada [facility] 15:01:12 Bipolar disorder 92426026 Active 2023 Yelitza Estrada [facility] 15:01:12 Asthma 310088650 Active 2023 Yelitzatiffanie Estrada [facility] 15:01:12 Generalized anxiety disorder 01445059 Active 2023 Yelitza Estrada [facility] 15:01:12 Osteoarthrit is of knee 278564957 Active 2023 Yelitza Estrada [facility] 4 15:01:12 Low back pain 572081771 Active 2023 Yelitzatiffanie Estrada [facility] 4 15:01:13 Attention deficit hyperactivit y disorder, predominantl y inattentive type 96237001 Active 2023 [facility] 4 15:01:13 Autism spectrum disorder 60412083 [facility] 15:01:13 Postural orthostatic tachycardia syndrome 248704921 [facility] 4 15:01:13 Migraine 11122162 Active 2023 Yelitza gregory, [facility] 4 15:01:13 Post-traumat ic stress disorder 77139144 Active 2023 Yelitza Estrada [facility] 4 15:01:13 Essential hypertension 65732627 [facility] 4 15:01:13 Dyslexia 06902220 Active [facility] 4 15:01:13 Hypermobilit y of joint 401881152 Active 2023 Yelitza Estrada [facility] 4 15:01:13 Hiatal hernia 15097165 Active 2023 Yelitza Estrada [facility]. 4 15:01:13 Gender dysphoria 27862006 Active 20[facility] 4 15:01:13 Mixed hyperlipidem ia 282335708 Active 2023 [facility] 4 11:43:56 Benign essential hypertension 1931915 Active 2023 [facility] 4 11:43:57 Problem Notes None recorded. Procedures Surgical History Date Name Laterality Status Provider Name and Address Organization Details Recorded Time Gallbladder Surgery completed [facility] 05/04/2024 09:02:35 Other Surgeries completed [facility] 05/04/2024 09:02:35 Pyloric Stenosis Repair completed [facility] 05/04/2024 09:18:48 Imaging Results None recorded. Procedure Notes None recorded. Medical Equipment None Reported. Allergies Allergen ID Allergen Name Allergen Category Reaction Reaction Severity Criticality Documentation Date Start Date Code Code System Note Provider Name and Address Organization Details Recorded Time 174479 Substance with sulfonami de structure and antibacte rial mechanism of action (substanc e) medicatio n other Not available Not available 05/04/2024 11525 8003 SNOMED [facility] 09:01:10 492133 house dust allergeni c extract environme nt,medica tion respirato ry distress Not available Not available 05/04/2024 31581 9 RxNorm [facility] 09:01:10 Medications Name Sig Start Date Stop [...] Updated DateTime 10/04/2024 190.5 cm Shira Kumar [facility] 10/04/2024 09:26:23 Date Recorded Body weight Body mass index (BMI) Body height Oxygen saturation Oxygen saturation in Arterial blood by Pulse oximetry Heart rate Systolic And Diastolic Systolic And Diastolic Provider Name and Address Organization Details Last Updated DateTime 934127. 28 g 31.5 kg/m2 190.5 cm 98 % 98 % 72 /min 136/80 mm[Hg] 134/78 mm[Hg] Irena Wilkerson [facility] 09:23:37 Date Recorded Body height Body mass index (BMI) Body weight Heart rate Systolic And Diastolic Provider Name and Address Organization Details Last Updated DateTime 07/07/2024 190.5 cm 32.7 kg/m2 329529.2 g 68 /min 110/60 mm[Hg] Dora Treasure [facility] 07/07/2024 10:03:50 Social History Question Answer Notes LastModified by Organizat ion Details LastModified Time Tobacco Smoking Status Never Smoker Irena Nicholsonward [facility] 05/04/2024 09:02:32 Do You Have An Advance Directive? No Information not available 05/04/2024 Are You Blind Or Do You Have Difficulty Seeing? No Information not available 05/04/2024 Is Blood Transfusion Acceptable In An Emergency? Yes Information not available 05/04/2024 What Is Your Level Of Caffeine Consumption? Heavy Information not available 05/04/2024 Are You Deaf [...] Status? Single gharding Information not available 09/15/2024 Has Tobacco Cessation Counseling Been Provided? No Information not available 05/04/2024 How Many Days In The Past Year Have You Consumed 4 Or More Drinks? 2 Information no t available 05/04/2024 Sex: Unknown Functional Status Question Answer Note LastModified by Organizat ion Details LastModified Time Do you use any illicit or recreational drugs? No Information not available 05/04/2024 Do you or have you ever used any other forms of tobacco or nicotine? No Information not available 05/04/2024 What is your level of alcohol consumption? Occasional Information not available 05/04/2024 Are you currently employed? No not currently Information not available 05/04/2024 Are you able to care for yourself independently? No Information not available 05/04/2024 What is your exercise level? Occasional Information not available 05/04/2024 Mental Status Question Answer Note LastModified by Organization D etails LastModified Time Do you feel stressed (tense, restless, nervous, or anxious, or unable to sleep at night)? [id number] Information not available 05/04/2024 Family History Relationship Description Onset Age of [...] Not available 05/04 09:01:15 Brother Hypertensive disorder hwood Not available 05/04 09:01:15 Brother Kidney disease [...] Diagnosis SNOMED-CT Code Diagnosis ICD10 Code Diagnosis IMO Codes Diagnosis Note [id number] Davi Bangura MD [facility] [address] [place] [address] 05/04/2024 08:58:40 05/04/2024 10:24:40 Palpitations 61524911 R00.2 Dyspnea 488918801 R06.02 Benign ess ential hypertension 0752984 I10 Mixed hyperlipidemia 267 910563 E78.2 [id number] Davi Bangura MD [employer] [employer] [facility] [address], [address] [place] [address] 06/02/2024 13:41:22 06/02/2024 14:39:14 Palpitations 38750237 R00.2 [id number] Davi Bangura MD [facility] [address] [place] [address] [address] 07/07/2024 09:49:53 07/07/2024 10:59:34 Benign essential hypertension 8370124 I10 INCREASE diltiazem to 120mg twice daily Chronic po st-COVID-19 syndrome 6685605109 U09.9 Mixed hyperlipidemia 267 674337 E78.2 Postural o rthostatic tachycardia syndrome 052634444 G90.A Recommend daily fluid intake to 3L of fluids dailyRecom mend daily salt intake to 3.2-4.8g dailyRecom mend wearing compressio n tights daily as tolerated Palpitations 25606273 R0 0.2 INCREASE diltiazem to 120mg twice daily Postural dizziness 76635 7008 R42 Fatigue 22868864 R53.83 [id number] Davi Bangura MD [facility] [address] [place] [address] [address] [address] 10/04/2024 09:16:58 10/04/2024 11:52:02 Postural orthostatic tachycardia syndrome 546099628 G90.A Mixed hyperlipidemia 267 771950 E78.2 Benign ess ential hypertension 4306787 I10 [address]-COVID-19 syndrome 8163418588 U09.9 Palpitations 66628150 R0 0.2 Lightheadedness 26803655 8 R42 Dyspnea on exertion 6084 5006 R06.09 Chest pain 21245646 R07. 9 Health Concerns Section Related Observation LastModified by Organization Detai ls LastModified Time None Recorded Concern Status LastModified by Organization Details LastModified Time None Recorded Advance Directives Directive N: Payers Insurance Date Sequence Insurance Name Policy Number Policy Park Covered Member ID Park Member ID Guarantor Name 07/05/2025 1 [facility] [id number] Radha Kirby [id number] Radha Kirby 07/04/2024 2 [facility] (HMO) Radha Kirby [id number] Radha Kirby 01/31/2025 1 [facility] (O) Radha Kirby [id number] Radha Kirby Notes Date Note Type Note Provider Name and Address Organization Details Recorded Time 07/07/2024 text/html ROS as noted in the HPI Radha Kirby is presenting to the office [...] to her overall severe fatigue and long [facility] specialist suggested that better heart rate control [...] ----US, echocardiogram, transthoracic, complete, w/ color flow [id number] stress test 14-24-1450dek xt/zio monitor marine oil terminal superintendent continuous ambulatory cardiac cath lab radiology technologist [id number] 03/01/24 Lauren Diaz PA-C [address] [place] [address], [phone], [facility]. 07/07/2024 11:18:19 10/04/2024 text/html ROS as noted in the HPI Radha Kirby is presenting to the office [...] (03/01/24)Stress (06/13/24)Echo (06/22/24)Monitor (06/09/24) Lauren Diaz PA-C [address] [place], [address], [facility]. 10/04/2024 10:16:52 OBGyn Episode No OBEpisode recorded.
--- OUTSIDE RECORDS SUMMARY | 2025-07-11 15:20 | XMS_ITS | Encounter Summary ---
Author Organization [facility] Address [address] [place] [address] Phone Care Team Providers Care Truck Safety Inspector Name Role Phone Marybel Torres RN Unavailable Corazon Motley MD Primary Care Provider [phone] Reason for Visit * Reason Onset Date [facility] Plan of Care Update Encounter Details Date Type Department Care Team (Late st Contact Info) Description 07/06/2025 Patient Outreach [facility] [address] [place] [address] Marybel Torres RN [address] [place] [phone] [email or web address] iCMP Care Plan Update ([facility] Plan of Care Update) Social History Tobacco Use Types Packs/Day Years Used Date Smoking Tobacco: Never Passive Smoke Exposure: Never Smokeless Tobacco: Never Alcohol Use Standard Drinks/Week Comments Not Currently 0 (1 standard drink = 0.6 oz pure alcohol) Pt rarely has a drink of anything. Education Answer Date Recorded Are you interested in more education? Not on vernell e 02/10/2024 Are you concerned about learning? Not on file 02/10/2024 No 02/10/2024 No 02/10/2024 Digital Access Answer Date Recorded No 02/10/2024 No 02/10/2024 Reliable internet access at home? Not on file 02/10/2024 Device with a working camera? Not on file Intimate Partner Violence Answer Date R ecorded Are you denied basic needs s uch as food, clothing, or medical care? No 02/20/2024 In the past 12 months have y ou been in a relationship with a person who hurts, threatens, or tries to control you? No 02/20/2024 Are you denied basic needs s uch as food, clothing, or medical care? No 02/20/2024 In the past 12 months have y ou been in a relationship with a person who hurts, threatens, or tries to control you? No 02/20/2024 Comments Unknown Sex and Gender Information Value Date Recorded Sex Assigned at Choose not to disclose 4:36 PM EST Legal Sex Female 4:30 PM EST Gender Identity Choose not to disclose 4:36 PM EST Sexual Orientation Lesbian or [place] 08/05/2021 4: 36 PM EST documented as of this encounter Miscellaneous Notes * Plan of Care - Marybel Torres RN - 07/06/2025 2:31 PM EDT [facility] RN CARE COORDINATION NOTE Note Subject: [facility] Plan of Care Note 07/06/2025: Called pt to review/update POC goal progress, as pt may no longer require this program's support with [facility] immigration case manager and possible [facility] services in place. Unable to reach pt. Left message asking for a call back. FOLLOW-UP OUTREACH: Will send letter to pt in 2 weeks if pt has not called back by then, as final attempt to reach pt before discharge from [facility]. Pt has not engaged since March. Contact method: mail Plan of Care Unable to update POC today, as pt could not be reached. documented in this encounter Plan of Treatment Not on file documented as of this encounter Visit Diagnoses Not on filedocumented in this encounter Additional Health Concerns Assessment Noted Time PHQ-9 Depression Total Score: 22 024 12:02 PM EDT PHQ-2 Depression Total Score: 5 06/17/20 24 12:02 PM EDT documented as of this encounter Care Teams Truck Safety Inspector Relationship Specialty Start Date End Date Corazon Motley MD [address] [place] [address] [place] [address] PCP - General Family Medicine 08/17/24 Marybel Torres, RN [address] [place] [phone] [email or web address] PHCM Leakage Tester 05/31/24 documented as of this encounter Additional Source Comments The information contained in this document represents components of the legal health record. It is not the complete legal health record.[facility]
--- OUTSIDE RECORDS SUMMARY | 2025-07-11 15:21 | XMS_ITS ---
Author Organization [facility] Address [address] [place] [address] Phone Care Team Providers Care Commercial Front Load Operator Name Role Phone Marybel Torres RN Unavailable Corazon Motley MD Primary Care Provider [phone] Population Health Care Management (PHCM) Status:Enrolled (Active) Start date:05/31/2024 Enrollment date:05/31/2024 Current support & services provided:[facility] Related social drivers of health:Housing Stability, Child or Family Care, Education, Food, Unemployment, Paying for Meds, Paying Utility Bills, Transportation, Digital Access, SNAP/WIC Case Team Name Relationship Phone Email Marybel Torres RN Registered Nurse(Responsible Staff) Sheila Zepeda PHCM Central Office Repairer Supervisor [email or web address] Continued Care and Services Coordination
--- OUTSIDE RECORDS SUMMARY | 2025-07-11 15:21 | XMS_ITS | Clinical Summary ---
Author Organization [facility] Address [address] [place] [address] Care Team Providers Care Wood Craftsman Name Role Phone Unavailable Primary Care Provider [...] 97 06/20/2019 7:23 PM EDT Temperature 38.9 C (102.1 F) 06/20/2019 7:23 PM EDT Respiratory Rate 16 06/20/2019 7:23 PM EDT [...] 3-dose series) 2005 COVID-19 Vaccine ( - 2024-2 6 season) 2025 Influenza (#1) 2025 Zoster (Shingrix) (1 of 2) 2036 HPV Vaccine (No Doses Required) Completed Hep A Aged Out No longer eligi ble based on patient's age to complete this topic Hib Aged Out No longer eligi ble based on patient's age to complete this topic Meningococcal ACWY Aged Out No longer eligible based on patient's age to complete this topic Pneumococcal Aged Out No longer eligi ble based on patient's age to complete this topic Insurance [facility] F[facility] FOR SERVICE PPO
--- OUTSIDE RECORDS SUMMARY | 2025-07-11 15:21 | XMS_ITS | Clinical Summary ---
Author Organization [facility] Address [address] [place] [address] Phone Care Team Providers Care Rubber Grinder Name Role Phone Marybel Torres RN Unavailable Corazon Motley MD Primary Care Provider [phone] Allergies Active Allergy Reactions Criticality Noted Date Comments Sulfa (Sulfonamide Antibiotics) 02/20/2024 Has avoided due to severe familial allergies to same Medications atorvastatin (LIPITOR) 10 MG tablet Take 1 tablet by mouth daily. 04/13/2023 Active buPROPion (FORFIVO XL) 450 mg Tb24 ER 24 hr tablet Take 300 mg by mouth daily. Active busPIRone (BUSPAR) 15 MG tablet Take 15 mg by mouth 2 (two) times a day. Active cholecalciferol (VITAMIN D3) 2,000 unit capsule Take 1 capsule every day by oral route for 90 days. Active DOCOSAHEXAENOIC ACID ORAL Take 2 g by mouth daily. 1 cap po BID Active docusate sodium (COLACE) 100 MG capsule Take 100 mg by mouth 2 (two) times a day. 02/02/2024 Active estradioL (ESTRACE) 2 MG tablet Take 6 mg by mouth daily. Active hydrOXYzine (ATARAX) 50 MG tablet Take 50 mg by mouth nightly at bedtime as needed. Active medroxyPROGESTE Nayan (PROVERA) 2.5 MG tablet Take 2.5 mg by mouth daily. Active omeprazole (PRILOSEC) 20 MG capsule Take 1 capsule by mouth daily. 12/30/2022 Active spironolactone (ALDACTONE) 50 MG tablet Take 50 mg by mouth daily. Active TIADYLT ER 120 mg 24 hr capsule Take 120 mg by mouth 2 (two) times a day. 07/08/2024 Active lithium carbonate 300 mg tablet Take 300 mg by mouth 3 (three) times a day as needed. 06/30/2024 Active budesonide-form oterol 80-4.5 mcg/actuation inhaler Inhale 2 puffs into the lungs 2 (two) times a day. Active atomoxetine (STRATTERA) 40 MG capsule Take 1 capsule by mouth every morning. 08/30/2024 Active cetirizine (ZYRTEC) 10 MG tablet 09/29/2024 Active coenzyme Q10 100 mg capsule 09/03/2024 Acti ve Active Problems Patient Care Coordination No te Formatting of this note migh t be different from the original. Patient is high risk for these reasons: multiple chronic health conditions, limited resources, and limited supports. Living Situation: lives with partner and a friend in pt's parents' second home. Functional Status (ADL's/iADLs): independent with ADLs, needs assistance at times for iADLs such as meal prep and grocery shopping Family/Social Supports: partner is main support; friends and parents are other supportive people in pt's life Goals of Care (HCP/Molst): HCP on file Community Supports (e.g. VNA, DME Vendors, Elder Services[facility] psychiatrist with independent practice Transportation: pt drives own vehicle Medication Management System/Specialized Pharmacy Needs: keeps meds in bottles, reports misses a dose about once every week. Has pill box but has not yet chosen to use it Financial Concerns: receives [employer] and SNAP benefits; waiting on decision about disability benefits Other Supports and Care Needs: Enrolled in [employer] (initially under name Integrated Care Management Program) since 06/17/2024[id number] other [facility] Problem Noted Date Diagnosed Date Hypertension 08/15/2024 IBS (irritable bowel syndrome) 08/15/2024 Asthma 08/15/2024 POTS (postural orthostatic tachycardia syndrome) 08/15/2024 Migraine 08/15/2024 Autism spectrum disorder 08/15/2024 Anxiety 08/15/2024 Bipolar disorder 08/15/2024 ADHD, 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 PTSD (post-traumatic stress disorder) 08/15/2024 Encounters Date Type Department Care Team Description 07/06/2025 Patient Outreach [facility] [address] [place] [address] Maryble Torres, RN iCMP Care Plan Update ([employer] Plan of Care Update) 06/19/2025 [facility] GENERATED External System Generated Encounter [address] [place] [address] Unknown, Unknown, 06/19/2025 Enrollment [facility] Primary [facility] [address] [place] [address] 06/07/2025 Patient Outreach [facility] [address] [place] [id number] Marybel Torres, RN iCMP Care Plan Update (iCMP Plan of Care Update) 05/17/2025 Patient Outreach [facility] [address] [place] [address] Marybel Torres, RN Care Coordination ([facility] Care Coordination) from Last 3 Months Immunizations Immunization Administration Dates Next Due Tdap 07/21/2024 Social History Tobacco Use Types Packs/Day Years Used Date Smoking Tobacco: Never Passive Smoke Exposure: Never Smokeless Tobacco: Never Tobacco Cessation:Counseling Given: Not Answered Alcohol Use Standard Drinks/Week Comments Not Currently [...] or Dumont 08/05/2021 4: 36 PM EST Last Filed Vital Signs Vital Sign Reading Time Taken Comments Blood Pressure 124/80 08/17/2024 10:35 AM EST Pulse 74 08/17/2024 10:35 AM EST Temperature 36.7 C (98 F) 08/17/2024 10:35 AM EST Respiratory Rate 18 08/04/2024 3:45 PM EST Oxygen Saturation 99% 08/17/2024 10:35 AM EST Inhaled Oxygen Concentration - - Weight 117.9 kg (260 lb) 08/17/2024 10:35 AM EST Height 188 cm (6' 2.02 ) 08/17/2024 10:35 AM EST Body Mass Index 33.37 08/17/2024 10:35 AM EST Plan of Treatment Health Maintenance Due Date Last Done Comments CREATININE LEVEL 1986 LITHIUM LEVEL 1986 POTASSIUM LEVEL 1986 HEPATITIS C SCREENING 2004 HIV ONE-TIME SCREENING (18-6 5 YEARS) 2004 PNEUMOCOCCAL VACCINES (0-49 years) (1 of 2 - PCV) 2005 PAP SMEAR 2007 SCREENING FOR DIABETES 2021 TSH LEVEL 05/22/2022 05/22/2021 BLOOD PRESSURE 02/14/2025 08/17/2024 INFLUENZA VACCINE (#1) 2025 COVID-19 VACCINE (1 - 2024-2 6 season) 2025 DEPRESSION SCREENING 06/17/2025 06/17/2024, 06/17/2024 Adult Td,Tdap Booster 07/21/2034 07/21/2024 SMOKING STATUS SCREENING (On ce After 26 Yrs) Completed 09/30/2024 HEPATITIS A VACCINES Aged Out No long er eligible based on patient's age to complete this topic HIB VACCINES Aged Out No longer eligi ble based on patient's age to complete this topic MENINGOCOCCAL VACCINES (ACWY) Aged Out No longer eligible based on patient's age to complete this topic MENINGOCOCCAL VACCINES (B) Aged Out N o longer eligible based on patient's age to complete this topic Medical Devices Not on file [place] [address] ACO [facility] ACO Advance Directives For more information, please contact: [phone] (9AM - 5PM [facility], Thursday-Thursday) Documents on File Type Date Recorded Patient Assistant Casino Shift Manager Expl anation Healthcare Proxy 07/15/2024 9:02 AM Gonzalo Camacho an Healthcare proxy - Radha Kirby Healthcare Agents on File Name Relationship Healthcare Agent Relationship Communication Gonzalo Yarbrough Life Partner .Primary He alth Care Agent (Proxy form on file) Care Teams Rubber Grinder Relationship Specialty Start Date End Date Corazon Motley MD [address] [place] [address] [place] [phone] PCP - General Family Medicine 08/17/24 Marybel Torres, DORA [address] [place], [place] [phone] [facility] Motion Picture Set Up Worker 05/31/24 Additional Source Comments The information contained in this document represents components of the legal health record. It is not the complete legal health record.[facility]
--- OUTSIDE RECORDS SUMMARY | 2025-07-11 15:21 | XMS_ITS | Clinical Summary ---
Author Organization [facility] Address [address] [place] [address] Care Team Providers Care Rn Case Manager Name Role Phone Kenia Wiggins Primary Care Provider + [phone] Allergies Active Allergy Reactions Criticality Noted Date [...] 113 02/19/2022 9:22 PM EDT Temperature 36.4 C (97.5 F) 02/19/2022 9:22 PM EDT Respiratory Rate 18 02/19/2022 9:22 PM EDT Oxygen Saturation 98% 02/19/2022 9:22 PM EDT Inhaled Oxygen Concentration - - Weight 115.7 kg (255 lb) 02/19/2022 9:24 PM EDT Height - - Body Mass Index - - Plan of Treatment Health Maintenance Due Date Last Done Comments HIV Screening 1986 Varicella Vaccines (1 of 2 - 13+ 2-dose series) 1999 Hepatitis B Vaccines (1 of 3 - 19+ 3-dose series) 2005 DTaP,Tdap,and Td Vaccines (1 - Tdap) 2008 Alcohol/Substance Use Screening 09/21/2024 COVID-19 Vaccine (1 - 2024-2 6 season) 2025 Influenza Vaccine (#1) 2025 RSV Vaccine (60+ years old a nd patients) (1 - 1-dose 75+ series) 2061 Pneumococcal Vaccine: Pediat chepe (0-5 Years) and At-Risk Patients (6-50 Years) Aged Out No longer eligible b ased on patient's age to complete this topic Insurance BCBS OUT OF STATE PPO Care Teams Rn Case Manager Relationship Specialty Start Date End Date Kenia Wiggins [address] [place] [phone] PCP - General Sports Medicine 10/18/19
== END 2025-07-11 12:30 | disposition home or self-care (01) ==
LOC: HO.HGI 11:54
PROVIDERS: PCP Family Medicine; Visit Provider Nurse Practitioner Family
DX: R10.13 Epigastric pain (principal); K21.9 Gastro-esophageal reflux disease without esophagitis; K58.2 Mixed irritable bowel syndrome; R14.0 Abdominal distension (gaseous)
CPT/HCPCS: 99214; G2211